=== PATIENT | female | born 1940 | race Caucasian/White ===

== ENCOUNTER 2019-05-05 20:40 | Inpatient (IN) | payer MEDICARE, SELFPAY ==
[2019-05-05] VITALS (7 sets, daily range): BP systolic 131–151; BP diastolic 63–79; PULSE 70–87; RESP 15–26; TEMP 36.8–38.8; O2SAT 91–99; BMI 33.6
--- NOTE | 2019-05-05 21:14 | CT_ITS ---
STUDY: CT BRAIN WITHOUT CONTRAST REASON FOR EXAM: Female, 79 years old. Fever, headache and confusion. History of Parkinson's disease and dementia. RADIATION DOSAGE (If Supplied By Facility): CTDIvol = ( 44.99 ) mGy, DLP = ( 779.24 ) mGycm TECHNIQUE: Transaxial CT imaging of the brain was performed without administration of intravenous contrast material. Individualized dose optimization techniques were used for this CT. COMPARISON: June 17, 2016. FINDINGS: Normal soft tissue structures. There is a right ventricular shunt extending from a matti hole in the right frontoparietal region into the anterior right lateral ventricle. There is no visualized break in the shunt catheter. Normal size ventricles and extra-axial spaces for the patient's age. Normal white matter tracts of the cerebral hemispheres. Normal basal ganglia and thalami. Normal brainstem. Normal cerebellum. There is no intracranial hemorrhage. There are no findings of an acute ischemic infarction. Normal visualized paranasal sinuses. CT/Brain/Head without Contrast IMPRESSION: 1. STEWARD/STEWARDESS CHIEF CARGO VESSEL shunt catheter without change from the earlier study. 2. No evidence of acute intracranial or calvarial abnormality or interval change. Electronically Signed: Brannon Membreno DO at 22:29 EDT Tel [phone], Service support ,
--- NOTE | 2019-05-05 21:21 | RAD_ITS ---
STUDY: X-RAY CHEST REASON FOR EXAM: Female, 79 years old. Fever TECHNIQUE: Frontal view of the chest COMPARISON: X-ray chest April 03, 2016 FINDINGS: COUTIERIER shunt partially visualized. Pulmonary vascular prominence is present with mild right perihilar edema or trace infiltrate. There are no pleural effusions. There is no pneumothorax. The heart is normal in size. The visualized osseous structures are within normal limits. RAD/Chest 1 View (Portable) IMPRESSION: Pulmonary vascular prominence with mild right perihilar edema or trace infiltrate. Electronically Signed: Fito Bhatti, at 21:37 EDT Tel , Service support ,
[2019-05-05 22:17] LABS: ALB/GLOB Ratio 0.7 RATIO (0.9-2.4); AST(SGOT) 37 U/L (15-37); Alanine Aminotransfer ALT/SGPT 27 U/L (13-56); Albumin, Serum 3.1 g/dL (3.2-5.0); Alkaline Phosphatase 83 U/L (45-117); Anion Gap 7 (5-15); BUN 13 mg/dL (7-18); BUN/Creat Ratio 18.2 RATIO (10-20); Calcium,Total 9.1 mg/dL (8.5-10.1); Chloride 92 mmol/L (98-107); Creatinine, Serum 0.72 mg/dL (0.55-1.02); EST Glomerular Filtration Rate 84 mL/min (>60); Est Glom Filt Rate - Afr Amer 101 mL/min (>60); Estimated Creatinine Clearance 48.97 ml/min; Globulin 4.3 g/dL (2.2-4.2); Glucose 140 mg/dL (74-106); Potassium 3.9 mmol/L (3.5-5.1); Protein, Total 7.4 g/dL (6.4-8.2); Sodium Level 123 mmol/L (136-145)
[2019-05-05 22:21] LABS: Absolute Neutrophil Count 14.9 X10^3/uL (2.0-7.7); Basophil# 0.01 X10^3/uL; Basophil% 0.1 % (0-1); Eosinophil# 0.01 X10^3/uL; Eosinophils% 0.1 % (0-5); Hematocrit 31.7 % (37-47); Lymphocyte % 6.5 % (19-41); Mean Corp Hgb Conc 34.7 g/gl (32-36); Mean Corpuscular Volume 92.2 fL (81-99); Mean Platelet Vol. 10.1 fl (6.2-12.0); Monocyte% 5.3 % (0-10); Neutrophil # 14.89 X10^3/uL (2.7-7.7); Neutrophil % 87.6 % (47-70); Platelet Count 291 K/mm3 (150-450); RBC Distribution Width CV 13.6 % (11.6-14.6); RBC Distribution Width SD 45.5 fl (35.1-43.9); Red Blood Count 3.44 M/mm3 (4.2-5.4)
[2019-05-05 22:22] LABS: POSITIVE COUNT NO; POSITIVE DIFFERENTIAL NO; POSITIVE MORPHOLOGY NO
[2019-05-05 22:52] LABS: Bacteria 0 SEEN /hpf (None Seen); Color, Urine Yellow (Yellow); Glucose, Dipstick Normal (Normal); Ketone-Dipstick Negative (Negative); Leukocyte Esterase-Dipstick 25 /ul (Negative); Mucous, Urine 0 SEEN /hpf (<or=2+); Nitrite-Dipstick Negative (Negative); Occult Blood-Urine 150 /ul (Negative); Protein-Dipstick 100 mg/dl (Negative); Urine Bilirubin Dipstick Negative (Negative); Urine Clarity Clear (Clear); Urine Urobilinogen Normal (Normal)
[2019-05-05 23:00] LABS: Red Blood Cells-Urine 5-10 SEEN /hpf (0-5); Squamous Epithelial Cells - UA 0-5 SEEN /hpf (5-10); White Blood Cells 0-5 SEEN /hpf (0-5)
[2019-05-05] MEDS: Acetaminophen 325 MG Tablet 650 MG PO (23:00)
--- NOTE | 2019-05-05 23:00 | HP.PCM_ITS ---
Problem List (1) Sepsis Status: Acute History of Present Illness Date of Admission: 05/05/19 Chief Complaint: confusion The patient is a 79 year old F with a significant history of NPH s/p TOWER CRANE OPERATOR shunt; hypertension; essential tremors who lives at assisted living facility; and who presented to the emergency department because of confusion. Associated with symptoms is a fever of 102.5; and chills while at assisted living facility. She was given some Tylenol fpc. The fpc notified patient's daughter of the fever. Per patient's daughter patient sounded confused while she(daughter) was chatting with patient daughter over the phone. Also although patient does have a cough from postnasal drip her daughter thinks that the emergency department patient was coughing more. Her cough is not productive of sputum. CT of the emergency department was unremarkable. Chest x-ray showed pulmonary vascular prominence with moderate right perihilar edema or trace infiltrate. Patient was found to have elevated white count and low sodium at the emergency department. Per daughter because of cognitive changes in the last several weeks patient was evaluated for urinary tract infection and and her urinalysis was unremarkable. Her daughter thinks that patient confusion improved even before patient got to the emergency department; and even before antibiotics was started. Past Medical History Past Medical History (Chronic Problems): Chronic Problems Hypertension (Chronic) Osteoarthritis (Chronic) Diabetes mellitus, type II (Chronic) Benign essential tremor (Chronic) Being cared for by Dr. Mane Allergies Sulfa (Sulfonamide Antibiotics) Allergy (Verified 11/11/17 09:26) Unknown peanut Adverse Reaction (Verified 11/11/17 09:26) Other Home Medications: Ambulatory Orders Medication Instructions Recorded Acetaminophen 2 tab PO TID 09/03/17 Acetaminophen [Tylenol] 2 tab PO Q4H PRN 09/03/17 Atenolol 50 mg PO DAILY 09/03/17 Calcium Carbonate/Vitamin D3 1 each PO DAILY 09/03/17 [Calcium 500-Vit D3 200 Tablet] Hydrochlorothiazide [Hctz] 25 mg PO QODAY 09/03/17 Lisinopril 20 mg PO DAILY 09/03/17 Multivitamins,Therapeutic 1 tablet PO DAILY 09/03/17 [Multivitamin] Ondansetron HCl [Zofran] 4 mg PO Q8H PRN 09/03/17 Oxycodone HCl [Roxicodone] 5 mg PO Q4H PRN 09/03/17 Polyethylene Glycol 3350 [Miralax] 17 gm PO DAILY PRN 09/03/17 Primidone [Mysoline] 50 mg PO TID 09/03/17 Pyridoxine HCl [Vitamin B6] 150 mg PO DAILY 09/03/17 Sertraline HCl [Zoloft] 50 mg PO DAILY 09/03/17 Hyoscyamine Sulfate 0.125 mg SL Q12H PRN PRN 11/11/17 Potassium Chloride [Klor-Con M15] 20 meq PO DAILY 11/11/17 Surgical History: tonsillectomy Psychiatric History: No pertinent psych hx CLARIFIER History: No pertinent CLARIFIER history Lives: Longterm Smoking Status: Never smoker - *Family History Maternal History Items: Seizures, - - Temporal arteritis Paternal History Items: Heart Disease Review of Systems Constitutional: Reports: Chills, Fever. Denies: Weight Change HEENT: Denies: Head Aches, Sinus Congestion, Sinus Drainage Cardiovascular: Denies: Chest Pain, Palpitations Respiratory: Reports: Cough. Denies: Shortness of breath at rest, Sputum production Gastrointestinal: Denies: Abdominal Pain, Nausea, Vomiting Genitourinary: Denies: Dysuria Musculoskeletal: Denies: Joint Pain, Joint Tenderness Skin: Denies: Rash, Wounds Neurological: Denies: Numbness, Tingling, Focal weakness Psychiatric: Denies: Homicidal Ideations, Suicidal Ideations Hematologic/ Lymphatic: Denies: Easy Bruising, Easy Bleeding VTE Information - Inpt Only VTE Present on Admission: No VTE Mechan Device Prophylaxis: None VTE Pharm Prophylaxis ordered?: Yes Patient Problems: Active and Suspected Problems Community acquired bacterial pneumonia (Acute) Sepsis (Acute) Hyponatremia (Acute) - Physical Exam General: Alert, Cooperative, - - Patient is oriented to the year, month and place. She was not oriented to the day. HEENT: Atraumatic, PERRLA, EOMI, Normocephalic Neck: Supple, No JVD, Negative Carotid Bruits Lungs: Rales - Mild and scattered, Wheezes - Mild and scattered Cardiovascular: Regular rate, No murmurs Abdomen: Bowel Sounds Present, Soft, Non Tender Extremities: No edema, Capillary Refill Less than 3 Seconds Skin: No rashes, No breakdown Musculoskeletal: No Tenderness to Palpation of Joints or Extremities Neurological: Cranial nerves II-XII grossly intact Psych/Mental Status: Normal Affect, Appropriate Vital Signs Temp Pulse Resp BP Pulse Ox 100.1 F H 87 26 H 134/70 H 97 05/05/19 22:34 05/05/19 22:59 05/05/19 22:59 05/05/19 22:59 05/05/19 22:59 Oxygen Delivery Method Room Air Weight: 68 kg Body Mass Index (BMI) 33.6 Laboratory Tests Past 24 Hrs 05/05/19 05/05/19 05/05/19 21:52 21:52 21:52 WBC 17.0 H RBC 3.44 L Hgb 11.0 L Hct 31.7 L MCV 92.2 MCH 32.0 MCHC 34.7 RDW 13.6 RDW Differential 45.5 H Plt Count 291 MPV 10.1 Immature Gran % (Auto) 0.400 Neut % (Auto) 87.6 H Lymph % (Auto) 6.5 L [place] % (Auto) 5.3 Eos % (Auto) 0.1 Baso % (Auto) 0.1 Absolute Neuts (auto) 14.9 H Absolute Lymphs (auto) 1.10 Total Counted Not Reportable Sodium 123 L Potassium 3.9 Chloride 92 L Carbon Dioxide 24.0 Anion Gap 7 BUN 13 Creatinine 0.72 Estim Creat Clear Calc 48.97 Est GFR (MDRD) Af Amer 101 Est GFR (MDRD) Non-Af 84 BUN/Creatinine Ratio 18.2 Glucose 140 H Lactic Acid 1.0 Calcium 9.1 Total Bilirubin 0.30 AST 37 ALT 27 Alkaline Phosphatase 83 Total Protein 7.4 Albumin 3.1 L Globulin 4.3 H Albumin/Globulin Ratio 0.7 L Urine Color Urine Clarity Urine pH Ur Specific [place] Urine Protein Urine Glucose (UA) Urine Ketones Urine Occult Blood Urine Nitrite Urine Bilirubin Urine Urobilinogen Ur Leukocyte Esterase Urine RBC Urine WBC Ur Squamous Epith Cells Urine Bacteria Urine Mucus 05/05/19 22:45 WBC RBC Hgb Hct MCV MCH MCHC RDW RDW Differential Plt Count MPV Immature Gran % (Auto) Neut % (Auto) Lymph % (Auto) [place] % (Auto) Eos % (Auto) Baso % (Auto) Absolute Neuts (auto) Absolute Lymphs (auto) Total Counted Sodium Potassium Chloride Carbon Dioxide Anion Gap BUN Creatinine Estim Creat Clear Calc Est GFR (MDRD) Af Amer Est GFR (MDRD) Non-Af BUN/Creatinine Ratio Glucose Lactic Acid Calcium Total Bilirubin AST ALT Alkaline Phosphatase Total Protein Albumin Globulin Albumin/Globulin Ratio Urine Color Yellow Urine Clarity Clear Urine pH 7.0 Ur Specific [place] 1.010 Urine Protein 100 H Urine Glucose (UA) Normal Urine Ketones Negative Urine Occult Blood 150 H Urine Nitrite Negative Urine Bilirubin Negative Urine Urobilinogen Normal Ur Leukocyte Esterase 25 H Urine RBC 5-10 SEEN Urine WBC 0-5 SEEN Ur Squamous Epith Cells 0-5 SEEN Urine Bacteria 0 SEEN Urine Mucus 0 SEEN Assessment/Plan All Active Problems Community acquired bacterial pneumonia (Acute) Sepsis (Acute) Hyponatremia (Acute) Tremor (Acute) Confusion (Acute) Gastroenteritis (Acute) Hypokalemia (Acute) Physical debility (Acute) The patient is a 79 year old F with a significant history of NPH s/p TOWER CRANE OPERATOR shunt; hypertension; essential tremors who lives at assisted living facility; and who presented to the emergency department because of confusion; fever and found to have leukocytosis; radiographic evidence of infiltrate and hyponatremia consistent with sepsis secondary to pneumonia.. Sepsis secondary to pneumonia Lactic acid: 1 RR ~20 to 24 on admission CURB 65: 2 (age; confusion) Blood culture ?2 is pending Chest x-ray: Pulmonary vascular prominence with mild right perihilar edema or trace infiltrate. Chest x-ray was independently reviewed. I agree with radiologist interpretation. Respiratory Gram stain and culture pending Antibiotics: Received ceftriaxone and azithromycin in emergency department; continued DuoNeb scheduled. Albuterol as needed Legionella antigen screen and Strep antigen ordered Trend CBC and BMP. Her brain CT did not show any obstruction from the TOWER CRANE OPERATOR shunt; and per daughter patient confusion was improving even before antibiotics were started at the emergency department. Therefore a TOWER CRANE OPERATOR shunt is less likely. However if patient wax and wane consider TOWER CRANE OPERATOR shunt infection and broaden antibiotics. Her urine was unremarkable for infection however it showed proteinuria patient can follow-up in the outpatient setting. Hyponatremia and hypochloremia On presentation her sodium was 123 Review of old records shows that generally had a sodium has been above 130. 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 Will stop thiazide at this time. Hold potassium chloride while HCTZ is on hold Trend BMP. Confusion unlikely from hyponatremia since his sodium is above 120. Hypertension In regards to age her blood pressure is stable Although patient has sepsis she is not in septic shock will continue at home atenolol and lisinopril. Trend blood pressure and adjust blood pressure medication as necessary Depression/anxiety Zoloft continued Essential tremor Primidone continued Chronic pain Oxycodone continued DVT prophylaxis Subcutaneous Lovenox ordered. Code Visit Inpatient E&M: 49184 Init Hosp L3
--- NOTE | 2019-05-05 23:01 | ED.VIS.GEN ---
History of Present Illness Chief Complaint: Fever Narrative: 79-year-old female presents with fever from an assisted living facility. Her fever was 102.5 today. She had a slight cough but no other significant symptoms. No headache or neck pain. She does have a LOOM OPERATOR APPRENTICE shunt in for normal pressure hydrocephalus but has not had any issues with it. She was not complaining of back or abdominal pain. Bowel movements have been normal. She had a negative urinalysis at the facility. Her daughter is concerned for sepsis and pneumonia. Current severity is moderate. She received Tylenol at the facility. Past Medical History - Allergies and Home Meds Allergies/Adverse Reactions: Allergies Sulfa (Sulfonamide Antibiotics) Allergy (Verified 11/11/17 09:26) Unknown peanut Adverse Reaction (Verified 11/11/17 09:26) Other Primary Care Physician: Karli Thayer DO [Primary Care Provider] - Prior records reviewed: Yes Surgical History: tonsillectomy Smoking Status: Never smoker - Family History Maternal Family History: Reports: No pertinent history Paternal Family History: Reports: No pertinent history Review of Systems ROS: Unable to Obtain All systems negative except as indicated General: Reports: Fever. Denies: Chills, Sweats Eyes: Denies: Visual changes - bilaterally, Diplopia ENT: Denies: Rhinorrhea, Sore throat Cardiovascular: Denies: Chest pain, Palpitations Respiratory: Reports: Cough. Denies: Dyspnea, Dyspnea on exertion Gastrointestinal: Denies: Abdominal pain, Nausea, Vomiting, Diarrhea, Melena, Hematochezia Genitourinary: Denies: Dysuria, Hematuria, Frequency Musculoskeletal: Denies: Back pain, Extremity Pain Skin: Denies: Rash, Wounds Neurological: Reports: Weakness. Denies: Headache, Numbness Endocrine: Denies: Polydipsia Hematologic: Denies: Easy bleeding Physical Exam Vital Signs/Narrative: Vital Signs Temp Pulse Resp BP Pulse Ox 05/05/19 22:59 87 26 H 134/70 H 97 05/05/19 22:34 100.1 F H 83 20 H 134/70 H 94 05/05/19 22:04 99.0 F 78 15 134/70 H 99 05/05/19 20:47 98.3 F 71 15 131/67 H 92 05/05/19 20:40 98.3 F 70 18 131/63 H 91 Inital Vital Signs reviewed: Yes General: Well nourished, No Acute Distress Head: Normocephalic Eyes: Perrl ENT: Dry mucous membranes Neck: Supple Cardiovascular: Regular rate, Regular rhythm, No murmurs, Normal S1, Normal S2 Respiratory: No distress, CTA bilaterally Abdomen: Soft, Nontender, Nondistended, Normal bowel sounds Back: Nontender Extremities: Nontender, No edema Skin: Normal color, No rash Neurological: Alert, Oriented x3, Cranial nerves II-XII grossly intact Psychological: Normal affect Diagnostic/Tx/Re-eval - Medical Decision Making Chest x-ray reveals right perihilar infiltrate. Urinalysis is unremarkable. Blood and urine cultures were sent. Lactic acid is normal. White blood cell count is 17,000 and sodium is 123. She was given IV Rocephin and Zithromax. She has not been hospitalized in the past 3 months and she is at the assisted living side of the facility, not nursing home so she is community-acquired pneumonia by definition. CT brain is negative and she has no neck pain or other findings to suggest a LOOM OPERATOR APPRENTICE shunt issue. She has remained him dynamically stable and appears safe for admission to [facility]. ED Disposition - Plan for ED Patient: Disposition: Acute Care Hospital [facility] Diagnosis: Hyponatremia, Community acquired bacterial pneumonia, Sepsis Referrals: Karli Thayer DO [Primary Care Provider] -
[2019-05-05] MEDS: Ceftriaxone 1 GM/50 ML BAG IV (23:09)
[2019-05-06] VITALS (13 sets, daily range): BP systolic 125–133; BP diastolic 57–91; PULSE 65–85; RESP 16–18; TEMP 36.9–38.7; O2SAT 92–95; BMI 33.0; BMI 33.4
[2019-05-06] MEDS: 0.9% Normal Saline 1,000 ML 75 ML IV (01:00)
[2019-05-06] MEDS: Primidone 50 MG Tablet PO ×3 (06:02→21:30)
[2019-05-06] MEDS: Acetaminophen 325 MG Tablet 650 MG PO ×3 (06:11→23:28)
[2019-05-06 06:34] LABS: Absolute Lymphocyte Count 0.71 X10^3/ul (0.83-4.51); Absolute Neutrophil Count 11.4 X10^3/uL (2.0-7.7); Basophil# 0.01 X10^3/uL; Basophil% 0.1 % (0-1); Eosinophil# 0.01 X10^3/uL; Eosinophils% 0.1 % (0-5); Hematocrit 29.9 % (37-47); Hemoglobin 10.3 g/dl (12.0-15.0); Lymphocyte # 0.71 X10^3/ul (4.0); Lymphocyte % 5.5 % (19-41); Mean Corp Hgb Conc 34.4 g/gl (32-36); Mean Corpuscular Hgb 31.7 pg (27.0-32.0); Mean Platelet Vol. 10.2 fl (6.2-12.0); Monocyte# 0.85 X10^3/uL; Monocyte% 6.5 % (0-10); Neutrophil # 11.38 X10^3/uL (2.7-7.7); Neutrophil % 87.3 % (47-70); Platelet Count 263 K/mm3 (150-450); RBC Distribution Width CV 13.6 % (11.6-14.6); RBC Distribution Width SD 45.3 fl (35.1-43.9); Red Blood Count 3.25 M/mm3 (4.2-5.4)
[2019-05-06 06:36] LABS: POSITIVE COUNT NO; POSITIVE DIFFERENTIAL NO; POSITIVE MORPHOLOGY NO
[2019-05-06] MEDS: Ipratropium/Albuterol Sulfate 3 ML AMPUL.NEB INHALATION (06:46)
[2019-05-06 06:52] LABS: Anion Gap 11 (5-15); BUN 8 mg/dL (7-18); BUN/Creat Ratio 14.3 RATIO (10-20); Calcium,Total 8.4 mg/dL (8.5-10.1); Chloride 93 mmol/L (98-107); Creatinine, Serum 0.56 mg/dL (0.55-1.02); EST Glomerular Filtration Rate 111 mL/min (>60); Est Glom Filt Rate - Afr Amer 135 mL/min (>60); Estimated Creatinine Clearance 48.67 ml/min; Glucose 120 mg/dL (74-106); Potassium 3.7 mmol/L (3.5-5.1); Sodium Level 127 mmol/L (136-145)
[2019-05-06] MEDS: Sertraline 50 MG Tablet PO (09:38)
[2019-05-06] MEDS: Enoxaparin 40 MG/0.4 ML Syringe SC (09:38)
[2019-05-06] MEDS: Lisinopril 20 MG Tablet PO (09:38)
[2019-05-06] MEDS: Atenolol 50 MG Tablet PO (09:38)
[2019-05-06] MEDS: Calcium Carb/Vitamin D 1 TABLET Tablet PO (09:38)
[2019-05-06] MEDS: guaiFENesin 1,200 MG Tablet 1200 MG PO ×2 (09:39→21:30)
--- NOTE | 2019-05-06 14:26 | PN_ITS ---
Patient Problems: Active and Suspected Problems Community acquired bacterial pneumonia (Acute) Sepsis (Acute) Hyponatremia (Acute) Subjective: The patient is a 79-year-old female with a past medical history of normal pressure hydrocephalus with POWERHOUSE MECHANIC APPRENTICE shunt, hypertension, essential tremors and obesity who lives at an assisted living facility. She presented to the emergency department on 05/05/2019 complaining of confusion. Additionally she had a fever to 102.5 associated with shaking chills. Vital signs at presentation to the emergency room are temperature 98.3, pulse rate 70, blood pressure 131/63, respiratory rate 18, 91% saturation on room air. White blood cell count was elevated at 17 with 88% neutrophils. Hemoglobin was 11 and platelets were within normal limits. There were normochromic normocytic indices with a normal RDW. Sodium was low at 123 and the chloride was 92. BUN was 13 and the creatinine was 0.72. Lactic acid was 1.0. LFTs were normal. UA showed 0-5 white blood cells per high-power field with no bacteria. A noncontrasted CT scan of the brain showed no evidence of acute intracranial or calvarial abnormality or interval change. The POWERHOUSE MECHANIC APPRENTICE shunt was present. Chest x-ray shows a right basilar pneumonia. Blood and urine cultures were sent from the emergency department. She was admitted to a monitored bed on PCU with a diagnosis of sepsis secondary to pneumonia. She was started on ceftriaxone and azithromycin. All events of the past 24 hours of been reviewed. T-max is 101.9. Current temp is 101.1. Vital signs are stable. Pulse ox on room air is 92% but she was tachypneic when I was in the room. All lab was personally reviewed. White blood cell count today is 13, down from 17 at admission. She has a persistent left shift. Hemoglobin is 10.3, down from 11 at admission. Platelets are within normal limits. Sodium is 127 with a chloride of 93. BUN is 8 with a creatinine of 0.56. She is c/o a JALLOH. She reportedly has a cough but she did not cough for the 25 minutes I was in her room. She also is c/o Left knee pain. She denies CP. She denies SOB. - Physical Exam General: Alert, Cooperative, Well developed, Well nourished, - - She is oriented to person and was able to tell me that she is in the hospital. Could not tell me the year or where she lives. She was able to tell me that Viola was the president. She is able to follow simple commands HEENT: Atraumatic, PERRLA, EOMI, Normocephalic, - - she was able to touch her chin to her chest and she has no nuchal rigidity. Oral: Dry Mucosa Neck: Supple, No JVD, Negative Carotid Bruits, No Nodes, No Nuchal Rigidity, Trachea Midline Lungs: No rhonchi, No wheeze, Rales - coarse in the R base, Tachypneic, - - No accessory muscle use Cardiovascular: Regular rate, Regular Rhythm, Normal S1, Normal S2, No murmurs, No Ectopic Activity, No rub noted, No Gallop, - - Telemetry shows normal sinus rhythm with occasional PVC. Abdomen: Bowel Sounds Present, Soft, Non Tender, Non-Distended Extremities: No clubbing, No cyanosis, Edema - of the distal LE's with evidence of venous HTN Skin: No rashes Neurological: Cranial nerves II-XII grossly intact, Neuro grossly intact Psych/Mental Status: Agitated - at times and appropriate at others Vital Signs Temp Pulse Resp BP Pulse Ox 101.1 F H 70 18 132/91 H 92 05/06/19 13:40 05/06/19 13:40 05/06/19 13:40 05/06/19 13:40 05/06/19 13:40 Oxygen Delivery Method Room Air Weight: 148 lb 15.991 oz Body Mass Index (BMI) 33.4 Intake and Output for Last 24 Hours 05/04/19 05/05/19 05/06/19 23:59 23:59 23:59 Intake Total 1326 / 1326 Balance 1326 / 1326 Microbiology Past 72 Hours 05/06/19 10:25 Streptococcus pneumoniae Antigen (M - Final Urine Catheter - Catheter 05/06/19 10:25 Legionella Antigen - Final Urine Catheter - Catheter Laboratory Tests Past 24 Hrs 05/05/19 05/05/19 05/05/19 21:52 21:52 21:52 WBC 17.0 H RBC 3.44 L Hgb 11.0 L Hct 31.7 L MCV 92.2 MCH 32.0 MCHC 34.7 RDW 13.6 RDW Differential 45.5 H Plt Count 291 MPV 10.1 Immature Gran % (Auto) 0.400 Neut % (Auto) 87.6 H Lymph % (Auto) 6.5 L [place] % (Auto) 5.3 Eos % (Auto) 0.1 Baso % (Auto) 0.1 Absolute Neuts (auto) 14.9 H Absolute Lymphs (auto) 1.10 Total Counted Not Reportable Sodium 123 L Potassium 3.9 Chloride 92 L Carbon Dioxide 24.0 Anion Gap 7 BUN 13 Creatinine 0.72 Estim Creat Clear Calc 48.97 Est GFR (MDRD) Af Amer 101 Est GFR (MDRD) Non-Af 84 BUN/Creatinine Ratio 18.2 Glucose 140 H Lactic Acid 1.0 Calcium 9.1 Total Bilirubin 0.30 AST 37 ALT 27 Alkaline Phosphatase 83 Total Protein 7.4 Albumin 3.1 L Globulin 4.3 H Albumin/Globulin Ratio 0.7 L Urine Color Urine Clarity Urine pH Ur Specific [place] Urine Protein Urine Glucose (UA) Urine Ketones Urine Occult Blood Urine Nitrite Urine Bilirubin Urine Urobilinogen Ur Leukocyte Esterase Urine RBC Urine WBC Ur Squamous Epith Cells Urine Bacteria Urine Mucus 05/05/19 05/06/19 05/06/19 22:45 05:15 05:15 WBC 13.0 H RBC 3.25 L Hgb 10.3 L Hct 29.9 L MCV 92.0 MCH 31.7 MCHC 34.4 RDW 13.6 RDW Differential 45.3 H Plt Count 263 MPV 10.2 Immature Gran % (Auto) 0.500 Neut % (Auto) 87.3 H Lymph % (Auto) 5.5 L [place] % (Auto) 6.5 Eos % (Auto) 0.1 Baso % (Auto) 0.1 Absolute Neuts (auto) 11.4 H Absolute Lymphs (auto) 0.71 L Total Counted Not Reportable Sodium 127 L Potassium 3.7 Chloride 93 L Carbon Dioxide 23.0 Anion Gap 11 BUN 8 Creatinine 0.56 Estim Creat Clear Calc 48.67 Est GFR (MDRD) Af Amer 135 Est GFR (MDRD) Non-Af 111 BUN/Creatinine Ratio 14.3 Glucose 120 H Lactic Acid Calcium 8.4 L Total Bilirubin AST ALT Alkaline Phosphatase Total Protein Albumin Globulin Albumin/Globulin Ratio Urine Color Yellow Urine Clarity Clear Urine pH 7.0 Ur Specific [place] 1.010 Urine Protein 100 H Urine Glucose (UA) Normal Urine Ketones Negative Urine Occult Blood 150 H Urine Nitrite Negative Urine Bilirubin Negative Urine Urobilinogen Normal Ur Leukocyte Esterase 25 H Urine RBC 5-10 SEEN Urine WBC 0-5 SEEN Ur Squamous Epith Cells 0-5 SEEN Urine Bacteria 0 SEEN Urine Mucus 0 SEEN Medical Necessity - Tobacco Use Smoking Status: Never smoker Assessment/Plan All Active Problems Community acquired bacterial pneumonia (Acute) Sepsis (Acute) Hyponatremia (Acute) Tremor (Acute) Confusion (Acute) Gastroenteritis (Acute) Hypokalemia (Acute) Physical debility (Acute) Impressions 1. severe sepsis with encephalopathy possibly due to CAP but with a pt with a POWERHOUSE MECHANIC APPRENTICE shunt and JALLOH can not rule out infected POWERHOUSE MECHANIC APPRENTICE shunt at this time. 2. RLL CAP 3. Hyponatremia - due to SIADH or to sodium depletion related to HCTZ? Will check a urine sodium and a urine and serum osmolality since she has been off diuretics for 24 hours. 4. NPH with a POWERHOUSE MECHANIC APPRENTICE shunt 5. Hypertension 6. Osteoarthritis 7. Diabetes mellitus type 2-apparently diet controlled because the patient is on no oral hypoglycemics or insulin 8. Essential tremor-on Mysoline 9. Anxiety/depression-on Zoloft 10. Normochromic normocytic anemia with a normal RDW DC Rocephin and azithromycin. Start meropenem 2 g IV every 8 hours and vancomycin LP under fluoroscopy tomorrow by Dr. Milner-I talked to her daughter Jeanna and she will come in to sign the consent form MRI of the brain tomorrow with and without contrast Consult Dr. Guevara Tylenol 650 mg p.o. every 6 hours to prevent temperature fluctuations and shaking chills Urine and blood cultures are pending Haldol 2 mg IV every 6 hours as needed agitation Hold enoxaparin in the a.m. in preparation for lumbar puncture Recheck lab in the a.m. Urine sodium and urine and serum osmolality now Hemoglobin A1c in the a.m. Discontinue duo nebs because the patient is not wheezing. Continue albuterol every 2 hours as needed If she has an infected POWERHOUSE MECHANIC APPRENTICE shunt she will need to be transferred to [facility] to have the shunt removed. Code Visit Inpatient E&M: 59798 [facility] L3
--- NOTE | 2019-05-06 15:23 | PCM.RX.CS ---
Consult Pharmacy has been consulted to manage selected antiobiotic: Vancomycin Type of Consult: New start Suspected Infection: Other - Infected BAND CUTTING MACHINE OPERATOR Shunt Labs: Sodium 127 mmol/L (136-145) L 05/06/19 05:15 Potassium 3.7 mmol/L (3.5-5.1) 05/06/19 05:15 Chloride 93 mmol/L (98-107) L 05/06/19 05:15 Carbon Dioxide 23.0 mmol/L (21.0-32.0) 05/06/19 05:15 11 (5-15) 05/06/19 05:15 BUN 8 mg/dL (7-18) 05/06/19 05:15 0.56 mg/dL (0.55-1.02) 05/06/19 05:15 Est GFR (MDRD) Af Amer 135 mL/min (>60) 05/06/19 05:15 Est GFR (MDRD) Non-Af 111 mL/min (>60) 05/06/19 05:15 14.3 RATIO (10-20) 05/06/19 05:15 Glucose 120 mg/dL (74-106) H 05/06/19 05:15 Microbiology: Microbiology 05/06/19 10:25 Urine Catheter - Catheter Streptococcus pneumoniae Antigen (M - Final 05/06/19 10:25 Urine Catheter - Catheter Legionella Antigen - Final Weight used for dosin kg Estimated Creatinine Clearance: 44 mL/min Goal Trough: 15-20 mcg/mL Pharmacy Plan for Drug Dosing: Vancomycin 1250mg IV x1 followed by 750mg IV q12h with trough prior to 4th dose per policy. Pharmacy Service will continue to monitor and adjust dosing as required. Follow-Up Labs: Trough Vancomycin - 05/08 @ 4643
[2019-05-06 16:06] LABS: Allen Test POS; Base Excess -6 mmol/L (-2 to +2); Bicarbonate 17.8 mmol/L (22-26); Blood Gas Specimen Type ART; O2 Delivery Device Room Air; PO2 64 mmHG (75-100); SITE L Radial; SO2 94 % (95-99); Time Given 1555; Total Carbon Dioxide 19 mmol/L; pCO2 25.2 mmHg (35-45); pH 7.46 (7.35-7.45)
[2019-05-06 16:34] LABS: T4 Free Direct 0.92 ng/dL (0.76-1.46); Thyroid Stim Hormone (TSH) 1.05 uIU/mL (0.358-3.74)
[2019-05-06 16:38] LABS: Osmolality, Serum 257 mOsm/KG (280-301)
[2019-05-07] VITALS (7 sets, daily range): BP systolic 123–144; BP diastolic 62–79; PULSE 64–72; RESP 16–20; TEMP 36.6–36.9; O2SAT 96–97
[2019-05-07] MEDS: Vancomycin IV 500 MG/100 ML BAG 100 MG IV (04:05)
[2019-05-07 04:23] LABS: Urine Sodium 26 mmol/L (Not Establ.)
[2019-05-07 04:31] LABS: Osmolality, Urine 458 mOsm/KG
[2019-05-07 05:35] LABS: Absolute Lymphocyte Count 1.45 X10^3/ul (0.83-4.51); Absolute Neutrophil Count 9.2 X10^3/uL (2.0-7.7); Basophil# 0.01 X10^3/uL; Basophil% 0.1 % (0-1); Eosinophil# 0.08 X10^3/uL; Eosinophils% 0.7 % (0-5); Hematocrit 28.2 % (37-47); Hemoglobin 9.5 g/dl (12.0-15.0); Lymphocyte # 1.45 X10^3/ul (4.0); Lymphocyte % 12.5 % (19-41); Mean Corp Hgb Conc 33.7 g/gl (32-36); Mean Corpuscular Volume 92.2 fL (81-99); Mean Platelet Vol. 10.2 fl (6.2-12.0); Monocyte# 0.71 X10^3/uL; Monocyte% 6.1 % (0-10); Neutrophil # 9.23 X10^3/uL (2.7-7.7); Neutrophil % 79.5 % (47-70); Platelet Count 249 K/mm3 (150-450); RBC Distribution Width CV 13.7 % (11.6-14.6); RBC Distribution Width SD 44.2 fl (35.1-43.9); Red Blood Count 3.06 M/mm3 (4.2-5.4); White Blood Count 11.6 K/mm3 (4.4-11.0)
[2019-05-07 05:38] LABS: POSITIVE COUNT NO; POSITIVE DIFFERENTIAL NO; POSITIVE MORPHOLOGY NO
[2019-05-07 05:45] LABS: Anion Gap 11 (5-15); BUN 11 mg/dL (7-18); BUN/Creat Ratio 20.7 RATIO (10-20); Chloride 97 mmol/L (98-107); Creatinine, Serum 0.53 mg/dL (0.55-1.02); EST Glomerular Filtration Rate 118 mL/min (>60); Est Glom Filt Rate - Afr Amer 143 mL/min (>60); Estimated Creatinine Clearance 48.67 ml/min; Glucose 125 mg/dL (74-106); Phosphorus 1.7 mg/dL (2.5-4.9); Potassium 3.3 mmol/L (3.5-5.1); Sodium Level 131 mmol/L (136-145)
[2019-05-07] MEDS: Acetaminophen 325 MG Tablet 650 MG PO ×2 (06:08→12:19)
[2019-05-07] MEDS: Primidone 50 MG Tablet PO ×2 (06:08→14:16)
--- NOTE | 2019-05-07 08:37 | PN_ITS ---
Patient Problems: Active and Suspected Problems Community acquired bacterial pneumonia (Acute) Sepsis (Acute) Hyponatremia (Acute) Subjective: Day #2 vancomycin and Merrem All events of the past 24 hours been reviewed. T-max 101.1 on 05/06/2019 at 1340. Her last temp was 98.4. She was started on scheduled Tylenol yesterday to prevent shaking chills Blood pressure is stable and within normal limits. She is currently 96% saturated on 2 L nasal cannula. Very poor oral intake All lab was personally reviewed. White blood cell count is 11.6 today with 80% neutrophils and 1.1% immature granulocytes. ABG showed pH of 7.46 with PCO2 of 25 and a PO2 of 64 on room air. She was placed on 2 L nasal cannula. Tachypnea improved after being placed on oxygen. Sodium today is 131 and the potassium is low at 3.3. Supplementation has been ordered. The BUN is 11 and the creatinine is 0.53 today. Phosphorus is low at 1.7. Magnesium is normal at 2. Serum osmolality was low at 257 yesterday. Urine osmolality was 458 and the random sodium was 26. Hemoglobin A1c is 6.0. - Physical Exam Vital Signs Temp Pulse Resp BP Pulse Ox 98.4 F 65 16 144/79 H 96 05/07/19 03:29 05/07/19 07:25 05/07/19 03:29 05/07/19 03:29 05/07/19 03:29 Oxygen Flow Rate (L/min) 2 Oxygen Delivery Method Nasal Cannula Weight: 148 lb 15.991 oz Body Mass Index (BMI) 33.4 Intake and Output for Last 24 Hours 05/05/19 05/06/19 05/07/19 23:59 23:59 23:59 Intake Total 1858 169 / 169 Output Total 300 / 300 Balance 1858 -131 / -131 Microbiology Past 72 Hours 05/06/19 10:25 Streptococcus pneumoniae Antigen (M - Final Urine Catheter - Catheter 05/06/19 10:25 Legionella Antigen - Final Urine Catheter - Catheter Laboratory Tests Past 24 Hrs 05/06/19 05/06/19 05/06/19 15:42 15:42 15:59 WBC RBC Hgb Hct MCV MCH MCHC RDW RDW Differential Plt Count MPV Immature Gran % (Auto) Neut % (Auto) Lymph % (Auto) [place] % (Auto) Eos % (Auto) Baso % (Auto) Absolute Neuts (auto) Absolute Lymphs (auto) Total Counted Specimen Type ART Sample Site L Radial pH 7.46 H Bicarbonate Actual 17.8 L POC Total CO2 19 Base Excess -6 L O2 Saturation 94 L ABG pCO2 25.2 L ABG pO2 64 L Christian Test POS O2 Delivery Device Room Air Blood Gas Notified Whom [facility] Blood Gas Notified Time 1555 Sodium Potassium Chloride Carbon Dioxide Anion Gap BUN Creatinine Estim Creat Clear Calc Est GFR (MDRD) Af Amer Est GFR (MDRD) Non-Af BUN/Creatinine Ratio Glucose Hemoglobin A1c Serum Osmolality 257 L Calcium Phosphorus Magnesium TSH 1.05 Free T4 0.92 Urine Osmolality Ur Random Sodium 05/07/19 05/07/19 05/07/19 03:45 03:45 05:14 WBC 11.6 H RBC 3.06 L Hgb 9.5 L Hct 28.2 L MCV 92.2 MCH 31.0 MCHC 33.7 RDW 13.7 RDW Differential 44.2 H Plt Count 249 MPV 10.2 Immature Gran % (Auto) 1.100 H Neut % (Auto) 79.5 H Lymph % (Auto) 12.5 L [place] % (Auto) 6.1 Eos % (Auto) 0.7 Baso % (Auto) 0.1 Absolute Neuts (auto) 9.2 H Absolute Lymphs (auto) 1.45 Total Counted Not Reportable Specimen Type Sample Site pH Bicarbonate Actual POC Total CO2 Base Excess O2 Saturation ABG pCO2 ABG pO2 Christian Test O2 Delivery Device Blood Gas Notified Whom Blood Gas Notified Time Sodium Potassium Chloride Carbon Dioxide Anion Gap BUN Creatinine Estim Creat Clear Calc Est GFR (MDRD) Af Amer Est GFR (MDRD) Non-Af BUN/Creatinine Ratio Glucose Hemoglobin A1c Serum Osmolality Calcium Phosphorus Magnesium TSH Free T4 Urine Osmolality 458 Ur Random Sodium 26 05/07/19 05/07/19 05:14 05:14 WBC RBC Hgb Hct MCV MCH MCHC RDW RDW Differential Plt Count MPV Immature Gran % (Auto) Neut % (Auto) Lymph % (Auto) [place] % (Auto) Eos % (Auto) Baso % (Auto) Absolute Neuts (auto) Absolute Lymphs (auto) Total Counted Specimen Type Sample Site pH Bicarbonate Actual POC Total CO2 Base Excess O2 Saturation ABG pCO2 ABG pO2 Christian Test O2 Delivery Device Blood Gas Notified Whom Blood Gas Notified Time Sodium 131 L Potassium 3.3 L Chloride 97 L Carbon Dioxide 23.0 Anion Gap 11 BUN 11 Creatinine 0.53 L Estim Creat Clear Calc 48.67 Est GFR (MDRD) Af Amer 143 Est GFR (MDRD) Non-Af 118 BUN/Creatinine Ratio 20.7 H Glucose 125 H Hemoglobin A1c 6.0 Serum Osmolality Calcium 8.0 L Phosphorus 1.7 L Magnesium 2.0 TSH Free T4 Urine Osmolality Ur Random Sodium Medical Necessity - Tobacco Use Smoking Status: Never smoker Assessment/Plan All Active Problems Community acquired bacterial pneumonia (Acute) Sepsis (Acute) Hyponatremia (Acute) Tremor (Acute) Confusion (Acute) Gastroenteritis (Acute) Hypokalemia (Acute) Physical debility (Acute)
[2019-05-07] MEDS: guaiFENesin 1,200 MG Tablet 1200 MG PO (09:37)
[2019-05-07] MEDS: Atenolol 50 MG Tablet PO (09:37)
[2019-05-07] MEDS: Lisinopril 20 MG Tablet PO (09:37)
[2019-05-07] MEDS: Calcium Carb/Vitamin D 1 TABLET Tablet PO (09:37)
[2019-05-07] MEDS: Sertraline 50 MG Tablet PO (09:38)
--- NOTE | 2019-05-07 09:42 | CASEMGMT ---
Social Work Met with pt, daughter/KIRA Meeks and son Richmond in pt room and introduced self and role of SW. Pt is current resident at [facility]. Pt is able to dress self. Staff assists with bathing, medication management and incontinence care. Pt ambulates with a WW and has been able to ambulate 400 feet to dining room daily. At this time, pt is able to ambulate 20 ft at [facility]. This is discussed with pt and family and family is understanding that pt would benefit from SNF prior to return to assisted living as it is required pt goes to dining room independently. Pt uncertain if she would like to go to the [facility] or [facility] [place]. Phone call to [facility] and verified they do have private rooms. Pt and family notified that both facilities have private rooms. Family will talk with pt and let SW know of choice of facilities. ARELY Aggarwal
--- NOTE | 2019-05-07 10:26 | CASEMGMT ---
According to patient Insurance [facility] + [facility], In [facility]: Aide, RENEE, DONATO, Chun, [facility], , [facility], [facility], Felipe. Gil Shabazz, ADRIANCM
--- NOTE | 2019-05-07 11:36 | CASEMGMT ---
Social Work Per physician, pt will be transferred to [facility]. SW met with family and pt and they are aware of transfer and that d/c to SNF will be handled by [facility] staff. Phone call to Camilo at [facility] and informed of pt transfer to [facility] [place]. H&P faxed to [facility]. ARELY Aggarwal
--- NOTE | 2019-05-07 11:37 | PCM.DC.SUM ---
Discharge Date and Diagnosis - Problem List Patient Problems: Active and Suspected Problems Community acquired bacterial pneumonia (Acute) Sepsis (Acute) Hyponatremia (Acute) Date of Admission: 05/05/19 Date of Discharge: 05/07/19 - Primary Discharge Diagnosis Active and Suspected Problems Community acquired bacterial pneumonia (Acute) Severe Sepsis with encephalopathy (Acute) [employer] Shunt infection - suspected Hyponatremia (Acute) Hypokalemia - Secondary Discharge Diagnosis Chronic Problems Hypertension (Chronic) Osteoarthritis (Chronic) Diabetes mellitus, type II (Chronic) Benign essential tremor (Chronic) Obesity NPH Hospital Course and Treatment Imaging Results: Clinical Impression(s) from Imaging Studies Brain CT 05/05/19 21:14 IMPRESSION: 1. [employer] shunt catheter without change from the earlier study. 2. No evidence of acute intracranial or calvarial abnormality or interval change. Electronically Signed: Brannon Membreno DO at 22:29 EDT Tel [phone], Service support , Chest X-Ray 05/05/19 21:21 IMPRESSION: Pulmonary vascular prominence with mild right perihilar edema or trace infiltrate. 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), hypertension, essential tremors and obesity who lives at an assisted living facility. She presented to the emergency department on 05/05/2019 complaining of confusion. Her dtr also states that in the past 2 weeks she has noticed a change in her personality that concerns her. She had a fever to 102.5 associated with shaking chills. Vital signs at presentation to the emergency room were temperature 98.3, pulse rate 70, blood pressure 131/63, respiratory rate 18 and she was 91% saturated on room air. White blood cell count was elevated at 17 with 88% neutrophils. Hemoglobin was 11 and platelets were within normal limits. There were normochromic normocytic indices with a normal RDW. Sodium was low at 123 and the chloride was 92. She was taking HCTZ as an OP. BUN was 13 and the creatinine was 0.72. Lactic acid was 1.0. LFTs were normal. UA showed 0-5 white blood cells per high-power field with no bacteria. A noncontrasted CT scan of the brain showed no evidence of acute intracranial or calvarial abnormality or interval change. Chest x-ray showed a right basilar pneumonia. Blood and urine cultures were sent from the emergency department. On PE she had coarse persistent rales in the R base with no wheezing. She was admitted to a monitored bed on PCU with a diagnosis of sepsis secondary to pneumonia. She was started on ceftriaxone and azithromycin. 2 L of NS were ordered. The day after admission to the hospital she told me that it was 1989. She knew she was in a hospital but, could not tell me the name. She could not tell me where she lived. She was agitated at times. She c/o of a JALLOH. She was continuing to have fevers and shaking chills and was placed on scheduled Tylenol for 48 H. Her speech was slow and mildly slurred. She had very minimal cough.....has not coughed on the multiple times I examined her. I had concern about the [employer] shunt possibly being infected. MRI was ordered but, because of the shunt we are unable to do this at our facility. An LP was ordered for the following day. Rocephin and azithromycin were discontinued and she was started on Merrem and Vancomycin. MRI and fluoroscopy guided CT were not available on 05/06/19. On 05/07 her speech was more slow and deliberate and slurred, her daughter commented on the change. Her mentation improved a little.She follows at [facility] main campus for the [employer] shunt and her dtr had recently placed a call to [facility] neurologist about the change in personality over the preceding 1-2 weeks. She had not received a return phone call yet. I contacted [facility] and the hospitalist service at [place] has accepted transfer of Mrs Pettit. LP was cancelled and will be done at [place]. Dr. Huitron from neurosurgery will consult. Potassium was 3.3 on the day of DC and she received supplementation. Na was up to 131. - Physical Exam General: Alert, Cooperative, Well developed, Well nourished, - - She is oriented to person and was able to tell me that she is in the hospital. Her speech is slower today and somewhat slurred. Able to follow simple commands HEENT: Atraumatic, PERRLA, EOMI, Normocephalic, - - she was able to touch her chin to her chest and she has no nuchal rigidity. Oral: Dry Mucosa but improving Neck: Supple, No JVD, Negative Carotid Bruits, No Nodes, No Nuchal Rigidity, Trachea Midline Lungs: No rhonchi, No wheeze, Rales - coarse in the R base, no longer tachypneic since O2 applied, No accessory muscle use, symmetric chest expansion Cardiovascular: Regular rate, Regular Rhythm, Normal S1, Normal S2, No murmurs, No Ectopic Activity, No rub noted, No Gallop, - - Telemetry shows normal sinus rhythm with occasional PVC. Abdomen: Bowel Sounds Present, Soft, Non Tender, Non-Distended, obese Extremities: No clubbing, No cyanosis, Edema - of the distal LE's with evidence of venous HTN Skin: No rashes Neurological: Cranial nerves II-XII grossly intact, Neuro grossly intact Psych/Mental Status: Agitated - at times and appropriate at others This note was generated with [employer] dictation software. It may contain incorrect words, spelling, and punctuation that were not noted in checking the note before signing. Patient Problems: Active and Suspected Problems Community acquired bacterial pneumonia (Acute) Sepsis (Acute) Hyponatremia (Acute) - Physical Exam Vital Signs Temp Pulse Resp BP Pulse Ox 98.4 F 67 20 H 123/63 H 97 05/07/19 08:50 05/07/19 08:50 05/07/19 08:50 05/07/19 08:50 05/07/19 08:50 Oxygen Flow Rate (L/min) 2 Oxygen Delivery Method Room Air Weight: 148 lb 15.991 oz Body Mass Index (BMI) 33.4 Intake and Output for Last 24 Hours 05/05/19 05/06/19 05/07/19 23:59 23:59 23:59 Intake Total 1858 169 / 169 Output Total 300 / 300 Balance 1858 -131 / -131 Microbiology Past 72 Hours 05/06/19 10:25 Streptococcus pneumoniae Antigen (M - Final Urine Catheter - Catheter 05/06/19 10:25 Legionella Antigen - Final Urine Catheter - Catheter Laboratory Tests Past 24 Hrs 05/06/19 05/06/1905/06/19 15:42 15:42 15:59 WBC RBC Hgb Hct MCV MCH MCHC RDW RDW Differential Plt Count MPV Immature Gran % (Auto) Neut % (Auto) Lymph % (Auto) [place] % (Auto) Eos % (Auto) Baso % (Auto) Absolute Neuts (auto) Absolute Lymphs (auto) Total Counted Specimen Type ART Sample Site L Radial pH 7.46 H Bicarbonate Actual 17.8 L POC Total CO2 19 Base Excess -6 L O2 Saturation 94 L ABG pCO2 25.2 L ABG pO2 64 L Christian Test POS O2 Delivery Device Room Air Blood Gas Notified Whom [facility] Blood Gas Notified Time 1555 Sodium Potassium Chloride Carbon Dioxide Anion Gap BUN Creatinine Estim Creat Clear Calc Est GFR (MDRD) Af Amer Est GFR (MDRD) Non-Af BUN/Creatinine Ratio Glucose Hemoglobin A1c Serum Osmolality 257 L Calcium Phosphorus Magnesium TSH 1.05 Free T4 0.92 Urine Osmolality Ur Random Sodium 05/07/19 05/07/19 05/07/19 03:45 03:45 05:14 WBC 11.6 H RBC 3.06 L Hgb 9.5 L Hct 28.2 L MCV 92.2 MCH 31.0 MCHC 33.7 RDW 13.7 RDW Differential 44.2 H Plt Count 249 MPV 10.2 Immature Gran % (Auto) 1.100 H Neut % (Auto) 79.5 H Lymph % (Auto) 12.5 L [place] % (Auto) 6.1 Eos % (Auto) 0.7 Baso % (Auto) 0.1 Absolute Neuts (auto) 9.2 H Absolute Lymphs (auto) 1.45 Total Counted Not Reportable Specimen Type Sample Site pH Bicarbonate Actual POC Total CO2 Base Excess O2 Saturation ABG pCO2 ABG pO2 Christian Test O2 Delivery Device Blood Gas Notified Whom Blood Gas Notified Time Sodium Potassium Chloride Carbon Dioxide Anion Gap BUN Creatinine Estim Creat Clear Calc Est GFR (MDRD) Af Amer Est GFR (MDRD) Non-Af BUN/Creatinine Ratio Glucose Hemoglobin A1c Serum Osmolality Calcium Phosphorus Magnesium TSH Free T4 Urine Osmolality 458 Ur Random Sodium 26 05/07/19 05/07/19 05:14 05:14 WBC RBC Hgb Hct MCV MCH MCHC RDW RDW Differential Plt Count MPV Immature Gran % (Auto) Neut % (Auto) Lymph % (Auto) [place] % (Auto) Eos % (Auto) Baso % (Auto) Absolute Neuts (auto) Absolute Lymphs (auto) Total Counted Specimen Type Sample Site pH Bicarbonate Actual POC Total CO2 Base Excess O2 Saturation ABG pCO2 ABG pO2 Christian Test O2 Delivery Device Blood Gas Notified Whom Blood Gas Notified Time Sodium 131 L Potassium 3.3 L Chloride 97 L Carbon Dioxide 23.0 Anion Gap 11 BUN 11 Creatinine 0.53 L Estim Creat Clear Calc 48.67 Est GFR (MDRD) Af Amer 143 Est GFR (MDRD) Non-Af 118 BUN/Creatinine Ratio 20.7 H Glucose 125 H Hemoglobin A1c 6.0 Serum Osmolality Calcium 8.0 L Phosphorus 1.7 L Magnesium 2.0 TSH Free T4 Urine Osmolality Ur Random Sodium Home Medications: Medications to take at Discharge Acetaminophen 2 tab PO TID 09/03/17 Acetaminophen [Tylenol] 2 tab PO Q4H PRN 09/03/17 Atenolol 50 mg PO DAILY 09/03/17 Calcium Carbonate/Vitamin D3 [Calcium 500-Vit D3 200 Tablet] 1 each PO DAILY 09/03/17 Hydrochlorothiazide [Hctz] 25 mg PO QODAY 09/03/17 Lisinopril 20 mg PO DAILY 09/03/17 Multivitamins,Therapeutic [Multivitamin] 1 tablet PO DAILY 09/03/17 Ondansetron HCl [Zofran] 4 mg PO Q8H PRN 09/03/17 Oxycodone HCl [Roxicodone] 5 mg PO Q4H PRN 09/03/17 Polyethylene Glycol 3350 [Miralax] 17 gm PO DAILY PRN 09/03/17 Primidone [Mysoline] 50 mg PO TID 09/03/17 Pyridoxine HCl [Vitamin B6] 150 mg PO DAILY 09/03/17 Sertraline HCl [Zoloft] 50 mg PO DAILY 09/03/17 Hyoscyamine Sulfate 0.125 mg SL Q12H PRN PRN 11/11/17 Potassium Chloride [Klor-Con M15] 20 meq PO DAILY 11/11/17 Primary Care Physician: Karli Thayer DO [Primary Care Provider] - Disposition: [facility] Minutes spent on discharge:: 45 Patient Condition:: Stable Medical Necessity - Tobacco Use Smoking Status: Never smoker Tobacco Use: Non-smoker Meaningful Use Info Meaningful Use Diagnoses (Choose all that apply): None applicable Code Visit Inpatient E&M: 08875 Disch Hosp
--- NOTE | 2019-05-07 12:23 | NURSING ---
Pt voided total of 700cc in the last 6hrs. This nurse bladder scanned pt since first void was only 50cc. Bladder scan read 225ml.
--- NOTE | 2019-05-07 12:51 | NURSING ---
Addendum entered by Jeanna Jimenez 05/07/19 16:26: Consuelo CAMPBELL Original Note: Report given to Nurse accepting pt AT [facility] Carmella :Mulu Dominguez. Pt not being picked up until 1514. [facility] is aware.
[2019-05-07] MEDS: 0.9% NaCl Peripheral Flush Adult/Peds IV ×2 (14:16→15:22)
[2019-05-07] MEDS: Na Biphos/Potassium Phosphate PACKET 1 PACKET PO (14:22)
[2019-05-07] MEDS: proCHLORPERazine 10 MG/2 ML Vial 5 MG IV (15:17)
--- NOTE | 2019-05-07 16:27 | NURSING ---
Pt leaving at this time, Called Consuelo CAMPBELL at [facility] to inform that pt now leaving.
== END 2019-05-07 16:30 | disposition short-term general hospital (02) | DRG 91 ==
LOC: ED 23:14 → PCU 23:27
PROVIDERS: Admitting Provider Hospitalist; Emergency Provider Emergency Medicine; Family Provider Internal Medicine; PCP Internal Medicine; Visit Provider Internal Medicine
DX: T85.730A Infection and inflammatory reaction due to ventricular intracranial (communicating) shunt, initial encounter (principal); J15.9 Unspecified bacterial pneumonia; A41.9 Sepsis, unspecified organism; R65.20 Severe sepsis without septic shock; G93.41 Metabolic encephalopathy; E87.1 Hypo-osmolality and hyponatremia; G91.2 (Idiopathic) normal pressure hydrocephalus; Y83.1 Surgical operation with implant of artificial internal device as the cause of abnormal reaction of the patient, or of later complication, without mention of misadventure at the time of the procedure; E87.8 Other disorders of electrolyte and fluid balance, not elsewhere classified; G25.0 Essential tremor; Z98.2 Presence of cerebrospinal fluid drainage device; I10 Essential (primary) hypertension; D64.9 Anemia, unspecified; M19.90 Unspecified osteoarthritis, unspecified site; E87.6 Hypokalemia; E11.9 Type 2 diabetes mellitus without complications; E66.9 Obesity, unspecified; Z68.33 Body mass index [BMI] 33.0-33.9, adult
CPT/HCPCS: 36415; 36600; 70450; 71045; 80048; 80053; 81001; 82803; 83036; 83605; 83735; 83930; 83935; 84100; 84300; 84439; 84443; 85025; 87040; 87077; 87086; 87088; 87186; 87449; 94640; 94667; 97162; 97166; 99285; J2185; J7030; J7040; J7050; P9612; A4216

== ENCOUNTER 2021-04-10 15:07 | Emergency (ER) | payer MEDICARE, MEDICAID, SELFPAY ==
[2019-05-06 00:40] VITALS: BMI 33.4
[2021-04-10 15:07] VITALS: BP 159/76; PULSE 69; RESP 16; TEMP 36.1; O2SAT 93; BMI 33.4
[2021-04-10 15:11] VITALS: BP 159/76; PULSE 70; RESP 16; TEMP 36.1; O2SAT 95
--- NOTE | 2021-04-10 15:32 | EX.ED.DYSGE1 ---
HPI History of Present Illness Chief Complaint: Confusion Informant: patient Narrative Narrative: Patient is an 81-year-old female with a history of dementia, diabetes, Parkinson's, hypertension who presents to the emergency department for suspected confusion. On arrival to the emergency department she is accompanied by her son. He feels like she is at her baseline mental status. She is currently being treated for UTI. She is on ciprofloxacin over the past 4 days. She denies any fevers or chills. She has a mild headache but otherwise has no complaints. She has had some urinary incontinence but denies burning or hematuria. No abdominal pain. No nausea/vomiting or change in bowel movements. No weakness or loss sensation in any extremity. [facility] Medical History (Updated 04/10/21 @ 17:[address] Virgil Rodrigez DO) Diabetes Hyperlipidemia Hypertension Parkinson's disease Home Medications acetaminophen 2 tab PO TID 09/03/17 [History Last Taken 09/02/17] atenolol 50 mg PO DAILY 09/03/17 [History Last Taken 11/13/17 07:00] hydrochlorothiazide 12.5 mg PO QODAY 09/03/17 [History Last Taken 09/01/17] lisinopril 20 mg PO DAILY 09/03/17 [History Last Taken 11/13/17 07:00] multivitamin with folic acid [Thera] 1 tab PO DAILY 09/03/17 [History Last Taken 09/02/17] ondansetron HCl [Zofran] 4 mg PO Q8H PRN 09/03/17 [History Last Taken Unknown] oxycodone [Roxicodone] 5 mg PO Q4H PRN 09/03/17 [History Last Taken Unknown] polyethylene glycol 3350 17 g PO DAILY PRN 09/03/17 [History Last Taken Unknown] primidone 50 mg PO TID 09/03/17 [History Last Taken 09/02/17] pyridoxine (vitamin B6) 150 mg PO DAILY 09/03/17 [History Last Taken 09/02/17] sertraline [Zoloft] 50 mg PO DAILY 09/03/17 [History Last Taken 09/02/17] hyoscyamine sulfate 0.125 mg SUBLINGUAL Q12H PRN PRN 11/11/17 [History Last Taken Unknown] potassium chloride [Klor-Con M15] 30 meq PO DAILY 11/11/17 [History Last Taken Unknown] quetiapine [Seroquel] 25 mg PO QHS 04/10/21 [History Last Taken Unknown] Allergy/AdvReac Type Severity Reaction Status Date / Time Sulfa (Sulfonamide Allergy Unknown Verified 11/11/17 09:26 Antibiotics) peanut AdvReac Other Verified 11/11/17 09:26 Social History Smoking Status: Never smoker ROS ROS ED Constitutional Constitutional ED: Denies chills or fever(s) Eyes Eyes: Denies change in vision ENT ENT ED: Denies epistaxis or rhinorrhea Cardiovascular Cardiovascular: Denies chest pain or palpitations Respiratory/Chest Respiratory/Chest: Denies cough, dyspnea or dyspnea on exertion Gastrointestinal Gastrointestinal: Denies abdominal pain, diarrhea, nausea or vomiting Genitourinary Genitourinary ED: Denies dysuria, hematuria or urinary frequency Musculoskeletal Musculoskeletal: Denies back pain or neck pain Integumentary Denies rash Neurologic Neurologic: Reports headache(s); Denies dizziness or weakness EXAM Physical Exam Const Vital Signs: 04/10/21 15:07 04/10/21 15:11 04/10/21 18:18 Temperature 97.0 F L 97.0 F L Temperature Source Temporal Temporal Pulse Rate 69 70 69 Respiratory Rate 16 16 16 Blood Pressure 159/76 H 159/76 H 174/82 H Blood Pressure Mean 103 103 112 Pulse Ox 93 95 97 Oxygen Delivery Method Room Air Room Air Room Air 04/10/21 18:56 Temperature Temperature Source Pulse Rate 69 Respiratory Rate 16 Blood Pressure 174/82 H Blood Pressure Mean Pulse Ox 97 Oxygen Delivery Method Positive well nourished and well developed General Appearance ED: well developed and NAD HEENT Reports normocephalic, head/scalp atraumatic and moist mucous membranes Eyes PERRL and EOMs intact bilaterally Neck supple Chest Wall inspection of chest normal Resp normal respiratory effort and clear to auscultation bilaterally Auscultation: Negative for rales, rhonchi or wheezes Cardio regular rate, regular rhythm and no murmurs GI normal to inspection, nondistended, normoactive bowel sounds and non-tender Palpation: soft; Negative for guarding or rebound tenderness present Back/Spine no CVA tenderness Extremity normal to inspection General Extremety ED: Negative for edema or tenderness General Extremity: Negative for edema Neuro oriented x3, CN's II-XII intact bilaterally and no sensory deficits noted Sensorium / Orientation: alert Motor Exam: strength 5/5 throughout Psych mental status grossly normal Skin no rashes or lesions noted MDM MDM MDM Narrative Medical decision making narrative: Patient presents to the emergency department as they thought she was confused. She is being treated for UTI currently. On arrival to the emergency department vital signs within normal limits. She has a benign physical exam. She was complaining of mild headache but related this to the ambulance ride in. Patient is alert and oriented. No focal deficits. She states that she was playing bingo whenever they pulled her out of the game. She does not appear confused at all. Her son at bedside states that she is at her baseline mental status. I did speak to her daughter on the phone. 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 I did perform CT scan of the head and this did not show any evidence of elevated intracranial pressure. The shunt is in appropriate position. Her lab work showed a mild anemia but has been improved from previous lab work-up. Her sodium is mildly low but is comparable to previous. She has remained at baseline mental status. She ambulate around the ED without difficulty. This time will discharge home in stable condition. Return precautions are reviewed. She otherwise is to follow-up with her PCP. The family understands and is agreeable with this plan. Lab Data Labs: Laboratory Results - last 24 hr 04/10/21 04/10/21 04/10/21 15:35 15:35 17:54 WBC 8.9 RBC 3.72 L Hgb 11.9 L Hct 34.9 L MCV 93.8 MCH 32.0 MCHC 34.1 RDW Std Deviation 43.8 RDW Coeff of Rola 12.7 Plt Count 427 MPV 11.1 Immature Gran % (Auto) 0.300 Neut % (Auto) 72.8 H Lymph % (Auto) 16.9 L Campbell % (Auto) 8.9 Eos % (Auto) 0.8 Baso % (Auto) 0.3 Absolute Neuts (auto) 6.5 Absolute Lymphs (auto) 1.50 Nucleated RBC % 0 Sodium 132 L Potassium 4.2 Chloride 98 Carbon Dioxide 27.0 Anion Gap 7 BUN 15 Creatinine 0.69 Estim Creat Clear Calc 47.15 Est GFR (MDRD) Af Amer 105 Est GFR (MDRD) Non-Af 87 BUN/Creatinine Ratio 21.8 H Glucose 106 Calcium 9.2 Total Bilirubin 0.20 AST 19 ALT 21 Alkaline Phosphatase 62 Total Protein 7.1 Albumin 3.1 L Globulin 4.0 Albumin/Globulin Ratio 0.8 L Urine Color Yellow Urine Clarity Clear Urine pH 7.0 Ur Specific Holden 1.010 Urine Protein Negative Urine Glucose (UA) Normal Urine Ketones Negative Urine Occult Blood 10 H Urine Nitrite Negative Urine Bilirubin Negative Urine Urobilinogen Normal Ur Leukocyte Esterase 25 H Urine RBC 0 SEEN Urine WBC 0-5 SEEN Ur Squamous Epith Cells 0 SEEN Urine Bacteria 0 SEEN Urine Mucus 0 SEEN Radiography Diagnostic Testing: Radiology Impression Brain CT 04/10/21 17:16 IMPRESSION: Chronic involutional and white matter changes. No acute intracranial process or significant interval change from prior study. Probable acute left maxillary sinusitis same Individualized dose optimization techniques were used for this CT. at 1802 Reported and signed by: Kiran Burgess MD Electronically Signed: Kiran Burgess MD at 18:01 EDT Tel , Service support , Discharge Plan Triage Chief Complaint: Confusion ED Provider: Virgil Rodrigez Dx/Rx/DC Orders Clinical Impression: Chronic hyponatremia, Anemia Instructions: ED ALOC Prescriptions: No Action primidone 50 MG tablet 50 mg PO TID RF: 0 polyethylene glycol 3350 17 GM powder in packet 17 g PO DAILY PRN (Reason: Constipation) RF: 0 lisinopril 20 MG tablet 20 mg PO DAILY RF: 0 ondansetron HCl [Zofran] 4 MG tablet 4 mg PO Q8H PRN (Reason: Nausea) RF: 0 acetaminophen 500 MG tablet 2 tab PO TID RF: 0 pyridoxine (vitamin B6) 50 MG tablet 150 mg PO DAILY RF: 0 hydrochlorothiazide 25 MG tablet 12.5 mg PO QODAY RF: 0 sertraline [Zoloft] 50 MG tablet 50 mg PO DAILY RF: 0 atenolol 50 MG tablet 50 mg PO DAILY RF: 0 oxycodone [Roxicodone] 5 MG tablet 5 mg PO Q4H PRN (Reason: Moderate Pain (4-5/10)) RF: 0 multivitamin with folic acid [Thera] 1 TABLET tablet 1 tab PO DAILY RF: 0 hyoscyamine sulfate 0.125 MG tablet, sublingual 0.125 mg sublingual Q12H PRN PRN (Reason: stomach cramps) RF: 0 Klor-Con M15 15 MEQ tablet,ER particles/crystals 30 meq PO DAILY RF: 0 quetiapine [Seroquel] 25 mg tablet 25 mg PO QHS RF: 0 Primary Care Provider: Karli Thayer Referrals: Karli Thayer DO [Primary Care Provider] - 2 Days Disposition Disposition: Home, self care Discharge Date/Time: 04/10/21 18:56
[2021-04-10 15:47] LABS: Absolute Neutrophil Count 6.5 X10^3/uL (2.0-7.7); Basophil# 0.03 X10^3/uL; Basophil% 0.3 % (0-1); Eosinophil# 0.07 X10^3/uL; Eosinophils% 0.8 % (0-5); Hematocrit 34.9 % (37-47); Hemoglobin 11.9 g/dL (12.0-15.0); Lymphocyte % 16.9 % (19-41); Mean Corp Hgb Conc 34.1 g/dL (32-36); Mean Corpuscular Volume 93.8 fL (81-99); Mean Platelet Vol. 11.1 fl (6.2-12.0); Monocyte# 0.79 X10^3/uL; Monocyte% 8.9 % (0-10); NRBC Flagged by Analyzer 0 % (0-5); Neutrophil # 6.45 X10^3/uL (2.7-7.7); Neutrophil % 72.8 % (47-70); Platelet Count 427 K/mm3 (150-450); RBC Distribution Width CV 12.7 % (11.6-14.6); RBC Distribution Width SD 43.8 fl (35.1-43.9); Red Blood Count 3.72 M/mm3 (4.2-5.4); White Blood Count 8.9 K/mm3 (4.4-11.0)
[2021-04-10 15:59] LABS: ALB/GLOB Ratio 0.8 RATIO (0.9-2.4); AST(SGOT) 19 U/L (15-37); Alanine Aminotransfer ALT/SGPT 21 U/L (13-56); Albumin, Serum 3.1 g/dL (3.2-5.0); Alkaline Phosphatase 62 U/L (45-117); Anion Gap 7 (5-15); BUN 15 mg/dL (7-18); BUN/Creat Ratio 21.8 RATIO (10-20); Calcium,Total 9.2 mg/dL (8.5-10.1); Chloride 98 mmol/L (98-107); Creatinine, Serum 0.69 mg/dL (0.55-1.02); EST Glomerular Filtration Rate 87 mL/min (>60); Est Glom Filt Rate - Afr Amer 105 mL/min (>60); Estimated Creatinine Clearance 47.15 ml/min; Glucose 106 mg/dL (74-106); Potassium 4.2 mmol/L (3.5-5.1); Protein, Total 7.1 g/dL (6.4-8.2); Sodium Level 132 mmol/L (136-145)
--- NOTE | 2021-04-10 17:16 | CT_ITS ---
HISTORY: Hx of NPH, had some intermittent confusion TECHNIQUE: Multiple axial images were obtained of the brain without intravenous contrast. A radiation dose optimization technique was used for this scan. IV Contrast dosage and agent: None. COMPARISON: None FINDINGS: # of images incl. paperwork: [id number] PARANASAL SINUSES AND MASTOID AIR CELLS: Fluid level left maxillary sinus. INTRACRANIAL HEMORRHAGE: None. BRAIN PARENCHYMA: No CT evidence of stroke. No intracranial masses. There is preservation of the davison/white matter interface. Posterior fossa structures are unremarkable. There is hypoattenuation of the periventricular white matter. Chronic involutional changes are noted. CSF SPACES: Stable right frontal ventriculostomy catheter with tip at the midline. Stable mild ventricular dilatation. MASS EFFECT: None. CALVARIUM: No acute fracture. CT/Brain/Head without Contrast IMPRESSION: Chronic involutional and white matter changes. No acute intracranial process or significant interval change from prior study. Probable acute left maxillary sinusitis same Individualized dose optimization techniques were used for this CT. at 1802 Reported and signed by: Kiran Burgess MD Electronically Signed: Kiran Burgess MD at 18:01 EDT Tel , Service support ,
[2021-04-10 18:10] LABS: Bacteria 0 SEEN /hpf (None Seen); Mucous, Urine 0 SEEN /hpf (<or=2+); Red Blood Cells-Urine 0 SEEN /hpf (0-5); Squamous Epithelial Cells - UA 0 SEEN /hpf (5-10)
[2021-04-10 18:15] LABS: Color, Urine Yellow (Yellow); Glucose, Dipstick Normal (Normal); Ketone-Dipstick Negative (Negative); Leukocyte Esterase-Dipstick 25 /ul (Negative); Nitrite-Dipstick Negative (Negative); Occult Blood-Urine 10 /ul (Negative); Protein-Dipstick Negative (Negative); Urine Bilirubin Dipstick Negative (Negative); Urine Clarity Clear (Clear); Urine Urobilinogen Normal (Normal)
[2021-04-10 18:18] VITALS: BP 174/82; PULSE 69; RESP 16; O2SAT 97
--- NOTE | 2021-04-10 18:22 | ED.RN ---
this nurse called Georgina at [facility] with report and pt will be returning via squad.
[2021-04-10 18:28] LABS: White Blood Cells 0-5 SEEN /hpf (0-5)
[2021-04-10 18:56] VITALS: BP 174/82; PULSE 69; RESP 16; O2SAT 97
== END 2021-04-10 18:56 | disposition home or self-care (01) ==
PROVIDERS: Emergency Provider Emergency Medicine; PCP Internal Medicine
DX: R41.0 Disorientation, unspecified (principal); E87.1 Hypo-osmolality and hyponatremia; D64.9 Anemia, unspecified; G91.2 (Idiopathic) normal pressure hydrocephalus; G20 Parkinson's disease; F02.80 Dementia in other diseases classified elsewhere, unspecified severity, without behavioral disturbance, psychotic disturbance, mood disturbance, and anxiety; E11.9 Type 2 diabetes mellitus without complications; I10 Essential (primary) hypertension; E78.5 Hyperlipidemia, unspecified; N39.0 Urinary tract infection, site not specified; R32 Unspecified urinary incontinence; R51.9 Headache, unspecified; Z79.899 Other long term (current) drug therapy
CPT/HCPCS: 70450; 80053; 81001; 85025; 87086; 87088; 99285; A4216

== ENCOUNTER → 2021-04-26 | Outpatient (REF) | payer MEDICARE, MEDICAID, SELFPAY ==
[2021-04-10 15:07] VITALS: BMI 33.4
[2021-04-26 15:56] LABS: Potassium 4.3 mmol/L (3.5-5.1)
== END | disposition home or self-care (01) ==
LOC: OLS.SWAL 14:00
PROVIDERS: PCP Internal Medicine; Referring Provider Internal Medicine; Visit Provider Internal Medicine
DX: E87.5 Hyperkalemia (principal)
CPT/HCPCS: 36415; 84132

== ENCOUNTER → 2021-08-06 04:00 | Outpatient (REF) | payer MEDICARE, MEDICAID, SELFPAY ==
[2021-08-06 08:25] LABS: Hematocrit 35.9 % (37-47); Hemoglobin 11.7 g/dL (12.0-15.0); Mean Corp Hgb Conc 32.6 g/dL (32-36); Mean Corpuscular Hgb 30.2 pg (27.0-32.0); Mean Corpuscular Volume 92.5 fL (81-99); Mean Platelet Vol. 11.1 fl (6.2-12.0); Platelet Count 362 K/mm3 (150-450); RBC Distribution Width CV 14.9 % (11.6-14.6); RBC Distribution Width SD 51.1 fl (35.1-43.9); Red Blood Count 3.88 M/mm3 (4.2-5.4); White Blood Count 9.1 K/mm3 (4.4-11.0)
[2021-08-06 08:30] LABS: Color, Urine Yellow (Yellow); Glucose, Dipstick Normal (Normal); Ketone-Dipstick Negative (Negative); Leukocyte Esterase-Dipstick 500 /ul (Negative); Nitrite-Dipstick Negative (Negative); Occult Blood-Urine 25 /ul (Negative); Protein-Dipstick 15 mg/dl (Negative); Urine Bilirubin Dipstick Negative (Negative); Urine Clarity Sl. Cloudy (Clear); Urine Urobilinogen Normal (Normal)
[2021-08-06 09:05] LABS: Microalbumin,Random Urine 21.6 mg/L (NO RANGE EST.); Microalbumin:Creatinine Ratio 21.9 mg/g CRE (<30 mg/g CRE)
[2021-08-06 09:10] LABS: ALB/GLOB Ratio 0.8 RATIO (0.9-2.4); AST(SGOT) 13 U/L (15-37); Alanine Aminotransfer ALT/SGPT 18 U/L (13-56); Albumin, Serum 3.2 g/dL (3.2-5.0); Alkaline Phosphatase 66 U/L (45-117); Anion Gap 9 (5-15); BUN 14 mg/dL (7-18); Calcium,Total 9.2 mg/dL (8.5-10.1); Chloride 95 mmol/L (98-107); Cholesterol 207 mg/dL (200); Creatinine, Serum 0.67 mg/dL (0.55-1.02); EST Glomerular Filtration Rate 90 mL/min (>60); Est Glom Filt Rate - Afr Amer 109 mL/min (>60); Globulin 4.2 g/dL (2.2-4.2); Glucose 96 mg/dL (74-106); High Density Lipoprotein 76 mg/dL; Potassium 4.2 mmol/L (3.5-5.1); Protein, Total 7.4 g/dL (6.4-8.2); Sodium Level 130 mmol/L (136-145); Thyroid Stim Hormone (TSH) 3.57 uIU/mL (0.358-3.74); Triglycerides 93 mg/dL; Very Low Density Lipoprotein 19 mg/dL (5-40)
== END ==
LOC: OLS.SWAL 04:00
PROVIDERS: PCP Internal Medicine; Visit Provider Internal Medicine
DX: I10 Essential (primary) hypertension (principal); E78.5 Hyperlipidemia, unspecified; E11.9 Type 2 diabetes mellitus without complications
CPT/HCPCS: 36415; 80053; 80061; 81002; 82043; 82570; 84443; 85027

== ENCOUNTER 2021-09-19 08:36 | Observation (INO) | payer MEDICARE, MEDICAID, SELFPAY ==
[2021-09-19] VITALS (16 sets, daily range): BP systolic 124–167; BP diastolic 59–71; PULSE 67–84; RESP 16–18; TEMP 36.5–36.9; O2SAT 95–100; BMI 32.4
--- NOTE | 2021-09-19 08:43 | EKG12_ITS ---
Test Reason : STROKE Blood Pressure : / mmHG Vent. Rate : 077 BPM Atrial Rate : 077 BPM P-R Int : 164 ms QRS Dur : 098 ms QT Int : 390 ms P-R-T Axes : 055 039 059 degrees QTc Int : 441 ms Normal sinus rhythm Normal ECG Confirmed by KADY RICH, PRO ([id number]), dictionary editor CORNELIUS DANIEL ([id number]) on 09/20/2021 2:24:07 P M Referred By: JULIAN Confirmed By:RICHARDSON HILLMAN MD
--- NOTE | 2021-09-19 08:52 | CT_ITS ---
STUDY: CT HEAD STROKE PROTOCOL W/O CONTRAST INJECTION REASON FOR EXAM: Female, 81 years old. NEURO DEFICIENT RADIATION DOSAGE (If Supplied By Facility): CTDIvol = ( 44.99 ) mGy, DLP = ( 779.24 ) mGycm TECHNIQUE: Transaxial CT imaging of the brain was performed without administration of intravenous contrast material. Individualized dose optimization techniques were used for this CT. COMPARISON: Comparison is made with prior study dated 04/10/2021. FINDINGS: Normal soft tissue structures. The right-sided ventricular shunt tube is seen with the tip in the medial aspect of the right frontal ventricle. There is mild cerebral atrophy with widening of the extra-axial spaces and ventricular dilatation. There are areas of decreased attenuation within the white matter tracts of the supratentorial brain, consistent with microvascular disease changes. Small old lacunar infarct in the left basal ganglia. Normal brainstem. Normal cerebellum. There is no intracranial hemorrhage. There are no findings of an acute ischemic infarction. There is atherosclerotic calcification of the vertebral arteries and cavernous portions of the internal carotid arteries bilaterally. Minimal mucosal thickening along the inferior aspect of the left maxillary sinus. CT/STROKE Brain/Head without Cont IMPRESSION: Chronic involutional changes of the brain. N.B. : The above Results were Read Back by Sabas Milner MD to Dr Natanael MD, and understanding confirmed on 09/19/2021 09:10:51 (ET). Electronically Signed: Sabas Milner MD at 9:11 EST , Service support ,
--- NOTE | 2021-09-19 08:53 | CT_ITS ---
STUDY: CTA HEAD AND NECK WITH CONTRAST REASON FOR EXAM: Female, 81 years old. NEURO DEFICIT RADIATION DOSAGE (If Supplied By Facility): CTDIvol = ( 14.03 ) mGy, DLP = ( 508.92 ) mGycm TECHNIQUE: CT angiography was performed with a multi-detector CT scanner. Data acquisition was obtained from the skull base through the vertex following intravenous administration of IV 100mL [id number]-[id number]. MIP images were reconstructed from the axial data set. Post-processing of the angiographic images was performed, with multiplanar reformation and 3D reconstruction. Individualized dose optimization techniques were used for this CT. COMPARISON: No relevant priors. FINDINGS: Normal bilateral petrous carotid arteries. There is calcified plaque formation of the right cavernous carotid artery, without a cross-sectional luminal stenosis. There is calcified plaque formation of the left cavernous carotid artery, without a cross-sectional luminal stenosis. Normal right A1 segments of the anterior cerebral artery. Normal left A1 segments of the anterior cerebral artery. Normal intact anterior communicating artery (ACOM). Normal bilateral A2 segments of the anterior cerebral arteries. Normal right M1 and M2 segments of the middle cerebral arteries, with a normal M1 bifurcation. Normal left M1 and M2 segments of the middle cerebral arteries, with a normal M1 bifurcation. Normal right posterior communicating artery (PCOM). Normal left posterior communicating artery (PCOM). Normal bilateral vertebral arteries. Normal basilar artery with a normal basilar bifurcation. The visualized bilateral superior cerebellar (SCA) arteries are normal. Normal bilateral P1, P2 and visualized P3 segments of the posterior cerebral arteries. There is no demonstrated aneurysm of the [place]. Heterogeneous appearance of both lobes of the thyroid gland. AORTIC ARCH: There is atherosclerotic calcific plaque formation of the aortic arch and great vessels arising from the aortic arch, without a hemodynamically significant stenosis. There is a normal origin of the brachiocephalic, left common carotid, and left subclavian arteries. Atherosclerotic plaque is seen at the origin of the right brachiocephalic artery and left subclavian artery. Scarring in the upper lobes RIGHT CAROTID ARTERIES: Normal right common carotid artery (CCA). Normal right common carotid bulb. There is mild atherosclerotic plaque formation of the origin of the right internal carotid artery with less than 50% cross sectional diameter stenosis. Normal visualized cervical portion of the right internal carotid artery. Normal origin of the right external carotid artery (ECA). LEFT CAROTID ARTERIES: Normal left common carotid artery (CCA). Normal left common carotid bulb. There is mild atherosclerotic plaque formation of the origin of the left internal carotid artery with less than 50% cross sectional diameter stenosis. Normal visualized cervical portion of the left internal carotid artery. Normal origin of the left external carotid artery (ECA). VERTEBRAL ARTERIES: Normal bilateral vertebral arteries. CT/STROKE CTA Head AND Neck W/Con IMPRESSION: Atherosclerotic plaques at the origin of both the right and left internal carotid artery causing less than 50% luminal narrowing. N.B. : The above Results were Read Back by Sabas Milner MD to Dr Natanael MD, and understanding confirmed on 09/19/2021 09:15:11 (ET). Electronically Signed: Sabas Milner MD at 9:16 EST , Service support ,
--- NOTE | 2021-09-19 08:54 | NURSING ---
[id number] STROKE ALERT CALLED PRIOR TO ARRIVAL
[2021-09-19 09:23] LABS: Absolute Lymphocyte Count 1.27 X10^3/uL (0.83-4.51); Absolute Neutrophil Count 6.5 X10^3/uL (2.0-7.7); Basophil# 0.02 X10^3/uL; Basophil% 0.2 % (0-1); Eosinophil# 0.02 X10^3/uL; Eosinophils% 0.2 % (0-5); Hematocrit 28.8 % (37-47); Hemoglobin 9.7 g/dL (12.0-15.0); Lymphocyte # 1.27 X10^3/ul (0.83-4.51); Lymphocyte % 14.9 % (19-41); Mean Corp Hgb Conc 33.7 g/dL (32-36); Mean Corpuscular Hgb 29.1 pg (27.0-32.0); Mean Corpuscular Volume 86.5 fL (81-99); Mean Platelet Vol. 10.6 fl (6.2-12.0); Monocyte# 0.67 X10^3/uL; Monocyte% 7.9 % (0-10); NRBC Flagged by Analyzer 0 % (0-5); Neutrophil % 76.2 % (47-70); Platelet Count 382 K/mm3 (150-450); RBC Distribution Width CV 14.1 % (11.6-14.6); RBC Distribution Width SD 44.2 fl (35.1-43.9); Red Blood Count 3.33 M/mm3 (4.2-5.4); White Blood Count 8.5 K/mm3 (4.4-11.0)
[2021-09-19 09:29] LABS: International Normalized Ratio 1.1; Prothrombin Time (Protime)PT. 13.9 SECONDS (11.7-14.9)
[2021-09-19 09:30] LABS: Partial Thromboplast Time 34.9 Seconds (24.1-36.2)
[2021-09-19 09:37] LABS: Anion Gap 8 (5-15); BUN 13 mg/dL (7-18); BUN/Creat Ratio 24.2 RATIO (10-20); Calcium,Total 8.6 mg/dL (8.5-10.1); Chloride 90 mmol/L (98-107); Creatinine, Serum 0.54 mg/dL (0.55-1.02); EST Glomerular Filtration Rate 116 mL/min (>60); Est Glom Filt Rate - Afr Amer 140 mL/min (>60); Estimated Creatinine Clearance 45.69 ml/min; Glucose 126 mg/dL (74-106); Sodium Level 123 mmol/L (136-145); Troponin-I HS 4 pg/mL (3.0-54.0)
--- NOTE | 2021-09-19 09:47 | RAD_ITS ---
STUDY: X-RAY CHEST REASON FOR EXAM: Female, 81 years old. Neuro deficit, acute, stroke suspected TECHNIQUE: Single AP portable view of the chest. COMPARISON: Comparison is made with prior study dated 04/25/2021. FINDINGS: A right-sided ventriculoperitoneal shunt tube is seen. EKG electrodes are seen. The lungs are clear and expanded. There is no demonstrated pleural abnormality. Normal size heart. Normal mediastinum and susan. Normal visualized pulmonary arteries. There is atherosclerotic calcification of the aortic arch with tortuosity. There are diffuse degenerative changes of the visualized thoracic spine. There is degenerative osteoarthritis of the bilateral shoulders. There is no demonstrated abnormality of the visualized soft tissue structures of the upper abdomen. RAD/Chest 1 View IMPRESSION: No acute abnormality is seen. Electronically Signed: Sabas Milner MD at 10:25 EST , Service support ,
[2021-09-19 10:26] LABS: Color, Urine Straw (Yellow); Glucose, Dipstick Normal (Normal); Ketone-Dipstick Negative (Negative); Leukocyte Esterase-Dipstick 25 /ul (Negative); Nitrite-Dipstick Negative (Negative); Occult Blood-Urine 10 /ul (Negative); Protein-Dipstick Negative (Negative); Specific Gravity, Urine 1.015 (1.002-1.030); Urine Bilirubin Dipstick Negative (Negative); Urine Clarity Clear (Clear); Urine Urobilinogen Normal (Normal)
[2021-09-19 10:41] LABS: Bacteria RARE /hpf (None Seen); Mucous, Urine RARE /hpf (<or=2+); Red Blood Cells-Urine 0 SEEN /hpf (0-5); Squamous Epithelial Cells - UA 0-5 SEEN /hpf (5-10); White Blood Cells 0-5 SEEN /hpf (0-5)
--- NOTE | 2021-09-19 10:57 | ED.VIS.STROK ---
HPI History of Present Illness Chief Complaint: Neuro S/Sx Detail of Chief Complaint: Mental status change with slow deliberate speech. Informant: patient, family and EMS Onset/Context/Timing Onset: Today Timing: Continuous Quality and Location: Negative for Right Facial Droop, Left Facial Droop, Right Face Paresthesia, Left Face Parasthesia, Right Arm Parasthesia, Left Arm Parasthesia, Right Leg Parasthesia, Left Leg Parasthesia, Right Arm Weakness, Left Arm Weakness, Right Leg Weakness, Left Leg Weakness, Slurred Speech, Expressive Aphasia, Receptive Aphasia and Difficulty with Ambulation Current Severity: Mild Maximum Severity: Mild Associated Symptoms Associated Symptoms: Negative for Headache, Nausea, Vomiting and Chest Pain Narrative Narrative: 81-year-old female history of prior hydrocephalus with a shunt. Patient lives in assisted living facility. Reportedly has a history of a shunt that was placed at [facility]. She fell several days ago they thought she was well. Last night 9 PM she was doing well. This morning she had trouble getting out of bed had to be assisted. Which is not her baseline. Also had slow deliberate speech. She is not on any blood thinners. Prior similar symptoms: No Recent Illness/Hospitalization: [facility] Medical History Diabetes Hyperlipidemia Hypertension Parkinson's disease Home Medications acetaminophen 2 tab PO TID 09/03/17 [History Last Taken 09/02/17] atenolol 50 mg PO DAILY 09/03/17 [History Last Taken 11/13/17 07:00] hydrochlorothiazide 12.5 mg PO QODAY 09/03/17 [History Last Taken 09/01/17] lisinopril 20 mg PO DAILY 09/03/17 [History Last Taken 11/13/17 07:00] multivitamin with folic acid [Thera] 1 tab PO DAILY 09/03/17 [History Last Taken 09/02/17] ondansetron HCl [Zofran] 4 mg PO Q8H PRN 09/03/17 [History Last Taken Unknown] oxycodone [Roxicodone] 5 mg PO Q4H PRN 09/03/17 [History Last Taken Unknown] polyethylene glycol 3350 17 g PO DAILY PRN 09/03/17 [History Last Taken Unknown] primidone 50 mg PO TID 09/03/17 [History Last Taken 09/02/17] pyridoxine (vitamin B6) 150 mg PO DAILY 09/03/17 [History Last Taken 09/02/17] sertraline [Zoloft] 50 mg PO DAILY 09/03/17 [History Last Taken 09/02/17] hyoscyamine sulfate 0.125 mg SUBLINGUAL Q12H PRN PRN 11/11/17 [History Last Taken Unknown] potassium chloride [Klor-Con M15] 30 meq PO DAILY 11/11/17 [History Last Taken Unknown] quetiapine [Seroquel] 25 mg PO QHS 04/10/21 [History Last Taken Unknown] Allergy/AdvReac Type Severity Reaction Status Date / Time Sulfa (Sulfonamide Allergy Unknown Verified 09/19/21 09:00 Antibiotics) peanut AdvReac Other Verified 09/19/21 09:00 Surgical History S/P WRAPPER STRIPPER shunt Social History Smoking Status: Never smoker ROS ROS ED ROS Narrative Orders. Review of Systems ROS Unobtainable: Denies due to encephalopathy Constitutional Constitutional ED: Denies chills or fever(s) Eyes Eyes: Denies change in vision ENT ENT ED: Denies ear pain Cardiovascular Cardiovascular: Denies chest pain Respiratory/Chest Respiratory/Chest: Denies cough or dyspnea Gastrointestinal Gastrointestinal: Denies abdominal pain, diarrhea, nausea or vomiting Genitourinary Genitourinary ED: Denies dysuria or hematuria Musculoskeletal Musculoskeletal: Denies myalgias Integumentary Denies rash Neurologic Neurologic: Denies headache(s) Psychiatric Psychiatric: Denies depression Endocrine Endocrinology: Denies polyuria Hematologic/Lymphatic Hematologic/Lymphatic: Denies easy bruising Allergic/Immunologic Allergic/Immunologic ED: Denies urticaria EXAM Physical Exam Narrative Exam Narrative: 81-year-old female brought in by squad met in the ambulance bay. HEENT exam unremarkable. No facial droop. She is able to speak H is slow and deliberate. There is no trauma to her face. Neck nontender no lymphadenopathy. Lungs are clear. Heart regular rhythm no murmur. Abdomen soft nontender. Moving all 4 extremities. She has 5-5 disassembler product strength in both hands. She is weak in both legs equally. She can move them. She flex and extends in her knees. Neurologically she is awake. She answers questions and follows commands. She does seem slow to respond and deliberate with her words. Her speech is not slurred it is easily understood. Const Vital Signs: 09/19/21 08:40 09/19/21 08:43 09/19/21 08:48 Temperature 97.9 F 97.8 F Temperature Source Temporal Oral Pulse Rate 74 69 74 Respiratory Rate 18 18 18 Blood Pressure 160/69 H 167/68 H 160/69 H Blood Pressure Mean 99 101 99 Pulse Ox 98 99 97 Oxygen Delivery Method Room Air Room Air Room Air 09/19/21 09:00 09/19/21 09:13 09/19/21 09:23 Temperature 98 F Temperature Source Oral Pulse Rate 74 74 Respiratory Rate 18 18 Blood Pressure 158/71 H 156/63 H Blood Pressure Mean 100 94 Pulse Ox 99 98 98 Oxygen Delivery Method Room Air Room Air Room Air 09/19/21 09:30 09/19/21 10:00 Temperature Temperature Source Pulse Rate 73 69 Respiratory Rate 18 18 Blood Pressure 160/69 H 150/71 H Blood Pressure Mean 99 97 Pulse Ox 100 98 Oxygen Delivery Method Room Air Room Air Positive well nourished and well developed; Negative for cachectic, contractures or unkempt General Appearance ED: well developed and NAD; Negative for unkempt, cachectic or contractures Nutritional Appearance: Negative for cachectic HEENT Reports moist mucous membranes; Denies TM's clear atraumatic; Negative for trauma Tympanic Membrane ED: Negative for TM's clear Eyes PERRL and EOMs intact bilaterally Neck no lymphadenopathy, supple and no JVD General: Negative for tenderness Chest Wall inspection of chest normal and palpation of chest normal Resp normal respiratory effort and clear to auscultation bilaterally Auscultation: Negative for rales, rhonchi or wheezes Cardio no murmurs Rate: regular rate Rhythm: regular rhythm Heart Sounds: S1 normal and S2 normal GI normal to inspection, nondistended, normoactive bowel sounds, soft to palpation, non-tender, non-distended and no masses Auscultation: normoactive bowel sounds Palpation: Negative for tender, guarding or rebound tenderness present Back/Spine no CVA tenderness Extremity Negative for normal to inspection Extremity Narrative: Mild bilateral edema. General Extremety ED: Yes edema; Negative for tenderness General Extremity: edema Neuro Neuro Narrative: Awake and alert. Answers questions and follows commands. Slow and deliberate speech. No focal motor deficits other than both legs equally weak. Sensorium / Orientation: alert and oriented to person Psych mental status grossly normal Appearance: Negative for unkempt Skin no wounds General Skin Exam: Negative for jaundice Lesions: no lesions Rashes: no rashes and No rashes noted STROKE Vital Signs/Narrative: Vital Signs Temp Pulse Resp BP Pulse Ox 09/19/21 10:00 69 18 150/71 H 98 09/19/21 09:30 73 18 160/69 H 100 09/19/21 09:23 98 09/19/21 09:13 74 18 156/63 H 98 09/19/21 09:00 98 F 74 18 158/71 H 99 09/19/21 08:48 97.8 F 74 18 160/69 H 97 09/19/21 08:43 69 18 167/68 H 99 09/19/21 08:40 97.9 F 74 18 160/69 H 98 MDM MDM MDM Narrative Medical decision making narrative: Patient brought in for slow deliberate speech. Fell several days ago at the custodial. Has had a history of hydrocephalus in the past and has a shunt. Repeat exam unchanged at 11:05 AM. Discussed at length with patient's family her test results and admission. I have already spoken to the hospitalist will be admitted to the PCU. Lab Data Attestation: I reviewed the patient's lab results. Lab results narrative: CBC shows a white count 8.5 hemoglobin 9.7. Platelets 382. PT, INR PTT unremarkable. Electrolytes show a sodium of 123 gap of 8 normal BUN and creatinine glucose 126. Urinalysis negative. No signs of infection. The hemoglobin of 9.7 is her baseline anemia. The hyponatremia is new. CT head and neck shows 50% internal carotid plaques bilaterally. Otherwise no acute abnormality. CT of the brain no acute abnormality. There is hydronephrosis which is known from hydrocephalus. Labs: Laboratory Results - last 24 hr 09/19/21 09/19/21 09/19/21 08:54 08:54 08:54 WBC 8.5 RBC 3.33 L Hgb 9.7 L Hct 28.8 L MCV 86.5 MCH 29.1 MCHC 33.7 RDW Std Deviation 44.2 H RDW Coeff of Rola 14.1 Plt Count 382 MPV 10.6 Immature Gran % (Auto) 0.600 Neut % (Auto) 76.2 H Lymph % (Auto) 14.9 L [place] % (Auto) 7.9 Eos % (Auto) 0.2 Baso % (Auto) 0.2 Absolute Neuts (auto) 6.5 Absolute Lymphs (auto) 1.27 Nucleated RBC % 0 PT 13.9 INR 1.1 APTT 34.9 Sodium 123 L Potassium 4.0 Chloride 90 L Carbon Dioxide 25.0 Anion Gap 8 BUN 13 Creatinine 0.54 L Estim Creat Clear Calc 45.69 Est GFR (MDRD) Af Amer 140 Est GFR (MDRD) Non-Af 116 BUN/Creatinine Ratio 24.2 H Glucose 126 H Calcium 8.6 Troponin I High Sens 4 Urine Color Urine Clarity Urine pH Ur Specific [place] [employer] Urine Protein Urine Glucose (UA) Urine Ketones Urine Occult Blood Urine Nitrite Urine Bilirubin Urine Urobilinogen Ur Leukocyte Esterase Urine RBC Urine WBC Ur Squamous Epith Cells Urine Bacteria Urine Mucus 09/19/21 10:21 WBC RBC Hgb Hct MCV MCH MCHC RDW Std Deviation RDW Coeff of Rola Plt Count MPV Immature Gran % (Auto) Neut % (Auto) Lymph % (Auto) [place] % (Auto) Eos % (Auto) Baso % (Auto) Absolute Neuts (auto) Absolute Lymphs (auto) Nucleated RBC % PT INR APTT Sodium Potassium Chloride Carbon Dioxide Anion Gap BUN Creatinine Estim Creat Clear Calc Est GFR (MDRD) Af Amer Est GFR (MDRD) Non-Af BUN/Creatinine Ratio Glucose Calcium Troponin I High Sens Urine Color Straw Urine Clarity Clear Urine pH 8.0 Ur Specific [place] [employer] 1.015 Urine Protein Negative Urine Glucose (UA) Normal Urine Ketones Negative Urine Occult Blood 10 H Urine Nitrite Negative Urine Bilirubin Negative Urine Urobilinogen Normal Ur Leukocyte Esterase 25 H Urine RBC 0 SEEN Urine WBC 0-5 SEEN Ur Squamous Epith Cells 0-5 SEEN Urine Bacteria RARE Urine Mucus RARE Radiography Diagnostic Testing: Clinical Impression(s) from Imaging Studies Brain CT 09/19/21 08:52 IMPRESSION: Chronic involutional changes of the brain. N.B. : The above Results were Read Back by Sabas Milner MD to Dr Natanael MD, and understanding confirmed on 09/19/2021 09:10:51 (ET). Electronically Signed: Sabas Milner MD at 9:11 EST , Service support , ADDENDUM: 09/19/21 0918 IMPRESSION: Chronic involutional changes of the brain. N.B. : The above Results were Read Back by Sabas Milner MD to Dr Natanael MD, and understanding confirmed on 09/19/2021 09:10:51 (ET). Electronically Signed: Sabas Milner MD at 9:11 EST , Service support , Head/Neck CTA 09/19/21 08:53 IMPRESSION: Atherosclerotic plaques at the origin of both the right and left internal carotid artery causing less than 50% luminal narrowing. N.B. : The above Results were Read Back by Sabas Milner MD to Dr Natanael MD, and understanding confirmed on 09/19/2021 09:15:11 (ET). Electronically Signed: Sabas Milner MD at 9:16 EST , Service support , ADDENDUM: 09/19/21 0923 IMPRESSION: Atherosclerotic plaques at the origin of both the right and left internal carotid artery causing less than 50% luminal narrowing. N.B. : The above Results were Read Back by Sabas Milner MD to Dr Natanael MD, and understanding confirmed on 09/19/2021 09:15:11 (ET). Electronically Signed: Sabas Milner MD at 9:16 EST , Service support , Chest X-Ray 09/19/21 09:47 IMPRESSION: No acute abnormality is seen. Electronically Signed: Sabas Milner MD at 10:25 EST , Service support , Rhythm Strip Rhythm Strip: Sinus Rhythm Rate: 77 Ectopy: None EKG Initial EKG: Attestation: I personally reviewed and interpreted this EKG as follows: Interpretation: Sinus Rhythm Comments: Normal sinus rhythm rate of 77 no acute signs of [place] or ischemia. Unchanged from an EKG from 5 years ago in May 2016. Prior EKG tracings: available for review Prior: Unchanged Discharge Plan Dx/Rx/DC Orders Clinical Impression: Confusion, Hyponatremia, History of hydrocephalus Disposition Disposition: Acute Care Hospital [facility]
--- NOTE | 2021-09-19 11:09 | HP.PCM.HOS_ITS ---
HPI - General General Date of Admission: 09/19/21 HPI Narrative GAGE CONNOR, is a 81 F with a PMH as outlined who was admitted from her SNF via the ED with a complaint of altered mental status and neurological symptoms, concerning for a stroke. Daughter said patient had sustained a fall a few days prior to admission. Patient had become weaker since then was noted to be more confused today so she was brought in from her assisted living facility to the ED. She had no associated chills, fever, cough or chest pain, nausea vomiting or palpitations. She had not had any urinary symptoms. There was concern about a mouth droop. EMS so she was brought in per stroke protocol. She however had had no focal weakness and family had not noted any mouth droop. CT of the brain done in the ED was negative and at time of my review, patient was alert and oriented though lethargic carrying a conversation. Daughter said patient was noted to have lower extremity swelling as well. She has a history of normal pressure hydrocephalus for which she had a shunt placed circa [address] [facility] and follows up now at [facility]. In the ED, vitals were temperature of 97.7 with pulse rate of 72, blood pressure of 124/77 and she was saturating at 97% on room air. CBC was unremarkable apart from hemoglobin of 9.7 and WBC of 8.5 and platelets were 382. Chemistry shows sodium of 123 and chloride of 90. BNP was only 27. Urinalysis showed no evidence of UTI and CT of the brain done was negative for any evidence of infarct. CTA of the head and neck showed mild atherosclerotic plaque formation at the origin of the left internal carotid artery with less than 50% cross-sectional diameter stenosis and also a calcific plaque formation at the right cavernous carotid artery without across luminal stenosis. She has been admitted to manage for acute metabolic encephalopathy which is suspected to be due to hyponatremia. Of note, I did discuss with Dr. Copeland of radiology about the CT scan and compared the ventricle sizes with previous ventricle sizes. There was no enlargement so there is no concern for blocked shunt. [facility] Medical History Diabetes Hyperlipidemia Hypertension Parkinson's disease Home Medications acetaminophen 2 tab PO TID 09/03/17 [History Last Taken 09/02/17] atenolol 50 mg PO DAILY 09/03/17 [History Last Taken 11/13/17 07:00] hydrochlorothiazide 12.5 mg PO QODAY 09/03/17 [History Last Taken 09/01/17] lisinopril 20 mg PO DAILY 09/03/17 [History Last Taken 11/13/17 07:00] multivitamin with folic acid [Thera] 1 tab PO DAILY 09/03/17 [History Last Taken 09/02/17] ondansetron HCl [Zofran] 4 mg PO Q8H PRN 09/03/17 [History Last Taken Unknown] oxycodone [Roxicodone] 5 mg PO Q4H PRN 09/03/17 [History Last Taken Unknown] polyethylene glycol 3350 17 g PO DAILY PRN 09/03/17 [History Last Taken Unknown] primidone 50 mg PO TID 09/03/17 [History Last Taken 09/02/17] pyridoxine (vitamin B6) 150 mg PO DAILY 09/03/17 [History Last Taken 09/02/17] sertraline [Zoloft] 50 mg PO DAILY 09/03/17 [History Last Taken 09/02/17] hyoscyamine sulfate 0.125 mg SUBLINGUAL Q12H PRN PRN 11/11/17 [History Last Taken Unknown] potassium chloride [Klor-Con M15] 30 meq PO DAILY 11/11/17 [History Last Taken Unknown] quetiapine [Seroquel] 25 mg PO QHS 04/10/21 [History Last Taken Unknown] Allergy/AdvReac Type Severity Reaction Status Date / Time Sulfa (Sulfonamide Allergy Unknown Verified 09/19/21 09:00 Antibiotics) peanut AdvReac Other Verified 09/19/21 09:00 Surgical History 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 Social History Smoking Status: Never smoker ROS Constitutional Constitutional: Reports fatigue, malaise and weakness; Denies anorexia, chills or fever(s) Eyes Eyes: Denies change in vision ENT HEENT: Reports dysphagia; Denies headache(s) Cardiovascular Cardiovascular: Reports edema and palpitations; Denies chest pain, dyspnea on exertion, lightheadedness, orthopnea, paroxysmal nocturnal dyspnea or rapid heart rate Respiratory/Chest Respiratory/Chest: Denies cough, dyspnea, productive cough, shortness of breath at rest or shortness of breath with exertion Gastrointestinal Gastrointestinal: Denies abdominal pain, diarrhea, nausea or vomiting Genitourinary Genitourinary: Denies burning urination, dysuria, urinary frequency or urinary hesitancy Musculoskeletal Musculoskeletal: Denies arthralgias Neurologic Neurologic: Reports confusion and focal weakness; Denies dizziness, headache(s), numbness, seizure-like activity, seizures, syncope or tingling Psychiatric Psychiatric: Denies anxiety or depression Endocrine Endocrinology: Denies change in body appearance Hematologic/Lymphatic Hematologic/Lymphatic: Denies anemia Vital Signs Vital Signs Vital Signs: 09/19/21 08:40 09/19/21 08:43 09/19/21 08:48 Temperature 97.9 F 97.8 F Temperature Source Temporal Oral Pulse Rate 74 69 74 Respiratory Rate 18 18 18 Blood Pressure 160/69 H 167/68 H 160/69 H Blood Pressure Mean 99 101 99 Pulse Ox 98 99 97 Oxygen Delivery Method Room Air Room Air Room Air 09/19/21 09:00 09/19/21 09:13 09/19/21 09:23 Temperature 98 F Temperature Source Oral Pulse Rate 74 74 Respiratory Rate 18 18 Blood Pressure 158/71 H 156/63 H Blood Pressure Mean 100 94 Pulse Ox 99 98 98 Oxygen Delivery Method Room Air Room Air Room Air 09/19/21 09:30 09/19/21 10:00 09/19/21 11:01 Temperature Temperature Source Pulse Rate 73 69 67 Respiratory Rate 18 18 18 Blood Pressure 160/69 H 150/71 H 142/59 H Blood Pressure Mean 99 97 86 Pulse Ox 100 98 98 Oxygen Delivery Method Room Air Room Air Room Air Weight Weight: 144 lb 9.972 oz Body Mass Index (BMI) 32.4 Physical Exam Const alert and oriented x3 General Appearance: cooperative Orientation / Consciousness: lethargic HEENT normocephalic, head/scalp atraumatic, hearing grossly normal bilaterally and moist oral mucous membranes Eyes PERRL, EOMs intact bilaterally and conjunctivae normal Neck no lymphadenopathy, supple and no JVD Resp normal respiratory effort, no retractions, no use of accessory muscles and clear to auscultation bilaterally Cardio regular rate, regular rhythm, S1 normal heart sound, S2 normal heart sound and no murmurs GI normal to inspection, nondistended, normoactive bowel sounds, soft to palpation, non-tender, non-distended and hepatosplenomegaly Extremity normal to inspection and full ROM Extremity Narrative: 1+ bipedal pitting edema Peripheral Pulses: Yes pulses 2+ throughout Skin no rashes or lesions noted Neuro oriented x3, CN's II-XII intact bilaterally and moves all extremities Sensorium / Orientation: awake and alert Psych affect normal Results Lab / Micro Data Result Diagrams: 09/19/21 08:54 09/19/21 08:54 Labs: Laboratory Results - last 24 hr 09/19/21 08:54: WBC 8.5, RBC 3.33 L, Hgb 9.7 L, Hct 28.8 L, MCV 86.5, MCH 29.1, MCHC 33.7, RDW Std Deviation 44.2 H, RDW Coeff of Rola 14.1, Plt Count 382, MPV 10.6, Immature Gran % (Auto) 0.600, Neut % (Auto) 76.2 H, Lymph % (Auto) 14.9 L, [place] % (Auto) 7.9, Eos % (Auto) 0.2, Baso % (Auto) 0.2, Absolute Neuts (auto) 6.5, Absolute Lymphs (auto) 1.27, Nucleated RBC % 0 09/19/21 08:54: PT 13.9, INR 1.1, APTT 34.9 09/19/21 08:54: Sodium 123 L, Potassium 4.0, Chloride 90 L, Carbon Dioxide 25.0, Anion Gap 8, BUN 13, Creatinine 0.54 L, Estim Creat Clear Calc 45.69, Est GFR (MDRD) Af Amer 140, Est GFR (MDRD) Non-Af 116, BUN/Creatinine Ratio 24.2 H, Glucose 126 H, Calcium 8.6, Troponin I High Sens 4 09/19/21 10:21: Urine Color Straw, Urine Clarity Clear, Urine pH 8.0, Ur Specific [place] 1.015, Urine Protein Negative, Urine Glucose (UA) Normal, Urine Ketones Negative, Urine Occult Blood 10 H, Urine Nitrite Negative, Urine Bilirubin Negative, Urine Urobilinogen Normal, Ur Leukocyte Esterase 25 H, Urine RBC 0 SEEN, Urine WBC 0-5 SEEN, Ur Squamous Epith Cells 0-5 SEEN, Urine Bacteria RARE, Urine Mucus RARE Rhythm Strip Rhythm Strip: Sinus Rhythm Rate: 77 Ectopy: None Radiology Impression Brain CT 09/19/21 08:52 IMPRESSION: Chronic involutional changes of the brain. N.B. : The above Results were Read Back by Sabas Milner MD to Dr Natanael MD, and understanding confirmed on 09/19/2021 09:10:51 (ET). Electronically Signed: Sabas Milner MD at 9:11 EST , Service support , ADDENDUM: 09/19/21 0918 IMPRESSION: Chronic involutional changes of the brain. N.B. : The above Results were Read Back by Sabas Milner MD to Dr Natanael MD, and understanding confirmed on 09/19/2021 09:10:51 (ET). Electronically Signed: Sabas Milner MD at 9:11 EST , Service support , Head/Neck CTA 09/19/21 08:53 IMPRESSION: Atherosclerotic plaques at the origin of both the right and left internal carotid artery causing less than 50% luminal narrowing. N.B. : The above Results were Read Back by Sabas Milner MD to Dr Natanael MD, and understanding confirmed on 09/19/2021 09:15:11 (ET). Electronically Signed: Sabas Milner MD at 9:16 EST , Service support , ADDENDUM: 09/19/21 0923 IMPRESSION: Atherosclerotic plaques at the origin of both the right and left internal carotid artery causing less than 50% luminal narrowing. N.B. : The above Results were Read Back by Sabas Milner MD to Dr Natanael MD, and understanding confirmed on 09/19/2021 09:15:11 (ET). Electronically Signed: Sabas Milner MD at 9:16 EST , Service support , Chest X-Ray 09/19/21 09:47 IMPRESSION: No acute abnormality is seen. Electronically Signed: Sabas Milner MD at 10:25 EST , Service support , Assessment & Plan Assessment/Plan (1) Confusion: (2) Physical debility: (3) Dementia: (4) Hyponatremia: PLAN: #Acute metabolic encephalopathy * Likely due to hyponatremia. Patient did not have any overt focal weakness. CT of the brain was also negative. * Patient was alert and oriented x3 when I reviewed her moving all extremities and denied any numbness or tingling or dizziness. I therefore think this is less likely due to a stroke as well as a clear precipitating factor namely hyponatremia. * Will hydrate gently with IV fluids and trend sodium. Goal is to correct sodium between 6 to 8mmol/ L over 24 hours. * PT OT on board. Fall precautions. * Also get blood cultures and light of her having a RESEARCH PROGRAM MANAGER shunt to be sure there is no occult infection. * #Debility due to mechanical fall: PT OT consult. Fall precautions. #Hyponatremia: Sodium is 123. Will order serum and urine osmolality as well as urine sodium. Been hydrated with IV fluids. #Hypertension: On lisinopril and atenolol #Restless leg syndrome: On primidone #DVT prophylaxis: Lovenox
--- NOTE | 2021-09-19 11:10 | NURSING ---
DR MARCIAL RUSH
--- NOTE | 2021-09-19 11:22 | NURSING ---
PCU KORAM HYPONATREMIA, MS CHANGE, HX HYDROCEPHALUS
[2021-09-19] MEDS: 0.9% Normal Saline 1,000 ML 125 ML IV ×2 (13:44→21:33)
[2021-09-19] MEDS: Primidone 50 MG Tablet PO ×2 (15:21→21:34)
[2021-09-19] MEDS: Acetaminophen 500 MG Tablet 1000 MG PO ×2 (15:21→21:33)
[2021-09-19 19:32] LABS: Osmolality, Serum 280 mOsm/KG (280-301)
[2021-09-19 19:32] LABS: Urine Sodium 51 mmol/L (Not Establ.)
[2021-09-19 20:04] LABS: Osmolality, Urine 474 mOsm/KG
[2021-09-19] MEDS: QUEtiapine 25 MG Tablet PO (21:34)
[2021-09-20] VITALS (11 sets, daily range): BP systolic 134–156; BP diastolic 57–78; PULSE 62–81; RESP 12–18; TEMP 36.8–36.9; O2SAT 93–98
[2021-09-20] MEDS: Primidone 50 MG Tablet PO ×3 (05:26→20:27)
[2021-09-20] MEDS: Acetaminophen 500 MG Tablet 1000 MG PO ×3 (05:26→20:24)
[2021-09-20 07:03] LABS: Absolute Lymphocyte Count 1.51 X10^3/uL (0.83-4.51); Absolute Neutrophil Count 6.5 X10^3/uL (2.0-7.7); Basophil# 0.03 X10^3/uL; Basophil% 0.3 % (0-1); Eosinophil# 0.08 X10^3/uL; Eosinophils% 0.9 % (0-5); Hematocrit 29.7 % (37-47); Hemoglobin 9.8 g/dL (12.0-15.0); Lymphocyte # 1.51 X10^3/ul (0.83-4.51); Lymphocyte % 17.2 % (19-41); Mean Corpuscular Hgb 29.1 pg (27.0-32.0); Mean Corpuscular Volume 88.1 fL (81-99); Mean Platelet Vol. 10.7 fl (6.2-12.0); Monocyte# 0.66 X10^3/uL; Monocyte% 7.5 % (0-10); NRBC Flagged by Analyzer 0 % (0-5); Neutrophil # 6.48 X10^3/uL (2.7-7.7); Neutrophil % 73.6 % (47-70); Platelet Count 387 K/mm3 (150-450); RBC Distribution Width CV 14.5 % (11.6-14.6); RBC Distribution Width SD 46.2 fl (35.1-43.9); Red Blood Count 3.37 M/mm3 (4.2-5.4); White Blood Count 8.8 K/mm3 (4.4-11.0)
[2021-09-20 07:38] LABS: Anion Gap 8 (5-15); BUN 7 mg/dL (7-18); BUN/Creat Ratio 15.8 RATIO (10-20); Calcium,Total 8.5 mg/dL (8.5-10.1); Chloride 100 mmol/L (98-107); Creatinine, Serum 0.44 mg/dL (0.55-1.02); EST Glomerular Filtration Rate 145 mL/min (>60); Est Glom Filt Rate - Afr Amer 175 mL/min (>60); Estimated Creatinine Clearance 42.35 ml/min; Glucose 103 mg/dL (74-106); Potassium 3.8 mmol/L (3.5-5.1); Sodium Level 131 mmol/L (136-145)
[2021-09-20] MEDS: Atenolol 50 MG Tablet PO (08:48)
[2021-09-20] MEDS: Lisinopril 20 MG Tablet PO (08:48)
[2021-09-20] MEDS: Multivitamins,Ther W-Minerals Tablet 1 TABLET PO (08:48)
[2021-09-20] MEDS: Potassium Chloride Oral Tablet 10 MEQ 30 MEQ PO (08:48)
[2021-09-20] MEDS: Pyridoxine HCl 50 MG Tablet 150 MG PO (08:48)
[2021-09-20] MEDS: Sertraline 50 MG Tablet PO (08:48)
[2021-09-20] MEDS: Enoxaparin 40 MG/0.4 ML Syringe SC (09:02)
--- NOTE | 2021-09-20 09:23 | CASEMGMT ---
Patient is from [facility]. [facility] faxed clinicals to Camilo at [facility]. [facility] will follow to assist in determining appropriate d/c plan. Cathleen MONTAÑO
--- NOTE | 2021-09-20 12:46 | PCS.PANDOC ---
PANDEMIC DOCUMENTATION INITIATED: Date: 06/18/2021 Time: 190
--- NOTE | 2021-09-20 14:54 | CHAPLAIN ---
Type of Pastoral Visit _x__ Initial Visit ___ Follow-up Visit ___ On-call Visit ___ General Patient Visit ___ Spiritual Assessment ___ Family Conference ___ Bereavement ___ Rapid Response ___ Code Blue ___ Other (describe below) Pastoral Care Referral From _x__ Patient ___ Family ___ Nurse ___ Physician ___ Process Project Engineer ___ Warehouse Order Puller ___ Other (describe below) Sacrament/Intervention _x__ Active listening ___ Anointing ___ Confucianism ___ Bereavement ___ Communion _x__ Madhuri exploration ___ _x__ Life review _x__ Prayer ___ Reconciliation ___ Sacrament of Sick _x__ Supportive presence ___ Wedding ___ Other (describe below) Pastoral Comments patient is lying flat in bed and daughter is in room; pt presents with nervousness, concern about health and her future, and her speech got sharp and loud and then it was soft and holly; pt welcomes the spiritual care support and presence of this weaving teacher; gave calm words and listening ear; gave assurances of good care for patient to be given; offered to pray and that was accepted; pt was calm and expressed thanks for the visit
--- NOTE | 2021-09-20 15:09 | CASEMGMT ---
RN CM NOTE: Intro role of CM to patient's daughter/CIERRAA, Jeanna, and ALLEN form explained re: Observation status for treatment of stroke-like symptoms. Explained hospitalization will be paid per her insurance policy for Outpatient billing and condition will continue to be evaluated for Inpt necessity. Also let daughter know that [facility] sends paper in the billing packet with their phone number if questions arise. Discussed Pharmacy section of ALLEN form and self administered medication guideline. Jeanna verbalizes understanding and does not have further questions re: [facility]EN form. Form signed, copy made and placed in chart, and original given to Jeanna. Therapy working w/pt at this time. Jeanna aware pt may need SNF and states does not wish for pt to go to [facility]. Her 1st preference is [facility]. ADAMA Connolly, made aware. Jeanna voices concern w/on-going confusion, has several questions, and is interested in talking w/Dr Abreu. Dr Abreu made aware and states will call Jeanna. Jeanna made aware of same. Gianluca MONTOYA RN CM
--- NOTE | 2021-09-20 15:18 | TELEMED_ITS ---
[facility] Telemed has confirmed receipt of a request for visit. This document confirms receipt of the order initiating the consult. To find the results of the consultation, please view the patient's reports for the scanned Telemed Consult.
[2021-09-20] MEDS: 0.9% Normal Saline 1,000 ML 125 ML IV ×2 (15:29→23:10)
--- NOTE | 2021-09-20 15:30 | PN.HOSP_ITS ---
Subjective Subjective Patient seen and examined. She remained lethargic today, though she was able to communicate well. She she did seem to have some slowness with her speech but no overt slurring of her speech. She had no focal weakness and review of systems otherwise negative. Vitals have remained stable and sodium is up to 131 today. Objective Data Objective Data Vital Signs: Vital Signs Temp Pulse Resp BP Pulse Ox 98.5 F 65 12 134/57 H 96 09/20/21 15:27 09/20/21 15:27 09/20/21 15:27 09/20/21 15:27 09/20/21 15:27 Oxygen Delivery Method Room Air Weight: 134 lb 0.657 oz Body Mass Index (BMI) 30.0 Intake & Output: Intake and Output for Last 24 Hours 09/18/21 09/19/21 09/20/21 23:59 23:59 23:59 Intake Total 1217.08 / 1337.08 1480 / 1480 Output Total 250 / 750 1150 / 1150 Balance 967.08 / 587.08 330 / 330 Lab / Micro Data Result Diagrams: 09/20/21 06:20 09/20/21 06:20 Labs: Laboratory Results - last 24 hr 09/19/21 08:58: Serum Osmolality 280 09/19/21 19:00: Urine Osmolality 474, Ur Random Sodium 51 09/20/21 06:20: WBC 8.8, RBC 3.37 L, Hgb 9.8 L, Hct 29.7 L, MCV 88.1, MCH 29.1, MCHC 33.0, RDW Std Deviation 46.2 H, RDW Coeff of Rola 14.5, Plt Count 387, MPV 10.7, Immature Gran % (Auto) 0.500, Neut % (Auto) 73.6 H, Lymph % (Auto) 17.2 L, [place] % (Auto) 7.5, Eos % (Auto) 0.9, Baso % (Auto) 0.3, Absolute Neuts (auto) 6.5, Absolute Lymphs (auto) 1.51, Nucleated RBC % 0 09/20/21 06:20: Sodium 131 L, Potassium 3.8, Chloride 100, Carbon Dioxide 23.0, Anion Gap 8, BUN 7, Creatinine 0.44 L, Estim Creat Clear Calc 42.35, Est GFR (MDRD) Af Amer 175, Est GFR (MDRD) Non-Af 145, BUN/Creatinine Ratio 15.8, Glucose 103, Calcium 8.5 Rhythm Strip Rhythm Strip: Sinus Rhythm Rate: 77 Ectopy: None Physical Exam Const alert and oriented x3 General Appearance: cooperative Orientation / Consciousness: lethargic Exam Limitations: no limitations HEENT head/scalp atraumatic Head and Scalp: normocephalic Mouth: dry mucous membranes Eyes PERRL, EOMs intact bilaterally and conjunctivae normal Neck no lymphadenopathy Resp normal respiratory effort, no retractions, no use of accessory muscles and clear to auscultation bilaterally Cardio regular rate, regular rhythm, S1 normal heart sound, S2 normal heart sound and no murmurs GI normal to inspection, nondistended, normoactive bowel sounds, soft to palpation and non-tender Extremity normal to inspection, full ROM and no clubbing, cyanosis or edema Extremity Narrative: 1+ bipedal pitting edema Peripheral Pulses: Yes pulses 2+ throughout Skin no rashes or lesions noted Neuro CN's II-XII intact bilaterally and moves all extremities Neuro Narrative: patient has slowing of her speech, but no overt dysarthria or slurring of her words. Sensorium / Orientation: awake and alert Psych affect normal Psych Narrative: flat affect Assessment & Plan Assessment/Plan (1) Physical debility: (2) Confusion: (3) Hyponatremia: (4) Dementia: PLAN: #Acute metabolic encephalopathy * patient is still lethargic today, and had slowing of her speech. * she has no focal weakness though * CT of the brain was negative. I ordered an MRI today, but she couldnt get it done due to her RECREATION ENGINEER shunt * will check ammonia level * last TSH (08/06/2021) was 3.57. * sodium level is up to 131 today. continue gentle hydration with fluid * PT./OT on board * fall precautions * consult neurology in light of patient still being confused. * blood cultures pending * URinalysis was negative for any evidence of UTI. * #Debility due to mechanical fall: PT OT on board Fall precautions. #Hyponatremia: Sodium is 123. Will order serum and urine osmolality as well as urine sodium. Been hydrated with IV fluids. #Hypertension: On lisinopril and atenolol #Restless leg syndrome: On primidone #DVT prophylaxis: Lovenox Plan discussed with patient's daughter Jeanna, who is her POA. Charges/Coding Visit Charges Inpatient E&M: 47618 Subs Hosp L2
[2021-09-20 17:06] LABS: Ammonia < 10.0 umol/L (11-32)
[2021-09-20] MEDS: QUEtiapine 25 MG Tablet PO (20:24)
[2021-09-21] VITALS (12 sets, daily range): BP systolic 134–144; BP diastolic 55–79; PULSE 64–82; RESP 12–16; TEMP 36.6–36.9; O2SAT 95–99
[2021-09-21] MEDS: Acetaminophen 500 MG Tablet 1000 MG PO ×3 (05:04→19:50)
[2021-09-21] MEDS: Primidone 50 MG Tablet PO ×3 (05:05→19:50)
--- NOTE | 2021-09-21 06:58 | CASEMGMT ---
Late Entry: Note from 09-20-21 Per RN CM patient's daughter would like for patient to go to [facility] [place] for rehab. SW called Elba at [facility] regarding referral and also faxed over initial information. PT/OT evaluations were not in yet. [facility] may have a bed Friday and/or Friday. Patient does need pre-cert. Cathleen Miguel SOLDERER ASSEMBLY REPAIR DANYEL
--- NOTE | 2021-09-21 07:00 | CASEMGMT ---
ADAMA faxed PT/OT evaluations to [facility]. Cathleen Miguel MALTED MILK SUPERVISOR DANYEL
[2021-09-21 08:17] LABS: Absolute Lymphocyte Count 1.31 X10^3/uL (0.83-4.51); Absolute Neutrophil Count 8.4 X10^3/uL (2.0-7.7); Basophil# 0.03 X10^3/uL; Basophil% 0.3 % (0-1); Eosinophil# 0.07 X10^3/uL; Eosinophils% 0.7 % (0-5); Hematocrit 29.2 % (37-47); Hemoglobin 9.7 g/dL (12.0-15.0); Lymphocyte # 1.31 X10^3/ul (0.83-4.51); Lymphocyte % 12.6 % (19-41); Mean Corp Hgb Conc 33.2 g/dL (32-36); Mean Corpuscular Volume 87.2 fL (81-99); Mean Platelet Vol. 10.1 fl (6.2-12.0); Monocyte# 0.55 X10^3/uL; Monocyte% 5.3 % (0-10); NRBC Flagged by Analyzer 0 % (0-5); Neutrophil # 8.35 X10^3/uL (2.7-7.7); Neutrophil % 80.4 % (47-70); Platelet Count 384 K/mm3 (150-450); RBC Distribution Width CV 14.3 % (11.6-14.6); RBC Distribution Width SD 45.8 fl (35.1-43.9); Red Blood Count 3.35 M/mm3 (4.2-5.4); White Blood Count 10.4 K/mm3 (4.4-11.0)
[2021-09-21 08:37] LABS: Anion Gap 9 (5-15); BUN 6 mg/dL (7-18); BUN/Creat Ratio 14.7 RATIO (10-20); Calcium,Total 8.5 mg/dL (8.5-10.1); Chloride 99 mmol/L (98-107); Creatinine, Serum 0.41 mg/dL (0.55-1.02); EST Glomerular Filtration Rate 159 mL/min (>60); Est Glom Filt Rate - Afr Amer 193 mL/min (>60); Estimated Creatinine Clearance 42.35 ml/min; Glucose 106 mg/dL (74-106); Potassium 3.5 mmol/L (3.5-5.1); Sodium Level 131 mmol/L (136-145)
[2021-09-21] MEDS: Lisinopril 20 MG Tablet PO (08:47)
[2021-09-21] MEDS: Multivitamins,Ther W-Minerals Tablet 1 TABLET PO (08:47)
[2021-09-21] MEDS: Enoxaparin 40 MG/0.4 ML Syringe SC (08:47)
[2021-09-21] MEDS: Pyridoxine HCl 50 MG Tablet 150 MG PO (08:47)
[2021-09-21] MEDS: Atenolol 50 MG Tablet PO (08:47)
[2021-09-21] MEDS: Sertraline 50 MG Tablet PO (08:47)
[2021-09-21] MEDS: Potassium Chloride Oral Tablet 10 MEQ 30 MEQ PO (08:47)
--- NOTE | 2021-09-21 08:57 | CASEMGMT ---
Addendum entered by Cathleen Miguel 09/21/21 09:26: Clinicals faxed to [facility]. Cathleen MONTAÑO Original Note: SW received a message to call patient's daughter Jeanna as she has changed her mind on nursing homes. SW called patient's daughter and she thinks it would be easier to keep patient at [facility]. She asked if she could have a private room at [facility]. SW told her SW can ask. SW asked what she would want to do if [facility] does not have a private room. Jeanna said she still wants [facility]. ADAMA called Federicoko at [facility] and asked if they have any private rooms and they do not. ADAMA told her about the referral for patient and that patient is from the [place]. Arsh said she will check to see if there is anything they can do. ADAMA will fax the clinicals over in the meantime so [facility] can start pre-cert. Cathleen MONTAÑO
--- NOTE | 2021-09-21 11:45 | CASEMGMT ---
ADAMA called Arsh at [facility] and asked if they could take patient. Ar[facility] said they cannot as they are full. ADAMA spoke with patient's daughter Jeanna and let her know this information. Jeanna told ADAMA to make a referral to [facility]. ADAMA spoke with Suzy at [facility] and she will start the pre-cert. ADAMA notified patient's daughter Steph. Plan: d/c to [facility] pending insurance approval. Cathleen Miguel GRINDER SET UP OPERATOR CENTERLESS DANYEL
[2021-09-21] MEDS: 0.9% Normal Saline 1,000 ML 125 ML IV ×2 (15:23→23:41)
[2021-09-21] MEDS: Menthol/Lanolin/Calamine/Znox 113 GM Tube 1 APPLIC TOPICAL ×2 (16:31→19:51)
--- NOTE | 2021-09-21 16:37 | PN.HOSP_ITS ---
Subjective Subjective Patient seen and examined. She was much more alert today. She had no active complaints. Review of systems otherwise negative. Objective Data Objective Data Vital Signs: Vital Signs Temp Pulse Resp BP Pulse Ox 98.3 F 64 15 136/65 H 97 09/21/21 14:48 09/21/21 15:43 09/21/21 14:48 09/21/21 14:48 09/21/21 14:48 Oxygen Delivery Method Room Air Weight: 134 lb 0.657 oz Body Mass Index (BMI) 30.0 Intake & Output: Intake and Output for Last 24 Hours 09/19/21 09/20/21 09/21/21 23:59 23:59 23:59 Intake Total 1217.08 / 1337.08 2840 / 2840 1620 / 1620 Output Total 250 / 750 1150 / 1550 1800 / 1800 Balance 967.08 / 587.08 1690 / 1290 -180 / -180 Lab / Micro Data Result Diagrams: 09/21/21 08:01 09/21/21 08:01 Labs: Laboratory Results - last 24 hr 09/20/21 16:08: Ammonia < 10.0 L 09/21/21 08:01: WBC 10.4, RBC 3.35 L, Hgb 9.7 L, Hct 29.2 L, MCV 87.2, MCH 29.0, MCHC 33.2, RDW Std Deviation 45.8 H, RDW Coeff of Rola 14.3, Plt Count 384, MPV 10.1, Immature Gran % (Auto) 0.700, Neut % (Auto) 80.4 H, Lymph % (Auto) 12.6 L, [place] % (Auto) 5.3, Eos % (Auto) 0.7, Baso % (Auto) 0.3, Absolute Neuts (auto) 8.4 H, Absolute Lymphs (auto) 1.31, Nucleated RBC % 0 09/21/21 08:01: Sodium 131 L, Potassium 3.5, Chloride 99, Carbon Dioxide 23.0, Anion Gap 9, BUN 6 L, Creatinine 0.41 L, Estim Creat Clear Calc 42.35, Est GFR (MDRD) Af Amer 193, Est GFR (MDRD) Non-Af 159, BUN/Creatinine Ratio 14.7, Glucose 106, Calcium 8.5 Rhythm Strip Rhythm Strip: Sinus Rhythm Rate: 77 Ectopy: None
[2021-09-21] MEDS: QUEtiapine 25 MG Tablet PO (19:50)
[2021-09-22] VITALS (9 sets, daily range): BP systolic 133–140; BP diastolic 65–80; PULSE 59–79; RESP 16–18; TEMP 36.3–37.1; O2SAT 96–100
[2021-09-22] MEDS: Primidone 50 MG Tablet PO ×3 (05:16→20:15)
[2021-09-22] MEDS: Acetaminophen 500 MG Tablet 1000 MG PO ×3 (05:16→20:15)
[2021-09-22] MEDS: Multivitamins,Ther W-Minerals Tablet 1 TABLET PO (08:43)
[2021-09-22] MEDS: Potassium Chloride Oral Tablet 10 MEQ 30 MEQ PO (08:43)
[2021-09-22] MEDS: Lisinopril 20 MG Tablet PO (08:44)
[2021-09-22] MEDS: Atenolol 50 MG Tablet PO (08:44)
[2021-09-22] MEDS: Pyridoxine HCl 50 MG Tablet 150 MG PO (08:45)
[2021-09-22] MEDS: Sertraline 50 MG Tablet PO (08:46)
[2021-09-22] MEDS: Menthol/Lanolin/Calamine/Znox 113 GM Tube 1 APPLIC TOPICAL ×4 (08:47→20:30)
[2021-09-22] MEDS: Enoxaparin 40 MG/0.4 ML Syringe SC (08:47)
[2021-09-22 10:06] LABS: Absolute Lymphocyte Count 1.29 X10^3/uL (0.83-4.51); Absolute Neutrophil Count 7.5 X10^3/uL (2.0-7.7); Basophil# 0.03 X10^3/uL; Basophil% 0.3 % (0-1); Eosinophil# 0.11 X10^3/uL; Eosinophils% 1.1 % (0-5); Hematocrit 31.9 % (37-47); Hemoglobin 10.6 g/dL (12.0-15.0); Lymphocyte # 1.29 X10^3/ul (0.83-4.51); Lymphocyte % 13.4 % (19-41); Mean Corp Hgb Conc 33.2 g/dL (32-36); Mean Corpuscular Volume 87.2 fL (81-99); Mean Platelet Vol. 11.2 fl (6.2-12.0); Monocyte# 0.62 X10^3/uL; Monocyte% 6.5 % (0-10); NRBC Flagged by Analyzer 0 % (0-5); Neutrophil # 7.52 X10^3/uL (2.7-7.7); Neutrophil % 78.3 % (47-70); Platelet Count 415 K/mm3 (150-450); RBC Distribution Width CV 14.3 % (11.6-14.6); Red Blood Count 3.66 M/mm3 (4.2-5.4); White Blood Count 9.6 K/mm3 (4.4-11.0)
[2021-09-22 10:10] LABS: Anion Gap 9 (5-15); BUN 4 mg/dL (7-18); BUN/Creat Ratio 9.7 RATIO (10-20); Calcium,Total 8.4 mg/dL (8.5-10.1); Chloride 102 mmol/L (98-107); Creatinine, Serum 0.41 mg/dL (0.55-1.02); EST Glomerular Filtration Rate 156 mL/min (>60); Est Glom Filt Rate - Afr Amer 189 mL/min (>60); Estimated Creatinine Clearance 42.35 ml/min; Glucose 118 mg/dL (74-106); Potassium 3.3 mmol/L (3.5-5.1); Sodium Level 132 mmol/L (136-145)
--- NOTE | 2021-09-22 12:38 | PN.HOSP_ITS ---
Subjective Subjective Patient seen and examined. She has no active complaints today. She was alert and eating breakfast. She has remained hemodynamically stable. His sodium is up to 132 today and potassium was 3.3. Objective Data Objective Data Vital Signs: Vital Signs Temp Pulse Resp BP Pulse Ox 98.8 F 78 18 140/75 H 96 09/22/21 08:40 09/22/21 08:40 09/22/21 08:40 09/22/21 08:40 09/22/21 08:40 Oxygen Delivery Method Room Air Weight: 134 lb 0.657 oz Body Mass Index (BMI) 30.0 Intake & Output: Intake and Output for Last 24 Hours 09/20/21 09/21/21 09/22/21 23:59 23:59 23:59 Intake Total 2840 / 2840 3040 / 3040 1000 / 1000 Output Total 1150 / 1550 2100 / 2250 1000 / 1000 Balance 1690 / 1290 940 / 790 0 / 0 Lab / Micro Data Result Diagrams: 09/22/21 09:02 09/22/21 09:02 Labs: Laboratory Results - last 24 hr 09/22/21 09:02: WBC 9.6, RBC 3.66 L, Hgb 10.6 L, Hct 31.9 L, MCV 87.2, MCH 29.0, MCHC 33.2, RDW Std Deviation 46.0 H, RDW Coeff of Rola 14.3, Plt Count 415, MPV 11.2, Immature Gran % (Auto) 0.400, Neut % (Auto) 78.3 H, Lymph % (Auto) 13.4 L, [place] % (Auto) 6.5, Eos % (Auto) 1.1, Baso % (Auto) 0.3, Absolute Neuts (auto) 7.5, Absolute Lymphs (auto) 1.29, Nucleated RBC % 0 09/22/21 09:02: Sodium 132 L, Potassium 3.3 L, Chloride 102, Carbon Dioxide 21.0, Anion Gap 9, BUN 4 L, Creatinine 0.41 L, Estim Creat Clear Calc 42.35, Est GFR (MDRD) Af Amer 189, Est GFR (MDRD) Non-Af 156, BUN/Creatinine Ratio 9.7 L, Glucose 118 H, Calcium 8.4 L Rhythm Strip Rhythm Strip: Sinus Rhythm Rate: 77 Ectopy: None Physical Exam Const alert, oriented x3 and no apparent distress General Appearance: cooperative Exam Limitations: no limitations HEENT normocephalic, head/scalp atraumatic, hearing grossly normal bilaterally and moist oral mucous membranes Head and Scalp: normocephalic Eyes PERRL, EOMs intact bilaterally and conjunctivae normal Neck no lymphadenopathy, supple and no JVD Resp normal respiratory effort, no retractions, no use of accessory muscles and clear to auscultation bilaterally Cardio regular rate, regular rhythm, S1 normal heart sound, S2 normal heart sound and no murmurs GI normal to inspection, nondistended, normoactive bowel sounds, soft to palpation, non-tender, non-distended and hepatosplenomegaly Extremity normal to inspection and full ROM Extremity Narrative: 1+ bipedal pitting edema Peripheral Pulses: Yes pulses 2+ throughout Skin no rashes or lesions noted Neuro oriented x3, CN's II-XII intact bilaterally, moves all extremities and no focal motor deficits Sensorium / Orientation: awake and alert Psych affect normal Assessment & Plan Assessment/Plan (1) Physical debility: (2) Confusion: (3) Hyponatremia: (4) Dementia: PLAN: #Acute metabolic encephalopathy * patient much more alert and communicative today. * ammonia level was negative * symptoms likely due to hyponatremia. * PT/OT on board.Fall precutions * neurology reviewed patient and thinks her symptoms were likely due to hyponatremia * sodium is up to 132 today, which is her baseline. * * #Debility due to mechanical fall: PT OT on board Fall precautions. #Hyponatremia: Sodium has improved and is up to 132 today. This is around her baseline. Will monitor. #Hypertension: On lisinopril and atenolol #Restless leg syndrome: On primidone #DVT prophylaxis: Lovenox Disposition: For discharge back to SNF once medically stable. Patient needs pre-CERT to go back so will have to be here till Friday. Charges/Coding Visit Charges Inpatient E&M: 99811 Subs Hosp L2
[2021-09-22] MEDS: Potassium Chloride Oral Tablet 20 MEQ 40 MEQ PO (18:10)
[2021-09-22] MEDS: QUEtiapine 25 MG Tablet PO (20:16)
[2021-09-23] VITALS (11 sets, daily range): BP systolic 115–179; BP diastolic 57–81; PULSE 48–79; RESP 16; TEMP 36.1–36.8; O2SAT 95–98
[2021-09-23] MEDS: Primidone 50 MG Tablet PO ×3 (06:23→21:34)
[2021-09-23] MEDS: Acetaminophen 500 MG Tablet 1000 MG PO ×3 (06:23→21:34)
[2021-09-23 06:52] LABS: Absolute Lymphocyte Count 1.31 X10^3/uL (0.83-4.51); Absolute Neutrophil Count 8.7 X10^3/uL (2.0-7.7); Basophil# 0.03 X10^3/uL; Basophil% 0.3 % (0-1); Eosinophil# 0.19 X10^3/uL; Eosinophils% 1.7 % (0-5); Hematocrit 32.4 % (37-47); Hemoglobin 10.7 g/dL (12.0-15.0); Lymphocyte # 1.31 X10^3/ul (0.83-4.51); Lymphocyte % 11.9 % (19-41); Mean Corpuscular Hgb 28.7 pg (27.0-32.0); Mean Corpuscular Volume 86.9 fL (81-99); Mean Platelet Vol. 10.7 fl (6.2-12.0); Monocyte# 0.76 X10^3/uL; Monocyte% 6.9 % (0-10); NRBC Flagged by Analyzer 0 % (0-5); Neutrophil % 78.8 % (47-70); Platelet Count 412 K/mm3 (150-450); RBC Distribution Width CV 14.4 % (11.6-14.6); Red Blood Count 3.73 M/mm3 (4.2-5.4)
[2021-09-23 07:12] LABS: Anion Gap 8 (5-15); BUN 8 mg/dL (7-18); BUN/Creat Ratio 16.6 RATIO (10-20); Calcium,Total 8.8 mg/dL (8.5-10.1); Chloride 96 mmol/L (98-107); Creatinine, Serum 0.48 mg/dL (0.55-1.02); EST Glomerular Filtration Rate 132 mL/min (>60); Est Glom Filt Rate - Afr Amer 159 mL/min (>60); Estimated Creatinine Clearance 42.35 ml/min; Glucose 106 mg/dL (74-106); Potassium 3.8 mmol/L (3.5-5.1); Sodium Level 128 mmol/L (136-145)
[2021-09-23] MEDS: Multivitamins,Ther W-Minerals Tablet 1 TABLET PO (09:52)
[2021-09-23] MEDS: Enoxaparin 40 MG/0.4 ML Syringe SC (09:52)
[2021-09-23] MEDS: Potassium Chloride Oral Tablet 10 MEQ 30 MEQ PO (09:52)
[2021-09-23] MEDS: Menthol/Lanolin/Calamine/Znox 113 GM Tube 1 APPLIC TOPICAL ×4 (09:53→21:36)
[2021-09-23] MEDS: Sertraline 50 MG Tablet PO (09:53)
[2021-09-23] MEDS: Atenolol 50 MG Tablet PO (09:54)
[2021-09-23] MEDS: Lisinopril 20 MG Tablet PO (09:54)
[2021-09-23] MEDS: Pyridoxine HCl 50 MG Tablet 150 MG PO (09:55)
--- NOTE | 2021-09-23 13:09 | PN.HOSP_ITS ---
Subjective Subjective Patient seen and examined. She had no active complaints today. Review of systems otherwise negative. Sodium is down to 128. She has made hemodynamically stable. Objective Data Objective Data Vital Signs: Vital Signs Temp Pulse Resp BP Pulse Ox 97.9 F 69 16 141/57 H 98 09/23/21 08:15 09/23/21 11:47 09/23/21 08:15 09/23/21 08:15 09/23/21 08:15 Oxygen Delivery Method Room Air Weight: 134 lb 0.657 oz Body Mass Index (BMI) 30.0 Intake & Output: Intake and Output for Last 24 Hours 09/21/21 09/22/21 09/23/21 23:59 23:59 23:59 Intake Total 3040 / 3040 1240 / 1240 Output Total 2100 / 2250 1400 / 1400 875 / 875 Balance 940 / 790 -160 / -160 -875 / -875 Lab / Micro Data Result Diagrams: 09/23/21 06:12 09/23/21 06:12 Labs: Laboratory Results - last 24 hr 09/23/21 06:12: WBC 11.0, RBC 3.73 L, Hgb 10.7 L, Hct 32.4 L, MCV 86.9, MCH 28.7, MCHC 33.0, RDW Std Deviation 46.0 H, RDW Coeff of Rola 14.4, Plt Count 412, MPV 10.7, Immature Gran % (Auto) 0.400, Neut % (Auto) 78.8 H, Lymph % (Auto) 11.9 L, [place] % (Auto) 6.9, Eos % (Auto) 1.7, Baso % (Auto) 0.3, Absolute Neuts (auto) 8.7 H, Absolute Lymphs (auto) 1.31, Nucleated RBC % 0 09/23/21 06:12: Sodium 128 L, Potassium 3.8, Chloride 96 L, Carbon Dioxide 24.0, Anion Gap 8, BUN 8, Creatinine 0.48 L, Estim Creat Clear Calc 42.35, Est GFR (MDRD) Af Amer 159, Est GFR (MDRD) Non-Af 132, BUN/Creatinine Ratio 16.6, Glucose 106, Calcium 8.8 Micro: Microbiology 09/19/21 16:58 Blood Culture (Wb) - Anticubital Left Blood Culture - Preliminary No growth in 48 hours. 09/19/21 16:54 Blood Culture (Wb) - Left Hand Blood Culture - Preliminary No growth in 48 hours. Rhythm Strip Rhythm Strip: Sinus Rhythm Rate: 77 Ectopy: None Physical Exam Const alert, oriented x3 and no apparent distress General Appearance: cooperative Exam Limitations: no limitations HEENT normocephalic, head/scalp atraumatic, hearing grossly normal bilaterally and moist oral mucous membranes Head and Scalp: normocephalic Eyes PERRL, EOMs intact bilaterally and conjunctivae normal Neck no lymphadenopathy, supple and no JVD Resp normal respiratory effort, no retractions, no use of accessory muscles and clear to auscultation bilaterally Cardio regular rate, regular rhythm, S1 normal heart sound, S2 normal heart sound and no murmurs GI normal to inspection, nondistended, normoactive bowel sounds, soft to palpation, non-tender, non-distended and hepatosplenomegaly Extremity normal to inspection and full ROM Extremity Narrative: 1+ bipedal pitting edema Skin no rashes or lesions noted Neuro oriented x3, CN's II-XII intact bilaterally, moves all extremities and no focal motor deficits Sensorium / Orientation: awake and alert Psych affect normal Assessment & Plan Assessment/Plan (1) Physical debility: (2) Confusion: (3) Hyponatremia: (4) Dementia: PLAN: #Acute metabolic encephalopathy * symptoms likely due to hyponatremia. Improved markedly * PT/OT on board.Fall precutions * neurology reviewed patient and thinks her symptoms were likely due to hyponatremia * sodium is back down to 128 today. Will consult nephrology due to patient's refractory hyponatremia * * #Debility due to mechanical fall: PT OT on board Fall precautions. #Hyponatremia: Sodium is back down to 128 today. Nephrology consulted as sodium Fluctuating. #Hypertension: On lisinopril and atenolol #Restless leg syndrome: On primidone #DVT prophylaxis: Lovenox Disposition: Awaiting DC to SNF. Patient needs pre-CERT to go back so will have to be here till Friday. Charges/Coding Visit Charges Inpatient E&M: 88865 Subs Hosp L2
[2021-09-23] MEDS: QUEtiapine 25 MG Tablet PO (21:34)
[2021-09-24] VITALS (7 sets, daily range): BP systolic 127–143; BP diastolic 66–73; PULSE 59–67; RESP 14–17; TEMP 36.4–37; O2SAT 95–96
[2021-09-24 06:01] LABS: Absolute Lymphocyte Count 1.36 X10^3/uL (0.83-4.51); Absolute Neutrophil Count 7.3 X10^3/uL (2.0-7.7); Basophil# 0.03 X10^3/uL; Basophil% 0.3 % (0-1); Eosinophil# 0.16 X10^3/uL; Eosinophils% 1.7 % (0-5); Hematocrit 33.7 % (37-47); Hemoglobin 11.4 g/dL (12.0-15.0); Lymphocyte # 1.36 X10^3/ul (0.83-4.51); Lymphocyte % 14.2 % (19-41); Mean Corp Hgb Conc 33.8 g/dL (32-36); Mean Corpuscular Hgb 29.3 pg (27.0-32.0); Mean Corpuscular Volume 86.6 fL (81-99); Mean Platelet Vol. 10.5 fl (6.2-12.0); Monocyte# 0.68 X10^3/uL; Monocyte% 7.1 % (0-10); NRBC Flagged by Analyzer 0 % (0-5); Neutrophil # 7.31 X10^3/uL (2.7-7.7); Neutrophil % 76.1 % (47-70); Platelet Count 423 K/mm3 (150-450); RBC Distribution Width CV 14.3 % (11.6-14.6); RBC Distribution Width SD 45.1 fl (35.1-43.9); Red Blood Count 3.89 M/mm3 (4.2-5.4); White Blood Count 9.6 K/mm3 (4.4-11.0)
[2021-09-24] MEDS: Acetaminophen 500 MG Tablet 1000 MG PO ×3 (06:25→21:10)
[2021-09-24] MEDS: Primidone 50 MG Tablet PO ×3 (06:25→21:11)
[2021-09-24 06:46] LABS: Anion Gap 9 (5-15); BUN 9 mg/dL (7-18); BUN/Creat Ratio 18.6 RATIO (10-20); Chloride 94 mmol/L (98-107); Creatinine, Serum 0.48 mg/dL (0.55-1.02); EST Glomerular Filtration Rate 131 mL/min (>60); Est Glom Filt Rate - Afr Amer 158 mL/min (>60); Estimated Creatinine Clearance 42.35 ml/min; Glucose 106 mg/dL (74-106); Potassium 3.7 mmol/L (3.5-5.1); Sodium Level 128 mmol/L (136-145)
--- NOTE | 2021-09-24 08:58 | CASEMGMT ---
Updates were faxed to [facility] as we are still waiting on pre-cert. Plan: [facility] pending pre-cert. Cathleen Miguel OWNER CONSULTING ENGINEER CLOTH BLEACHING RANGE OPERATOR CHIEF
[2021-09-24] MEDS: Enoxaparin 40 MG/0.4 ML Syringe SC (09:06)
[2021-09-24] MEDS: Pyridoxine HCl 50 MG Tablet 150 MG PO (09:07)
[2021-09-24] MEDS: Potassium Chloride Oral Tablet 10 MEQ 30 MEQ PO (09:07)
[2021-09-24] MEDS: Lisinopril 20 MG Tablet PO (09:08)
[2021-09-24] MEDS: Multivitamins,Ther W-Minerals Tablet 1 TABLET PO (09:08)
[2021-09-24] MEDS: Atenolol 50 MG Tablet PO (09:08)
[2021-09-24] MEDS: Sertraline 50 MG Tablet PO (09:08)
[2021-09-24] MEDS: Menthol/Lanolin/Calamine/Znox 113 GM Tube 1 APPLIC TOPICAL ×4 (09:12→21:10)
--- NOTE | 2021-09-24 11:15 | PCM.CONS.R ---
Assessment & Plan Assessment/Plan (1) Hyponatremia: PLAN: Admitted with severe hyponatremia. Improved to more than 130 and is lower again at 128. She does not have any signs of volume overload or volume depletion. Urine sodium is more than 20 and urine osmolality is more than 300. 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 I will check a TSH. Low suspicion for [place]'s. She is on Zoloft and Seroquel which can potentially cause SIADH. In the past she had hyponatremia on multiple occasions. 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 No signs of volume overload. BNP is 27 on admission. Will add low-dose salt tablets. Discussed with hospitalist HPI Consult Data Date of Consult: 09/24/21 HPI Narrative HPI Narrative: GAGE CONNOR, is a 81 F who presents to the hospital with altered mental status. Nephrology consulted for hyponatremia. She initially presented with severe hyponatremia of less than 125, improved significantly next day. She is lower again at 128 today. No significant lower extremity edema. Patient is somewhat slow to respond. Does not offer any complaints. No significant edema. She states appetite has been good. Doesn't look like she is drinking a lot of liquids. No breathing difficulties. [facility] Medical History Diabetes Hyperlipidemia Hypertension Parkinson's disease Home Medications acetaminophen 2 tab PO TID 09/03/17 [History Last Taken 09/02/17] atenolol 50 mg PO DAILY 09/03/17 [History Last Taken 11/13/17 07:00] hydrochlorothiazide 12.5 mg PO QODAY 09/03/17 [History Last Taken 09/01/17] lisinopril 20 mg PO DAILY 09/03/17 [History Last Taken 11/13/17 07:00] multivitamin with folic acid [Thera] 1 tab PO DAILY 09/03/17 [History Last Taken 09/02/17] ondansetron HCl [Zofran] 4 mg PO Q8H PRN 09/03/17 [History Last Taken Unknown] oxycodone [Roxicodone] 5 mg PO Q4H PRN 09/03/17 [History Last Taken Unknown] polyethylene glycol 3350 17 g PO DAILY PRN 09/03/17 [History Last Taken Unknown] primidone 50 mg PO TID 09/03/17 [History Last Taken 09/02/17] pyridoxine (vitamin B6) 150 mg PO DAILY 09/03/17 [History Last Taken 09/02/17] sertraline [Zoloft] 50 mg PO DAILY 09/03/17 [History Last Taken 09/02/17] hyoscyamine sulfate 0.125 mg SUBLINGUAL Q12H PRN PRN 11/11/17 [History Last Taken Unknown] potassium chloride [Klor-Con M15] 30 meq PO DAILY 11/11/17 [History Last Taken Unknown] quetiapine [Seroquel] 25 mg PO QHS 04/10/21 [History Last Taken Unknown] Allergy/AdvReac Type Severity Reaction Status Date / Time Sulfa (Sulfonamide Allergy Unknown Verified 09/19/21 09:00 Antibiotics) peanut AdvReac Other Verified 09/19/21 09:00 Surgical History 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 Social History Smoking Status: Never smoker ROS ROS Narrative Negative except history Physical Exam Narrative no obvious distress no pallor no icterus no JVD s1s2 no murmurs lungs clear abdomen soft no organomegaly no edema no cyanosis Lab / Micro Data Result Diagrams: 09/24/21 05:30 09/24/21 05:39 Labs: Laboratory Results - last 24 hr 09/24/21 05:30: WBC 9.6, RBC 3.89 L, Hgb 11.4 L, Hct 33.7 L, MCV 86.6, MCH 29.3, MCHC 33.8, RDW Std Deviation 45.1 H, RDW Coeff of Rola 14.3, Plt Count 423, MPV 10.5, Immature Gran % (Auto) 0.600, Neut % (Auto) 76.1 H, Lymph % (Auto) 14.2 L, [place] % (Auto) 7.1, Eos % (Auto) 1.7, Baso % (Auto) 0.3, Absolute Neuts (auto) 7.3, Absolute Lymphs (auto) 1.36, Nucleated RBC % 0 09/24/21 05:39: Sodium 128 L, Potassium 3.7, Chloride 94 L, Carbon Dioxide 25.0, Anion Gap 9, BUN 9, Creatinine 0.48 L, Estim Creat Clear Calc 42.35, Est GFR (MDRD) Af Amer 158, Est GFR (MDRD) Non-Af 131, BUN/Creatinine Ratio 18.6, Glucose 106, Calcium 9.0 Rhythm Strip Rhythm Strip: Sinus Rhythm Rate: 77 Ectopy: None
[2021-09-24] MEDS: Sodium Chloride 1 GM Tablet PO ×2 (13:32→21:11)
--- NOTE | 2021-09-24 15:09 | CASEMGMT ---
ADAMA received a call from Elba with [facility] and patient was approved. ADAMA notified physician and he will discharge patient tomorrow due to low sodium levels. ADAMA called Elba at [facility] and let her know this information. She will notify insurance. Plan: d/c to [facility] when ready. Insurance has approved. Cathleen Miguel PULMONARY NURSE PRACTITIONER DANYEL
--- NOTE | 2021-09-24 15:17 | NURSING ---
This RN reviewed SN charting
--- NOTE | 2021-09-24 16:36 | PCM.PN.HOSP ---
Subjective Subjective Patient has chronic speech problem, stuttering. She had 1 large bowel movement, soft, not liquid. States mild cramping abdominal. Her stool sample does not merit evaluation for C. difficile. No leukocytosis or fever. Sanforizing Machine Operator consulted for hyponatremia and I discussed with him. Objective Data Objective Data Vital Signs: Vital Signs Temp Pulse Resp BP Pulse Ox 98.3 F 65 14 134/66 H 96 09/24/21 10:27 09/24/21 11:02 09/24/21 10:27 09/24/21 10:27 09/24/21 10:27 Oxygen Delivery Method Room Air Weight: 134 lb 0.657 oz Body Mass Index (BMI) 30.0 Intake & Output: Intake and Output for Last 24 Hours 09/22/21 09/23/21 09/24/21 23:59 23:59 23:59 Intake Total 1240 / 1240 500 / 500 Output Total 1400 / 1400 1425 / 1425 Balance -160 / -160 -925 / -925 Lab / Micro Data Result Diagrams: 09/24/21 05:30 09/24/21 05:39 Labs: Laboratory Results - last 24 hr 09/24/21 05:30: WBC 9.6, RBC 3.89 L, Hgb 11.4 L, Hct 33.7 L, MCV 86.6, MCH 29.3, MCHC 33.8, RDW Std Deviation 45.1 H, RDW Coeff of Rola 14.3, Plt Count 423, MPV 10.5, Immature Gran % (Auto) 0.600, Neut % (Auto) 76.1 H, Lymph % (Auto) 14.2 L, [place] % (Auto) 7.1, Eos % (Auto) 1.7, Baso % (Auto) 0.3, Absolute Neuts (auto) 7.3, Absolute Lymphs (auto) 1.36, Nucleated RBC % 0 09/24/21 05:39: Sodium 128 L, Potassium 3.7, Chloride 94 L, Carbon Dioxide 25.0, Anion Gap 9, BUN 9, Creatinine 0.48 L, Estim Creat Clear Calc 42.35, Est GFR (MDRD) Af Amer 158, Est GFR (MDRD) Non-Af 131, BUN/Creatinine Ratio 18.6, Glucose 106, Calcium 9.0 Micro: Microbiology 09/19/21 16:58 Blood Culture (Wb) - Anticubital Left Blood Culture - Preliminary No growth in 48 hours. 09/19/21 16:54 Blood Culture (Wb) - Left Hand Blood Culture - Preliminary No growth in 48 hours. Rhythm Strip Rhythm Strip: Sinus Rhythm Rate: 77 Ectopy: None Physical Exam Narrative General: Alert, Oriented x3, Cooperative HEENT: Atraumatic, PERRLA, EOMI, Normocephalic Oral: No Gingival or Mucosal Lesions/ Ulcerations Neck: Supple, No JVD, Negative Carotid Bruits Lungs: Air entry diminished in bilateral lung bases. No crepitation/rhonchi Cardiovascular: Sinus rhythm, heart rate in 60s, Normal S1, Normal S2, No murmurs Abdomen: Bowel Sounds Present, Soft, Non Tender, Non-Distended : No renal angle tenderness. No suprapubic tenderness. Extremities: No edema, Capillary Refill Less than 3 Seconds Skin: No rashes, No breakdown Musculoskeletal: No Tenderness to Palpation of Joints or Extremities Neurological: Cranial nerves II-XII grossly intact, DTR 2+/4 chronic vocal tic/stuttering Psych/Mental Status: Flat affect. Assessment & Plan Assessment/Plan (1) Physical debility: (2) Confusion: (3) Hyponatremia: (4) Dementia: PLAN: #Acute metabolic encephalopathy probably related to hyponatremia: Patient is being admitted in PCU. Her sodium is chronically low improved more than 130 and then again 128. Patient on Zoloft and Seroquel which may be potential cause for SIADH. Urine sodium is elevated. Urine sodium 51, urine osmolarity 474. Serum ammonia less than 10 the public relations associate started low-dose salt tablets. Patient does not have fluid overload or lower extremity edema. Serum cortisol and TSH for tomorrow a.m. #Debility due to mechanical fall: PT OT on board Fall precautions. #Hyponatremia: As mentioned above. #Hypertension: On lisinopril and atenolol #Restless leg syndrome: On primidone #DVT prophylaxis: Lovenox Disposition:Discussed with rehabilitation caseworker and healthcare social worker. They approved for [facility] possible discharge tomorrow once sodium level improved and follow-up TSH and cortisol Charges/Coding Visit Charges Inpatient E&M: 72992 Subs Hosp L2
[2021-09-24] MEDS: QUEtiapine 25 MG Tablet PO (21:11)
[2021-09-25 03:00] VITALS: PULSE 60
[2021-09-25 03:10] VITALS: BP 133/72; PULSE 60; RESP 17; TEMP 36.6; O2SAT 97
[2021-09-25] MEDS: Acetaminophen 500 MG Tablet 1000 MG PO ×2 (06:16→13:40)
[2021-09-25] MEDS: Sodium Chloride 1 GM Tablet PO ×2 (06:17→13:40)
[2021-09-25] MEDS: Primidone 50 MG Tablet PO ×2 (06:17→13:40)
[2021-09-25 06:59] VITALS: PULSE 66
[2021-09-25 07:59] VITALS: BP 143/67; PULSE 71; RESP 16; TEMP 37.1; O2SAT 94
[2021-09-25] MEDS: Pyridoxine HCl 50 MG Tablet 150 MG PO (08:01)
[2021-09-25] MEDS: Sertraline 50 MG Tablet PO (08:01)
[2021-09-25] MEDS: Potassium Chloride Oral Tablet 10 MEQ 30 MEQ PO (08:01)
[2021-09-25] MEDS: Lisinopril 20 MG Tablet PO (08:01)
[2021-09-25] MEDS: Atenolol 50 MG Tablet PO (08:01)
[2021-09-25] MEDS: Enoxaparin 40 MG/0.4 ML Syringe SC (08:02)
[2021-09-25] MEDS: Multivitamins,Ther W-Minerals Tablet 1 TABLET PO (08:02)
[2021-09-25] MEDS: Menthol/Lanolin/Calamine/Znox 113 GM Tube 1 APPLIC TOPICAL ×2 (08:02→13:32)
[2021-09-25 08:03] LABS: Absolute Lymphocyte Count 1.43 X10^3/uL (0.83-4.51); Absolute Neutrophil Count 7.6 X10^3/uL (2.0-7.7); Basophil# 0.03 X10^3/uL; Basophil% 0.3 % (0-1); Eosinophil# 0.15 X10^3/uL; Eosinophils% 1.5 % (0-5); Hematocrit 34.8 % (37-47); Hemoglobin 11.6 g/dL (12.0-15.0); Lymphocyte # 1.43 X10^3/ul (0.83-4.51); Lymphocyte % 14.2 % (19-41); Mean Corp Hgb Conc 33.3 g/dL (32-36); Mean Platelet Vol. 10.5 fl (6.2-12.0); Monocyte# 0.78 X10^3/uL; Monocyte% 7.7 % (0-10); NRBC Flagged by Analyzer 0 % (0-5); Neutrophil % 75.5 % (47-70); Platelet Count 430 K/mm3 (150-450); RBC Distribution Width CV 14.6 % (11.6-14.6); RBC Distribution Width SD 46.6 fl (35.1-43.9); White Blood Count 10.1 K/mm3 (4.4-11.0)
[2021-09-25 08:36] LABS: Anion Gap 10 (5-15); BUN 12 mg/dL (7-18); BUN/Creat Ratio 20.8 RATIO (10-20); Calcium,Total 9.1 mg/dL (8.5-10.1); Chloride 96 mmol/L (98-107); Creatinine, Serum 0.58 mg/dL (0.55-1.02); EST Glomerular Filtration Rate 107 mL/min (>60); Est Glom Filt Rate - Afr Amer 129 mL/min (>60); Estimated Creatinine Clearance 42.35 ml/min; Glucose 99 mg/dL (74-106); Potassium 4.1 mmol/L (3.5-5.1); Sodium Level 127 mmol/L (136-145); Thyroid Stim Hormone (TSH) 9.41 uIU/mL (0.358-3.74)
--- NOTE | 2021-09-25 10:56 | PCM.TXEXTCAR ---
Diet 09/19/21 13:22 Diet: Cardiac - Heart Healthy Food consistency:: Regular Liquid Consistency:: Regular/Thin Is pt able to select menu?: Yes Problem/Diagnosis (1) Physical debility: Status: Acute (2) Confusion: Status: Acute Comment: Acute on chronic (3) Hyponatremia: Status: Acute (4) Dementia: Status: Suspected Allergies/Procedures Done in Hospital Allergies Sulfa (Sulfonamide Antibiotics) Allergy (Verified 09/19/21 09:00) Unknown peanut Adverse Reaction (Verified 09/19/21 09:00) Other Type of Care/Length of Stay Estimated LOS: Convalescent Care Less Than 30 days Type of Care Needed: Skilled Rehab Potential: Good Prognosis: Good Additional Orders/Day of Discharge Day of Discharge: 09/25/21 Discharge Plan Admission Admit Date/Time: 09/19/21 11:11 Primary Reason for Your Visit: Hypotonic, hypovolemic hyponatremia Attending Provider: Carlo Iyer Primary Care Provider: Karli Thayer Consulting Providers: Joel Avila Discharge Orders/Prescriptions Prescriptions: New sodium chloride 1 gram Tablet 1 g PO TID Qty: 60 RF: 0 menthol-zinc oxide [Calmoseptine] 0.44-20.6 % Ointment 1 applic topical 4X/DAY Qty: 0 RF: 0 Continued primidone 50 MG tablet 50 mg PO TID RF: 0 polyethylene glycol 3350 17 GM powder in packet 17 g PO DAILY PRN (Reason: Constipation) RF: 0 lisinopril 20 MG tablet 20 mg PO DAILY RF: 0 ondansetron HCl [Zofran] 4 MG tablet 4 mg PO Q8H PRN (Reason: Nausea) RF: 0 acetaminophen 500 MG tablet 2 tab PO TID RF: 0 pyridoxine (vitamin B6) 50 MG tablet 150 mg PO DAILY RF: 0 sertraline [Zoloft] 50 MG tablet 50 mg PO DAILY RF: 0 atenolol 50 MG tablet 50 mg PO DAILY RF: 0 multivitamin with folic acid [Thera] 1 TABLET tablet 1 tab PO DAILY RF: 0 hyoscyamine sulfate 0.125 MG tablet, sublingual 0.125 mg sublingual Q12H PRN PRN (Reason: stomach cramps) RF: 0 quetiapine [Seroquel] 25 mg tablet 25 mg PO QHS RF: 0 potassium chloride [Klor-Con M15] 15 MEQ tablet,ER particles/crystals 30 meq PO DAILY Qty: 0 RF: 0 Discontinued hydrochlorothiazide 25 MG tablet 12.5 mg PO QODAY RF: 0 oxycodone [Roxicodone] 5 MG tablet 5 mg PO Q4H PRN (Reason: Moderate Pain (4-5/10)) RF: 0 Referrals / Follow Up: Karli Thayer DO [Primary Care Provider] - In 1 Week Joel Avila MD [STAFF PHYSICIAN] - Within 2 Weeks (with serum Na) Disposition Disposition (needs filled in before D/C Order can be placed): Senior Living Facility
[2021-09-25 10:59] VITALS: PULSE 57
[2021-09-25 11:08] LABS: T4 Free Direct 0.79 ng/dL (0.76-1.46)
--- NOTE | 2021-09-25 11:28 | PCM.DC.SUM ---
Providers Date of Admission: 09/19/21 Primary Care Physician: Dr. Karli Thayer, Consultations 09/23/21 07:24 Consult: Nephrology Routine Consulting Provider: Joel Avila Reason for Consult: refractory hyponatremia EMERGENT Consult: No MD Notified: Yes Date Notified: 09/23/21 Time Notified: 07:24 Method of Notification: Text Reason For Visit: STROKE LIKE SYMPTOMS Diagnosis Discharge Diagnosis (1) Physical debility: Status: Acute Code(s): R53.81 - Other malaise (2) Confusion: Status: Acute Code(s): R41.0 - Disorientation, unspecified (3) Hyponatremia: Status: Acute Code(s): E87.1 - Hypo-osmolality and hyponatremia (4) Dementia: Status: Suspected Code(s): F03.90 - Unspecified dementia without behavioral disturbance Medications at Discharge Home Medications acetaminophen 2 tab PO TID 09/03/17 atenolol 50 mg PO DAILY 09/03/17 lisinopril 20 mg PO DAILY 09/03/17 multivitamin with folic acid [Thera] 1 tab PO DAILY 09/03/17 ondansetron HCl [Zofran] 4 mg PO Q8H PRN 09/03/17 polyethylene glycol 3350 17 g PO DAILY PRN 09/03/17 primidone 50 mg PO TID 09/03/17 pyridoxine (vitamin B6) 150 mg PO DAILY 09/03/17 sertraline [Zoloft] 50 mg PO DAILY 09/03/17 hyoscyamine sulfate 0.125 mg SUBLINGUAL Q12H PRN PRN 11/11/17 quetiapine [Seroquel] 25 mg PO QHS 04/10/21 menthol-zinc oxide [Calmoseptine] 1 applic TOPICAL 4X/DAY #0 g 09/25/21 potassium chloride [Klor-Con M15] 30 meq PO DAILY #0 tab 09/25/21 sodium chloride 1 g PO TID #60 tab 09/25/21 Hospital Course Summary of Care Provided Hospital Course: This 81-year-old female was admitted from SNF through ED for altered mental status, confusion, fall, weakness concerning for a stroke. She was admitted in PCU. 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 #Acute metabolic encephalopathy probably related to hyponatremia: Her sodium is chronically low improved more than 130 and then again 128. Her sodium is low since 2016. Patient on Zoloft and Seroquel which may be potential cause for SIADH. Urine sodium is elevated. Urine sodium 51, urine osmolarity 474. Serum ammonia less than 10 the central office operator started low-dose salt tablets. Patient does not have fluid overload or lower extremity edema. Serum cortisol level 21.6, TSH 9.4 but free T4 normal. 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 The central office operator Dr. Avila also talked to the patient's daughter. I said she will need thyroid function test TSH and free T4 after 1 month to further investigate. She might have subclinical hypothyroidism or recovery stage of euthyroid sick syndrome. Patient diminished statuary painter for sodium tablet 1 g p.o. 3 times daily for 20 days and follow-up with Dr. Avila in 2 weeks #Debility due to mechanical fall: PT and OT on board Fall precautions. #Hyponatremia: As mentioned above. #Hypertension: On lisinopril and atenolol #Restless leg syndrome: On primidone #DVT prophylaxis: Lovenox Discharge medication reconciliation done. Discharge follow-up instructions completed. Discharge process discussed with the patient and all questions were answered to patient's satisfaction. Discharge to [facility] Total time spent, exact 35 minutes on discharge meds reconciliation, examination, coordination of care with nurses and ancillary staff, review of imaging and blood test and discussion with the patient on follow-up instructions Physical Exam Narrative General: Alert, Oriented x3, Cooperative HEENT: Chronic speech stuttering. Atraumatic, PERRLA, EOMI, Normocephalic Oral: No Gingival or Mucosal Lesions/ Ulcerations Neck: Supple, No JVD, Negative Carotid Bruits Lungs: Air entry diminished in bilateral lung bases. No crepitation/rhonchi Cardiovascular: Sinus rhythm, heart rate in 60s, Normal S1, Normal S2, No murmurs Abdomen: Bowel Sounds Present, Soft, Non Tender, Non-Distended : No renal angle tenderness. No suprapubic tenderness. Extremities: No edema, Capillary Refill Less than 3 Seconds Skin: No rashes, No breakdown Musculoskeletal: No Tenderness to Palpation of Joints or Extremities Neurological: Cranial nerves II-XII grossly intact, DTR 2+/4 chronic vocal tic/stuttering Psych/Mental Status: Flat affect. Weight / BMI Weight Weight: 134 lb 0.657 oz Body Mass Index (BMI) 30.0 ABG / Lab / Microbiology Data Result Diagrams: 09/25/21 06:55 09/25/21 06:55 Laboratory: Laboratory Results - last 24 hr 09/25/21 06:55: WBC 10.1, RBC 4.00 L, Hgb 11.6 L, Hct 34.8 L, MCV 87.0, MCH 29.0, MCHC 33.3, RDW Std Deviation 46.6 H, RDW Coeff of Rola 14.6, Plt Count 430, MPV 10.5, Immature Gran % (Auto) 0.800, Neut % (Auto) 75.5 H, Lymph % (Auto) 14.2 L, [place] % (Auto) 7.7, Eos % (Auto) 1.5, Baso % (Auto) 0.3, Absolute Neuts (auto) 7.6, Absolute Lymphs (auto) 1.43, Nucleated RBC % 0 09/25/21 06:55: Sodium 127 L, Potassium 4.1, Chloride 96 L, Carbon Dioxide 21.0, Anion Gap 10, BUN 12, Creatinine 0.58, Estim Creat Clear Calc 42.35, Est GFR (MDRD) Af Amer 129, Est GFR (MDRD) Non-Af 107, BUN/Creatinine Ratio 20.8 H, Glucose 99, Calcium 9.1, TSH 9.41 H 09/25/21 06:55: Cortisol 21.60 09/25/21 06:55: Free T4 0.79 Microbiology: Microbiology 09/19/21 16:58 Blood Culture (Wb) - Anticubital Left Blood Culture - Final No growth in 5 days. 09/19/21 16:54 Blood Culture (Wb) - Left Hand Blood Culture - Final No growth in 5 days. Meaningful Use Info Meaningful Use Diagnoses (Choose all that apply): None applicable Discharge Plan Admission Admit Date/Time: 09/19/21 11:11 Primary Reason for Your Visit: Hypotonic, hypovolemic hyponatremia Attending Provider: Carlo Iyer Primary Care Provider: Karli Thayer Consulting Providers: Joel Avila Discharge Orders/Prescriptions Prescriptions: New sodium chloride 1 gram Tablet 1 g PO TID Qty: 60 RF: 0 menthol-zinc oxide [Calmoseptine] 0.44-20.6 % Ointment 1 applic topical 4X/DAY Qty: 0 RF: 0 Continued primidone 50 MG tablet 50 mg PO TID RF: 0 polyethylene glycol 3350 17 GM powder in packet 17 g PO DAILY PRN (Reason: Constipation) RF: 0 lisinopril 20 MG tablet 20 mg PO DAILY RF: 0 ondansetron HCl [Zofran] 4 MG tablet 4 mg PO Q8H PRN (Reason: Nausea) RF: 0 acetaminophen 500 MG tablet 2 tab PO TID RF: 0 pyridoxine (vitamin B6) 50 MG tablet 150 mg PO DAILY RF: 0 sertraline [Zoloft] 50 MG tablet 50 mg PO DAILY RF: 0 atenolol 50 MG tablet 50 mg PO DAILY RF: 0 multivitamin with folic acid [Thera] 1 TABLET tablet 1 tab PO DAILY RF: 0 hyoscyamine sulfate 0.125 MG tablet, sublingual 0.125 mg sublingual Q12H PRN PRN (Reason: stomach cramps) RF: 0 quetiapine [Seroquel] 25 mg tablet 25 mg PO QHS RF: 0 potassium chloride [Klor-Con M15] 15 MEQ tablet,ER particles/crystals 30 meq PO DAILY Qty: 0 RF: 0 Discontinued hydrochlorothiazide 25 MG tablet 12.5 mg PO QODAY RF: 0 oxycodone [Roxicodone] 5 MG tablet 5 mg PO Q4H PRN (Reason: Moderate Pain (4-5/10)) RF: 0 Referrals / Follow Up: Joel Avila MD [STAFF PHYSICIAN] - Within 2 Weeks (with serum Na) Karli Thayer DO [Primary Care Provider] - In 1 Week Disposition Disposition (needs filled in before D/C Order can be placed): Intermediate Facility Charges/Coding Visit Charges Inpatient E&M: 14155 Disch Hosp
--- NOTE | 2021-09-25 11:35 | PHA.DC.MR ---
Pharmacy Service has performed discharge medication reconciliation for this patient. The patient's discharge medication list was reviewed for discrepancies and discrepancies were resolved. Home Medications acetaminophen 2 tab PO TID 09/03/17 atenolol 50 mg PO DAILY 09/03/17 lisinopril 20 mg PO DAILY 09/03/17 multivitamin with folic acid [Thera] 1 tab PO DAILY 09/03/17 ondansetron HCl [Zofran] 4 mg PO Q8H PRN 09/03/17 polyethylene glycol 3350 17 g PO DAILY PRN 09/03/17 primidone 50 mg PO TID 09/03/17 pyridoxine (vitamin B6) 150 mg PO DAILY 09/03/17 sertraline [Zoloft] 50 mg PO DAILY 09/03/17 hyoscyamine sulfate 0.125 mg SUBLINGUAL Q12H PRN PRN 11/11/17 quetiapine [Seroquel] 25 mg PO QHS 04/10/21 menthol-zinc oxide [Calmoseptine] 1 applic TOPICAL 4X/DAY #0 g 09/25/21 potassium chloride [Klor-Con M15] 30 meq PO DAILY #0 tab 09/25/21 sodium chloride 1 g PO TID #60 tab 09/25/21
--- NOTE | 2021-09-25 12:49 | CASEMGMT ---
Addendum entered by Cathleen Miguel 09/25/21 13:31: SW spoke with patient and let her know about flower buncher or picker time and that SW notified her daughter as well. Cathleen MONTAÑO Original Note: Patient is ready for discharge to [facility]. ADAMA completed 7000 on HENS as patient is observation status in the hospital. ADAMA faxed orders to [facility]. ADAMA arranged for patient to be picked up 3p via [facility] van. ADAMA notified RN, patient's daughter, and Elba at [facility]. Patient's daughter did ask ADAMA if a referral was made to Palliative Care. ADAMA let her know the physician put that in his discharge orders and SW will talk with Elba at [facility]. ADAMA called Elba at [facility] and reiterated the daughter's interest in a referral to Palliative Care. Plan: d/c to [facility] at [facility] under skilled level of care on a PASRR as patient is observation status in the hospital. [facility] transported patient via [facility] van. Cathleen MONTAÑO
[2021-09-25 13:35] VITALS: BP 128/66; PULSE 58; RESP 16; TEMP 36.8; O2SAT 97
== END 2021-09-25 11:20 | disposition skilled nursing facility (03) ==
LOC: ED 12:11 → PCU 12:18
PROVIDERS: Admitting Provider Student in an Organized Health Care Education/Training Program; Emergency Provider Emergency Medicine; PCP Internal Medicine; Visit Provider Internal Medicine
DX: E87.1 Hypo-osmolality and hyponatremia (principal); G93.41 Metabolic encephalopathy; E11.9 Type 2 diabetes mellitus without complications; E78.5 Hyperlipidemia, unspecified; I10 Essential (primary) hypertension; G20 Parkinson's disease; G25.81 Restless legs syndrome; F02.80 Dementia in other diseases classified elsewhere, unspecified severity, without behavioral disturbance, psychotic disturbance, mood disturbance, and anxiety; Z79.899 Other long term (current) drug therapy; G91.2 (Idiopathic) normal pressure hydrocephalus; Z98.2 Presence of cerebrospinal fluid drainage device; R47.89 Other speech disturbances; Z91.81 History of falling; R26.81 Unsteadiness on feet; I65.23 Occlusion and stenosis of bilateral carotid arteries
CPT/HCPCS: 36415; 70450; 70496; 70498; 71045; 80048; 81001; 82140; 82533; 83880; 83930; 83935; 84300; 84439; 84443; 84484; 85025; 85610; 85730; 87040; 87426; 93005; 96360; 96361; 96372; 97110; 97162; 97166; 97530; 97535; 99218; 99285; J7030; Q9967; A4216; G0378

== ENCOUNTER → 2022-08-01 | Outpatient (REF) | payer MEDICARE, MEDICAID, SELFPAY ==
[2022-08-01 09:19] LABS: Hematocrit 37.1 % (37-47); Hemoglobin 12.1 g/dL (12.0-15.0); Mean Corp Hgb Conc 32.6 g/dL (32-36); Mean Corpuscular Hgb 30.3 pg (27.0-32.0); Mean Platelet Vol. 11.3 fl (6.2-12.0); Platelet Count 308 K/mm3 (150-450); RBC Distribution Width CV 15.3 % (11.6-14.6); RBC Distribution Width SD 52.5 fl (35.1-43.9); Red Blood Count 3.99 M/mm3 (4.2-5.4); White Blood Count 9.1 K/mm3 (4.4-11.0)
[2022-08-01 09:22] LABS: Color, Urine Straw (Yellow); Glucose, Dipstick Normal (Normal); Ketone-Dipstick Negative (Negative); Leukocyte Esterase-Dipstick 100 /ul (Negative); Nitrite-Dipstick Negative (Negative); Occult Blood-Urine 10 /ul (Negative); Protein-Dipstick Negative (Negative); Urine Bilirubin Dipstick Negative (Negative); Urine Clarity Sl. Cloudy (Clear); Urine Urobilinogen Normal (Normal)
[2022-08-01 09:39] LABS: ALB/GLOB Ratio 0.9 RATIO (0.9-2.4); AST(SGOT) 16 U/L (15-37); Alanine Aminotransfer ALT/SGPT 18 U/L (13-56); Albumin, Serum 3.5 g/dL (3.2-5.0); Alkaline Phosphatase 63 U/L (45-117); Anion Gap 11 (5-15); BUN 16 mg/dL (7-18); BUN/Creat Ratio 23.2 RATIO (10-20); Calcium,Total 9.1 mg/dL (8.5-10.1); Chloride 99 mmol/L (98-107); Cholesterol 195 mg/dL (200); Creatinine, Serum 0.69 mg/dL (0.55-1.02); EST Glomerular Filtration Rate 86 mL/min (>60); Est Glom Filt Rate - Afr Amer 105 mL/min (>60); Glucose 88 mg/dL (74-106); High Density Lipoprotein 66 mg/dL; Potassium 4.1 mmol/L (3.5-5.1); Protein, Total 7.5 g/dL (6.4-8.2); Sodium Level 134 mmol/L (136-145); Thyroid Stim Hormone (TSH) 5.52 uIU/mL (0.358-3.74); Triglycerides 155 mg/dL; Very Low Density Lipoprotein 31 mg/dL (5-40)
[2022-08-02 08:28] LABS: Microalbumin,Random Urine < 5.0 mg/L (NO RANGE EST.)
== END ==
LOC: OLS.SWAL 07:03
PROVIDERS: PCP Internal Medicine
DX: R73.02 Impaired glucose tolerance (oral) (principal); Z79.899 Other long term (current) drug therapy
CPT/HCPCS: 36415; 80053; 80061; 81002; 82043; 82570; 84443; 85027

== ENCOUNTER → 2023-01-28 | Outpatient (REF) | payer MEDICARE, MEDICAID, SELFPAY ==
[2023-01-28 08:38] LABS: Hematocrit 37.5 % (37-47); Hemoglobin 12.3 g/dL (12.0-15.0); Mean Corp Hgb Conc 32.8 g/dL (32-36); Mean Corpuscular Hgb 31.5 pg (27.0-32.0); Mean Corpuscular Volume 96.2 fL (81-99); Platelet Count 272 K/mm3 (150-450); RBC Distribution Width SD 45.6 fl (35.1-43.9); White Blood Count 7.4 K/mm3 (4.4-11.0)
[2023-01-28 09:17] LABS: AST(SGOT) 19 U/L (15-37); Alanine Aminotransfer ALT/SGPT 18 U/L (13-56); Albumin, Serum 3.6 g/dL (3.2-5.0); Alkaline Phosphatase 64 U/L (45-117); Anion Gap 7 (5-15); BUN 17 mg/dL (7-18); BUN/Creat Ratio 26.2 RATIO (10-20); Calcium,Total 8.9 mg/dL (8.5-10.1); Chloride 101 mmol/L (98-107); Cholesterol 222 mg/dL (200); Creatinine, Serum 0.65 mg/dL (0.55-1.02); EST Glomerular Filtration Rate 93 mL/min (>60); Est Glom Filt Rate - Afr Amer 112 mL/min (>60); Globulin 3.5 g/dL (2.2-4.2); Glucose 93 mg/dL (74-106); High Density Lipoprotein 66 mg/dL; Potassium 4.1 mmol/L (3.5-5.1); Protein, Total 7.1 g/dL (6.4-8.2); Sodium Level 133 mmol/L (136-145); Thyroid Stim Hormone (TSH) 4.54 uIU/mL (0.358-3.74); Triglycerides 137 mg/dL; Very Low Density Lipoprotein 27 mg/dL (5-40)
== END ==
LOC: OLS.SWAL 05:00
PROVIDERS: PCP Internal Medicine; Visit Provider Internal Medicine
DX: R73.02 Impaired glucose tolerance (oral) (principal); Z79.899 Other long term (current) drug therapy
CPT/HCPCS: 36415; 80053; 80061; 84443; 85027

== ENCOUNTER 2023-08-20 12:27 | Emergency (ER) | payer MEDICARE, MEDICAID, SELFPAY ==
[2023-08-20 12:29] VITALS: BP 184/88; PULSE 61; RESP 16; TEMP 37; O2SAT 96; BMI 31.5
[2023-08-20 12:33] VITALS: BMI 31.5
--- NOTE | 2023-08-20 12:48 | EKG12_ITS ---
Test Reason : Blood Pressure : / mmHG Vent. Rate : 061 BPM Atrial Rate : 061 BPM P-R Int : 174 ms QRS Dur : 086 ms QT Int : 414 ms P-R-T Axes : 054 012 037 degrees QTc Int : 416 ms Normal sinus rhythm Normal ECG Confirmed by KADY RICH, PRO ([id number]), editor house organ VALERIA CORDOVA ([id number]) on 08/22/2023 7:07:00 AM Referred By: Confirmed By:RICHARDSON HILLMAN MD
--- NOTE | 2023-08-20 12:48 | CT_ITS ---
EXAM: CT HEAD WITHOUT INTRAVENOUS CONTRAST CLINICAL INDICATION: shunt TECHNIQUE: Multiple axial images were obtained of the head without intravenous contrast. This CT exam was performed using one or more of the following dose reduction techniques: automated exposure control, adjustment of the mA and/or kV according to patient size, and/or use of iterative reconstruction technique. COMPARISON: No relevant prior studies available. FINDINGS: BRAIN AND EXTRA-AXIAL SPACES: No hemorrhage or mass effect. No acute ischemia. Areas of diminished white matter density noted within both cerebral hemispheres suggestive of chronic microvascular change. Prominence of the cortical sulci and ventricles related to volume loss change. BONES/JOINTS: No suspicious lytic or blastic abnormality. SINUSES: No acute sinusitis. MASTOID AIR CELLS: Normal. Clear. TUBES, LINES AND DEVICES: Right frontal ventriculostomy tube remains in place. CT/Brain/Head without Contrast IMPRESSION: 1. No acute intracranial abnormality. 2. Stable senescent changes. Electronically Signed: Gumaro Olson MD at 13:57 EDT ,
--- NOTE | 2023-08-20 12:49 | EX.ED.DYSGE1 ---
HPI History of Present Illness Chief Complaint: Neuro S/Sx Narrative Narrative: Presents by EMS from nursing facility with several concerns from different people. Patient states she has no concerns at all. She feels perfectly fine. She has been walking with her walker is normal. Its not difficult. She has no pains that are new or different. She is not unstable. She does not feel weak. She has no visual changes. The [facility] evidently felt that she was sluggish on her right side. This evidently has been going on for a few days. Patient denies this. The patient's son states that he has noticed that her left eyelid seems droopy a little bit. And she may be seems just a little quieter than normal over the last few days. She is evidently presented with UTIs with things like this where she has just subtle changes in her behavior. They do not notice the weakness on the right side. They state the rest of the face looks normal its only the left eyelid that seems to droop on occasion. [facility] Medical History Dementia Diabetes History of hydrocephalus Hyperlipidemia Hypertension Hyponatremia Parkinson's disease Physical debility Home Medications acetaminophen 500 mg tablet 2 tab PO TID PAIN 09/03/17 [History Last Taken 09/02/17] atenolol 50 mg tablet 50 mg PO DAILY BLOOD PRESSURE 09/03/17 [History Last Taken 11/13/17 07:00] lisinopril 20 mg tablet 20 mg PO DAILY HYPERTENSION 09/03/17 [History Last Taken 11/13/17 07:00] multivitamin with folic acid 400 mcg tablet (Thera) 1 tab PO DAILY VITAMIN 09/03/17 [History Last Taken 09/02/17] ondansetron HCl 4 mg tablet (Zofran) 4 mg PO Q8H PRN Nausea 09/03/17 [History Last Taken Unknown] polyethylene glycol 3350 17 gram oral powder packet 17 g PO DAILY PRN Constipation 09/03/17 [History Last Taken Unknown] primidone 50 mg tablet 50 mg PO TID BLOOD PRESSURE 09/03/17 [History Last Taken 09/02/17] pyridoxine (vitamin B6) 50 mg tablet 150 mg PO DAILY REPLACEMENT 09/03/17 [History Last Taken 09/02/17] sertraline 50 mg tablet (Zoloft) 50 mg PO DAILY DEPRESSION 09/03/17 [History Last Taken 09/02/17] hyoscyamine sulfate 0.125 mg sublingual tablet 0.125 mg sublingual Q12H PRN PRN stomach cramps 11/11/17 [History Last Taken Unknown] quetiapine 25 mg tablet (Seroquel) 25 mg PO QHS 04/10/21 [History Last Taken Unknown] menthol 0.44 %-zinc oxide 20.6 % topical ointment (Calmoseptine) 1 applic topical 4X/DAY #0 grams 09/25/21 [Rx Last Taken Unknown] potassium chloride 15 mEq tablet,extended release(part/cryst) (Klor-Con M) 30 meq (2 x 15 mEq) PO DAILY #0 tabs 09/25/21 [Rx Last Taken Unknown] sodium chloride 1 gram tablet 1 g PO TID #60 tabs 09/25/21 [Rx Last Taken Unknown] Allergy/AdvReac Type Severity Reaction Status Date / Time Sulfa (Sulfonamide Allergy Unknown Verified 09/19/21 09:00 Antibiotics) peanut AdvReac Other Verified 09/19/21 09:00 Surgical History S/P [employer]SEM[employer]ER shunt Social History Smoking Status: Never smoker ROS ROS ED ROS Narrative A complete review of systems was performed and is negative except as documented in the history of present illness. Some specific details below. Constitutional: No recent fevers or chills. No rigors. Patient has not generally felt ill. She states she feels perfectly fine. EYE: No discharge, visual complaints, or pain. See HPI regarding left eyelid change noted by son. ENT: No difficulty swallowing. No swelling. No sinus pressure or pain. No nasal discharge. No change in hearing. No ear pain. CV: No chest pain, pressure or aching. No palpitations or irregular beats. Patient has not been presyncopal or syncopal. Respiratory: No trouble breathing. No cough. No wheezing. No sputum production. No pain with breathing. GI: No abdominal pain. No nausea vomiting diarrhea. No blood in stool. She states she has been eating and drinking fine. : No frequency dysuria or hematuria. Musculoskeletal: No recent trauma. No pains. No swelling. Skin: No rash. No diaphoresis. Neuro: No focal weakness or numbness other than the left eyelid. No difficulty with speaking. No difficulty understanding speech. No visual loss. Please see history of present illness also. Endocrine: No polyuria or polydipsia. EXAM Physical Exam Narrative Exam Narrative: CONSTITUTIONAL: Patient is nontoxic in appearance. The patient looks comfortable. Patient has a sense of humor. She is seeming a lot of energy. She verbally spars. She is very quick. HEENT: No notable trauma. Mucous membranes moist. No sinus tenderness. No facial rash. Peña sign is negative she does have palpable shunt on the right side of her head down her right neck. EYES: No conjunctival injection. No proptosis. No pain with range of motion. Funduscopic exam shows no marked abnormalities. Following directions and looking each side is a little difficult. Patient will look to each side and then go back to the center. I cannot get her to hold that position for me but she does not hold it with either eye. I am not picking up any disconjugate gaze though. She does have just a hint of left upper lid drooping. When she looks forward the left lid is just a little lower than the right. But when I have her look to the left or right or up hide the lid does lift up and look normal in those positions. NECK: No meningismus. No JVD. Range of motion is normal looking up down left and right without discomfort. CARDIOVASCULAR: Regular rate. Regular rhythm. No notable murmur. No JVD. RESPIRATORY: No respiratory distress. Breathing is unlabored. No wheezes. No rhonchi. No rales. No pain with a deep breath. GASTROINTESTINAL: Not distended. Bowel sounds are normal. No tenderness. No guarding. No rebound. No palpable mass. No bruit. GENITOURINARY: No tenderness over the bladder. No CVA tenderness. MUSCULOSKELETAL: Atraumatic. No peripheral edema. No cord. No tenderness along the deep venous system. No asymmetry. NEUROLOGICAL: Patient is alert and oriented. No focal deficit noted. NIH stroke scale is 0. She has slight lid drooping but no drooping anywhere else in the face. I am not picking up any facial sensation loss though SKIN: No noted rashes. No diaphoresis. No vesicles noted. PSYCHIATRIC: Patient is calm. Mood is appropriate. Const Vital Signs: 08/20/23 12:29 08/20/23 15:10 Temperature 98.6 F Temperature Source Oral Pulse Rate 61 60 Respiratory Rate 16 18 Blood Pressure 184/88 H 195/90 H Blood Pressure Mean 120 125 Pulse Ox 96 95 Oxygen Delivery Method Room Air Room Air MDM MDM MDM Narrative Medical decision making narrative: Patient CBC shows no marked abnormalities. Patient's electrolytes show minimally low potassium sodium and chloride but these are just small changes and concern for. They are unlikely to be the cause of her symptoms. Patient's glucose is mildly up at 121 but this does not need treatment. Patient's urine is clear. There are 10-25 white cells and 1+ bacteria with leukocyte esterase. But there is also 5-10 epithelial cells. I talked with the patient and family about this. She has no urinary symptoms. We mutually agreed to send a culture but not start treatment now. My independent interpretation of the patient's CT scan of the head shows presence of her shunt but no ventricular dilatation of significance. No sign of bleeding or stroke. Final reading is similar. When patient is just sitting still her left eyelid has a very small droop and but when she talks it goes up normal. When she looks it goes normal. She has normal motion in it. There is no facial anesthesia. No limitation of range of motion of the eyes. No diplopia with motion of the eyes. I do not think this represents an acute stroke. This may be age-related change. This could be myasthenia. It is possible it is related to the small electrolyte abnormalities but that is unlikely. This is unlikely to be Churchill's as there is no weakness anywhere else in the face. Patient is not a good candidate for anticoagulation in either case. She is asymptomatic. I think this can be managed as a follow-up. Lab Data Attestation: I reviewed the patient's lab results. Labs: Laboratory Results - last 24 hr 08/20/23 08/20/23 13:15 13:30 WBC 8.0 RBC 3.99 L Hgb 12.7 Hct 37.7 MCV 94.5 MCH 31.8 MCHC 33.7 RDW Std Deviation 43.9 RDW Coeff of Rola 12.6 Plt Count 362 MPV 10.5 Immature Gran % (Auto) 0.200 Neut % (Auto) 71.8 H Lymph % (Auto) 21.3 [place] % (Auto) 6.3 Eos % (Auto) 0.2 Baso % (Auto) 0.2 Absolute Neuts (auto) 5.8 Absolute Lymphs (auto) 1.71 Nucleated RBC % 0 Sodium 133 L Potassium 3.4 L Chloride 97 L Carbon Dioxide 27.0 Anion Gap 9 BUN 12 Creatinine 0.61 Estim Creat Clear Calc 42.93 Est GFR (MDRD) Af Amer 120 Est GFR (MDRD) Non-Af 99 BUN/Creatinine Ratio 19.6 Glucose 121 H Calcium 8.8 Urine Color Yellow Urine Clarity Clear Urine pH 7.0 Ur Specific [place] 1.010 Urine Protein 15 H Urine Glucose (UA) Normal Urine Ketones Negative Urine Occult Blood 25 H Urine Nitrite Negative Urine Bilirubin Negative Urine Urobilinogen Normal Ur Leukocyte Esterase 500 H Urine RBC 0 SEEN Urine WBC 10-25 SEEN Ur Squamous Epith Cells 5-10 SEEN Urine Bacteria 1+ Urine Mucus 0 SEEN Radiography Diagnostic Testing: Clinical Impression(s) from Imaging Studies Brain CT 08/20/23 12:48 IMPRESSION: 1. No acute intracranial abnormality. 2. Stable senescent changes. Electronically Signed: Gumaro Olson MD at 13:57 EDT , Discharge Plan Triage Chief Complaint: Neuro S/Sx ED Provider: Pino Piña Dx/Rx/DC Orders Clinical Impression: Eyelid abnormality, Pyuria, Presence of cerebrospinal fluid drainage device Instructions: ED Weakness (Uncertain Cause) Prescriptions: No Action primidone 50 MG tablet 50 mg PO TID polyethylene glycol 3350 17 GM powder in packet 17 g PO DAILY PRN (Reason: Constipation) lisinopril 20 MG tablet 20 mg PO DAILY ondansetron HCl [Zofran] 4 MG tablet 4 mg PO Q8H PRN (Reason: Nausea) acetaminophen 500 MG tablet 2 tab PO TID pyridoxine (vitamin B6) 50 MG tablet 150 mg PO DAILY sertraline [Zoloft] 50 MG tablet 50 mg PO DAILY atenolol 50 MG tablet 50 mg PO DAILY multivitamin with folic acid [Thera] 1 TABLET tablet 1 tab PO DAILY hyoscyamine sulfate 0.125 MG tablet, sublingual 0.125 mg sublingual Q12H PRN PRN (Reason: stomach cramps) quetiapine [Seroquel] 25 mg tablet 25 mg PO QHS sodium chloride 1 gram Tablet 1 g PO TID Qty: 60 0RF menthol-zinc oxide [Calmoseptine] 0.44-20.6 % Ointment 1 applic topical 4X/DAY Qty: 0 0RF Protocol: *Topical Application Instructions APPLICATION INSTRUCTIONS: apply to affected areas potassium chloride [Klor-Con M15] 15 MEQ tablet,ER particles/crystals 30 meq PO DAILY Qty: 0 0RF Rx Instructions: Hold if K more than 5.0 Primary Care Provider: Karli Thayer Referrals: Karli Thayer DO [Primary Care Provider] - 3-5 Days Disposition Disposition: [facility] Facility
[2023-08-20 13:21] LABS: Absolute Lymphocyte Count 1.71 X10^3/uL (0.83-4.51); Absolute Neutrophil Count 5.8 X10^3/uL (2.0-7.7); Basophil# 0.02 X10^3/uL; Basophil% 0.2 % (0-1); Eosinophil# 0.02 X10^3/uL; Eosinophils% 0.2 % (0-5); Hematocrit 37.7 % (37-47); Hemoglobin 12.7 g/dL (12.0-15.0); Lymphocyte # 1.71 X10^3/ul (0.83-4.51); Lymphocyte % 21.3 % (19-41); Mean Corp Hgb Conc 33.7 g/dL (32-36); Mean Corpuscular Hgb 31.8 pg (27.0-32.0); Mean Corpuscular Volume 94.5 fL (81-99); Mean Platelet Vol. 10.5 fl (6.2-12.0); Monocyte# 0.51 X10^3/uL; Monocyte% 6.3 % (0-10); NRBC Flagged by Analyzer 0 % (0-5); Neutrophil # 5.76 X10^3/uL (2.7-7.7); Neutrophil % 71.8 % (47-70); Platelet Count 362 K/mm3 (150-450); RBC Distribution Width CV 12.6 % (11.6-14.6); RBC Distribution Width SD 43.9 fl (35.1-43.9); Red Blood Count 3.99 M/mm3 (4.2-5.4)
[2023-08-20 13:36] LABS: Mucous, Urine 0 SEEN /hpf (<or=2+); Red Blood Cells-Urine 0 SEEN /hpf (0-5)
[2023-08-20 13:38] LABS: Anion Gap 9 (5-15); BUN 12 mg/dL (7-18); BUN/Creat Ratio 19.6 RATIO (10-20); Calcium,Total 8.8 mg/dL (8.5-10.1); Chloride 97 mmol/L (98-107); Creatinine, Serum 0.61 mg/dL (0.55-1.02); EST Glomerular Filtration Rate 99 mL/min (>60); Est Glom Filt Rate - Afr Amer 120 mL/min (>60); Estimated Creatinine Clearance 42.93 ml/min; Glucose 121 mg/dL (74-106); Potassium 3.4 mmol/L (3.5-5.1); Sodium Level 133 mmol/L (136-145)
[2023-08-20 13:49] LABS: Color, Urine Yellow (Yellow); Glucose, Dipstick Normal (Normal); Ketone-Dipstick Negative (Negative); Leukocyte Esterase-Dipstick 500 /ul (Negative); Nitrite-Dipstick Negative (Negative); Occult Blood-Urine 25 /ul (Negative); Protein-Dipstick 15 mg/dl (Negative); Urine Bilirubin Dipstick Negative (Negative); Urine Clarity Clear (Clear); Urine Urobilinogen Normal (Normal)
[2023-08-20 14:15] LABS: Bacteria 1+ /hpf (None Seen); Squamous Epithelial Cells - UA 5-10 SEEN /hpf (5-10); White Blood Cells 10-25 SEEN /hpf (0-5)
[2023-08-20 15:10] VITALS: BP 195/90; PULSE 60; RESP 18; O2SAT 95
[2023-08-20 16:02] VITALS: BP 171/98; PULSE 62; O2SAT 98
[2023-08-24 03:07] LABS: Bedside Glucose 105 mg/dL (74-106)
== END 2023-08-20 16:05 | disposition home or self-care (01) ==
PROVIDERS: Emergency Provider Emergency Medicine; PCP Internal Medicine; Visit Provider Emergency Medicine
DX: H02.402 Unspecified ptosis of left eyelid (principal); F02.80 Dementia in other diseases classified elsewhere, unspecified severity, without behavioral disturbance, psychotic disturbance, mood disturbance, and anxiety; E11.9 Type 2 diabetes mellitus without complications; R82.81 Pyuria; G20.A1 Parkinson's disease without dyskinesia, without mention of fluctuations; I10 Essential (primary) hypertension; E78.5 Hyperlipidemia, unspecified; Z98.2 Presence of cerebrospinal fluid drainage device
CPT/HCPCS: 70450; 80048; 81001; 82962; 85025; 87086; 93005; 99284; A4216

== ENCOUNTER → 2023-10-07 | Outpatient (REF) | payer MEDICARE, MEDICAID, SELFPAY ==
[2023-10-07 09:07] LABS: Hematocrit 31.7 % (37-47); Hemoglobin 10.5 g/dL (12.0-15.0); Mean Corp Hgb Conc 33.1 g/dL (32-36); Mean Corpuscular Hgb 32.4 pg (27.0-32.0); Mean Corpuscular Volume 97.8 fL (81-99); Mean Platelet Vol. 12.1 fl (6.2-12.0); Platelet Count 260 K/mm3 (150-450); RBC Distribution Width CV 13.7 % (11.6-14.6); RBC Distribution Width SD 49.4 fl (35.1-43.9); Red Blood Count 3.24 M/mm3 (4.2-5.4); White Blood Count 7.8 K/mm3 (4.4-11.0)
[2023-10-07 09:36] LABS: ALB/GLOB Ratio 0.9 RATIO (0.9-2.4); AST(SGOT) 13 U/L (15-37); Alanine Aminotransfer ALT/SGPT 14 U/L (13-56); Alkaline Phosphatase 67 U/L (45-117); Anion Gap 6 (5-15); BUN 22 mg/dL (7-18); BUN/Creat Ratio 30.1 RATIO (10-20); Calcium,Total 8.7 mg/dL (8.5-10.1); Chloride 102 mmol/L (98-107); Creatinine, Serum 0.73 mg/dL (0.55-1.02); EST Glomerular Filtration Rate 81 mL/min (>60); Est Glom Filt Rate - Afr Amer 98 mL/min (>60); Globulin 3.2 g/dL (2.2-4.2); Glucose 96 mg/dL (74-106); Protein, Total 6.2 g/dL (6.4-8.2); Sodium Level 134 mmol/L (136-145)
== END ==
LOC: OLS.SW 05:00
PROVIDERS: PCP Internal Medicine; Visit Provider Family Medicine
DX: E11.9 Type 2 diabetes mellitus without complications (principal); I10 Essential (primary) hypertension; G20.C Parkinsonism, unspecified
CPT/HCPCS: 36415; 80053; 85027

== ENCOUNTER → 2023-10-09 | Outpatient (REF) | payer MEDICARE, MEDICAID, SELFPAY ==
[2023-10-09 08:01] LABS: Hematocrit 32.5 % (37-47); Hemoglobin 10.5 g/dL (12.0-15.0); Mean Corp Hgb Conc 32.3 g/dL (32-36); Mean Corpuscular Hgb 31.5 pg (27.0-32.0); Mean Corpuscular Volume 97.6 fL (81-99); Mean Platelet Vol. 11.6 fl (6.2-12.0); Platelet Count 261 K/mm3 (150-450); RBC Distribution Width CV 13.6 % (11.6-14.6); RBC Distribution Width SD 47.8 fl (35.1-43.9); Red Blood Count 3.33 M/mm3 (4.2-5.4); White Blood Count 7.7 K/mm3 (4.4-11.0)
[2023-10-09 08:26] LABS: ALB/GLOB Ratio 0.9 RATIO (0.9-2.4); AST(SGOT) 10 U/L (15-37); Alanine Aminotransfer ALT/SGPT 16 U/L (13-56); Albumin, Serum 3.1 g/dL (3.2-5.0); Alkaline Phosphatase 68 U/L (45-117); Anion Gap 6 (5-15); BUN 17 mg/dL (7-18); Calcium,Total 9.1 mg/dL (8.5-10.1); Chloride 104 mmol/L (98-107); Creatinine, Serum 0.65 mg/dL (0.55-1.02); EST Glomerular Filtration Rate 92 mL/min (>60); Est Glom Filt Rate - Afr Amer 111 mL/min (>60); Globulin 3.3 g/dL (2.2-4.2); Glucose 95 mg/dL (74-106); Potassium 4.1 mmol/L (3.5-5.1); Protein, Total 6.4 g/dL (6.4-8.2); Sodium Level 135 mmol/L (136-145)
== END ==
LOC: OLS.SWAL 05:00
PROVIDERS: PCP Internal Medicine; Visit Provider Internal Medicine
DX: R73.02 Impaired glucose tolerance (oral) (principal)
CPT/HCPCS: 36415; 80053; 85027

== ENCOUNTER → 2023-11-10 | Outpatient (REF) | payer MEDICARE, MEDICAID, SELFPAY ==
[2023-11-10 09:18] LABS: Hematocrit 38.1 % (37-47); Hemoglobin 12.4 g/dL (12.0-15.0); Mean Corp Hgb Conc 32.5 g/dL (32-36); Mean Corpuscular Hgb 32.3 pg (27.0-32.0); Mean Corpuscular Volume 99.2 fL (81-99); Mean Platelet Vol. 11.5 fl (6.2-12.0); Platelet Count 313 K/mm3 (150-450); RBC Distribution Width CV 13.8 % (11.6-14.6); RBC Distribution Width SD 50.5 fl (35.1-43.9); Red Blood Count 3.84 M/mm3 (4.2-5.4); White Blood Count 7.5 K/mm3 (4.4-11.0)
[2023-11-10 10:10] LABS: ALB/GLOB Ratio 1.1 RATIO (0.9-2.4); AST(SGOT) 14 U/L (15-37); Alanine Aminotransfer ALT/SGPT 16 U/L (13-56); Albumin, Serum 3.7 g/dL (3.2-5.0); Alkaline Phosphatase 77 U/L (45-117); Anion Gap 8 (5-15); BUN 18 mg/dL (7-18); BUN/Creat Ratio 25.5 RATIO (10-20); Calcium,Total 9.5 mg/dL (8.5-10.1); Chloride 100 mmol/L (98-107); EST Glomerular Filtration Rate 84 mL/min (>60); Est Glom Filt Rate - Afr Amer 102 mL/min (>60); Globulin 3.4 g/dL (2.2-4.2); Glucose 94 mg/dL (74-106); Protein, Total 7.1 g/dL (6.4-8.2); Sodium Level 134 mmol/L (136-145)
== END ==
LOC: OLS.SWAL 04:00
PROVIDERS: PCP Internal Medicine; Referring Provider Internal Medicine; Visit Provider Internal Medicine
DX: R73.02 Impaired glucose tolerance (oral) (principal)
CPT/HCPCS: 36415; 80053; 85027

== ENCOUNTER → 2023-11-19 | Outpatient (REF) | payer MEDICARE, MEDICAID, SELFPAY ==
[2023-11-19 09:00] LABS: Vitamin B12 717 pg/mL (211-911)
== END ==
LOC: OLS.SWAL 05:00
PROVIDERS: PCP Internal Medicine; Visit Provider Internal Medicine
DX: D75.89 Other specified diseases of blood and blood-forming organs (principal)
CPT/HCPCS: 36415; 82607; 82746

== ENCOUNTER → 2024-01-09 | Outpatient (REF) | payer MEDICARE, MEDICAID, SELFPAY ==
[2024-01-09 08:24] LABS: Hematocrit 40.3 % (37-47); Hemoglobin 13.6 g/dL (12.0-15.0); Mean Corp Hgb Conc 33.7 g/dL (32-36); Mean Corpuscular Hgb 32.5 pg (27.0-32.0); Mean Corpuscular Volume 96.2 fL (81-99); Platelet Count 295 K/mm3 (150-450); RBC Distribution Width CV 12.1 % (11.6-14.6); RBC Distribution Width SD 43.1 fl (35.1-43.9); Red Blood Count 4.19 M/mm3 (4.2-5.4); White Blood Count 7.4 K/mm3 (4.4-11.0)
[2024-01-09 08:39] LABS: ALB/GLOB Ratio 1.1 RATIO (0.9-2.4); AST(SGOT) 20 U/L (15-37); Alanine Aminotransfer ALT/SGPT 16 U/L (13-56); Alkaline Phosphatase 77 U/L (45-117); Anion Gap 7 (5-15); BUN 13 mg/dL (7-18); BUN/Creat Ratio 19.6 RATIO (10-20); Calcium,Total 9.4 mg/dL (8.5-10.1); Chloride 100 mmol/L (98-107); Creatinine, Serum 0.66 mg/dL (0.55-1.02); EST Glomerular Filtration Rate 90 mL/min (>60); Est Glom Filt Rate - Afr Amer 109 mL/min (>60); Globulin 3.5 g/dL (2.2-4.2); Glucose 94 mg/dL (74-106); Potassium 4.1 mmol/L (3.5-5.1); Protein, Total 7.5 g/dL (6.4-8.2); Sodium Level 133 mmol/L (136-145)
== END ==
LOC: OLS.SWAL 05:00
PROVIDERS: PCP Internal Medicine; Visit Provider Internal Medicine
DX: R73.02 Impaired glucose tolerance (oral) (principal)
CPT/HCPCS: 36415; 80053; 85027

== ENCOUNTER → 2024-03-12 | Outpatient (REF) | payer MEDICARE, MEDICAID, SELFPAY ==
[2024-03-12 08:57] LABS: Hemoglobin 12.8 g/dL (12.0-15.0); Mean Corp Hgb Conc 33.7 g/dL (32-36); Mean Corpuscular Hgb 31.8 pg (27.0-32.0); Mean Corpuscular Volume 94.3 fL (81-99); Mean Platelet Vol. 10.7 fl (6.2-12.0); Platelet Count 274 K/mm3 (150-450); RBC Distribution Width CV 13.3 % (11.6-14.6); RBC Distribution Width SD 46.6 fl (35.1-43.9); Red Blood Count 4.03 M/mm3 (4.2-5.4); White Blood Count 6.4 K/mm3 (4.4-11.0)
[2024-03-12 09:22] LABS: ALB/GLOB Ratio 1.1 RATIO (0.9-2.4); AST(SGOT) 20 U/L (15-37); Alanine Aminotransfer ALT/SGPT 17 U/L (13-56); Albumin, Serum 3.9 g/dL (3.2-5.0); Alkaline Phosphatase 71 U/L (45-117); Anion Gap 5 (5-15); BUN 11 mg/dL (7-18); BUN/Creat Ratio 17.2 RATIO (10-20); Calcium,Total 9.3 mg/dL (8.5-10.1); Chloride 98 mmol/L (98-107); Creatinine, Serum 0.64 mg/dL (0.55-1.02); EST Glomerular Filtration Rate 94 mL/min (>60); Est Glom Filt Rate - Afr Amer 114 mL/min (>60); Globulin 3.5 g/dL (2.2-4.2); Glucose 106 mg/dL (74-106); Potassium 4.3 mmol/L (3.5-5.1); Protein, Total 7.4 g/dL (6.4-8.2); Sodium Level 130 mmol/L (136-145)
== END ==
LOC: OLS.SWAL 05:00
PROVIDERS: PCP Internal Medicine; Visit Provider Internal Medicine
DX: R73.02 Impaired glucose tolerance (oral) (principal)
CPT/HCPCS: 36415; 80053; 85027

== ENCOUNTER → 2024-04-08 08:43 | Outpatient (REF) | payer MEDICARE, MEDICAID, SELFPAY ==
[2024-04-09 08:44] LABS: Mucous, Urine 0 SEEN /hpf (<or=2+)
[2024-04-09 08:55] LABS: Color, Urine Yellow (Yellow); Glucose, Dipstick Normal (Normal); Ketone-Dipstick Negative (Negative); Leukocyte Esterase-Dipstick 500 /ul (Negative); Nitrite-Dipstick Negative (Negative); Occult Blood-Urine 10 /ul (Negative); Protein-Dipstick Negative (Negative); Urine Bilirubin Dipstick Negative (Negative); Urine Clarity Clear (Clear); Urine Urobilinogen Normal (Normal)
[2024-04-09 09:05] LABS: Bacteria 1+ /hpf (None Seen); Red Blood Cells-Urine 0-5 SEEN /hpf (0-5); Squamous Epithelial Cells - UA 0-5 SEEN /hpf (5-10); White Blood Cells 0-5 SEEN /hpf (0-5)
== END ==
LOC: OLS.SWAL 08:43
PROVIDERS: PCP Internal Medicine; Referring Provider Internal Medicine; Visit Provider Internal Medicine
DX: N39.0 Urinary tract infection, site not specified (principal)
CPT/HCPCS: 81001

== ENCOUNTER → 2024-04-12 | Outpatient (REF) | payer MEDICARE, MEDICAID, SELFPAY ==
[2024-04-13 10:50] LABS: Mucous, Urine 0 SEEN /hpf (<or=2+)
[2024-04-13 10:59] LABS: Color, Urine Yellow (Yellow); Glucose, Dipstick Normal (Normal); Ketone-Dipstick Negative (Negative); Leukocyte Esterase-Dipstick 100 /ul (Negative); Nitrite-Dipstick Negative (Negative); Occult Blood-Urine 10 /ul (Negative); Protein-Dipstick Negative (Negative); Urine Bilirubin Dipstick Negative (Negative); Urine Clarity Sl. Cloudy (Clear); Urine Urobilinogen Normal (Normal)
[2024-04-13 11:06] LABS: Bacteria RARE /hpf (None Seen); Red Blood Cells-Urine 0-5 SEEN /hpf (0-5); Squamous Epithelial Cells - UA 0-5 SEEN /hpf (5-10); White Blood Cells 0-5 SEEN /hpf (0-5)
== END ==
LOC: OLS.SWAL 16:00
PROVIDERS: PCP Internal Medicine; Visit Provider Internal Medicine
DX: N39.0 Urinary tract infection, site not specified (principal)
CPT/HCPCS: 81001; 87086

== ENCOUNTER 2024-05-02 20:56 | Emergency (ER) | payer MEDICARE, MEDICAID, SELFPAY ==
[2024-05-02 20:57] VITALS: BP 162/93; PULSE 76; RESP 20; TEMP 35.8; O2SAT 94; BMI 32.7
--- NOTE | 2024-05-02 21:12 | CT_ITS ---
STUDY: CT BRAIN WITHOUT CONTRAST REASON FOR EXAM: Female, 84 years old. head injury Individualized dose optimization techniques were used for this CT. TECHNIQUE: Transaxial CT imaging of the brain was performed without administration of intravenous contrast material. COMPARISON: 08/20/2023 FINDINGS: There are calcifications noted in the distal vertebral arteries. There are calcifications noted in the cavernous carotid arteries. This is consistent for atherosclerotic disease. Normal calvarium. Normal soft tissues. 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 Tip in the right lateral ventricle. There is mild cerebral atrophy with widening of the extra-axial spaces and ventricular dilatation. There are areas of decreased attenuation within the white matter tracts of the supratentorial brain, consistent with microvascular disease changes. Normal basal ganglia and thalami. Normal brainstem. There is mild cerebellar atrophy. There is no intracranial hemorrhage. There are no findings of an acute ischemic infarction. Normal visualized paranasal sinuses. ASPECTS Score for Acute Strokes: 08/12 CT/Brain/Head without Contrast IMPRESSION: There are no acute findings. Chronic involutional changes of the brain. Electronically Signed: Herber Myers MD at 21:44 EDT ,
--- NOTE | 2024-05-02 21:12 | CT_ITS ---
EXAM: CT SPINE - CERVICAL WITHOUT IV REASON FOR EXAM: Female, 84 years old. NECK PAIN fall HISTORY: NECK PAIN fall Individualized dose optimization techniques were used for this CT. TECHNIQUE: Multiplanar images were obtained of the cervical spine. IV contrast was not utilized. COMPARISON: None. FINDINGS: The vertebral bodies do maintain their height. The odontoid process is intact. There is grade 1 anterolisthesis of C3 on C4 .No pre-vertebral soft tissue swelling is seen. The intravertebral disc height is lost. There are scattered lymph nodes in the neck. There are degenerative changes of the osseous structures. There is bilateral facet arthropathy. There are scattered levels of foraminal stenosis. There are vascular calcifications. Osseous fusion of C5-6. There is grade 1 anterolisthesis of C4 on C5. CT/Spine Cervical without Contras IMPRESSION: Degenerative changes of the cervical spine. There are no acute findings. Electronically Signed: Herber Myers MD at 21:47 EDT ,
--- NOTE | 2024-05-02 21:13 | EDS_ITS ---
HPI <ALIA Chester - Last Filed: 05/02/24 21:54> History of Present Illness Chief Complaint: Fall Narrative Narrative: Patient is an 84-year-old female who lives in assisted living, who had a mechanical fall today striking the back of her head. Patient has history of Parkinson's disease, hypertension, diabetes who has a shunt to the right side of her brain. Patient was watering the may when she turned wrong falling backwards hitting her head. Patient states she knocked a flowerpot over with her back. Patient states that she has no significant pain however secondary to her history they wanted her to come in and be checked out. Patient denies any headache, denies any dizziness. PFS <ALIA Chester - Last Filed: 05/02/24 21:54> [facility] Medical History Dementia Diabetes History of hydrocephalus Hyperlipidemia Hypertension Hyponatremia Parkinson's disease Physical debility Home Medications ?Medication ?Instructions ?Recorded ?Last Taken ?Type acetaminophen 500 mg tablet 2 tab PO TID PAIN 09/03/17 09/02/17 History atenolol 50 mg tablet 50 mg PO DAILY BLOOD PRESSURE 09/03/17 11/13/17 07:00 History lisinopril 20 mg tablet 20 mg PO DAILY HYPERTENSION 09/03/17 11/13/17 07:00 History multivitamin with folic acid 400 1 tab PO DAILY VITAMIN 09/03/17 09/02/17 History mcg tablet (Thera) ondansetron HCl 4 mg tablet 4 mg PO Q8H PRN Nausea 09/03/17 Unknown History (Zofran) polyethylene glycol 3350 17 gram 17 g PO DAILY PRN Constipation 09/03/17 Unknown History oral powder packet primidone 50 mg tablet 50 mg PO TID BLOOD PRESSURE 09/03/17 09/02/17 History pyridoxine (vitamin B6) 50 mg 150 mg PO DAILY REPLACEMENT 09/03/17 09/02/17 History tablet sertraline 50 mg tablet (Zoloft) 50 mg PO DAILY DEPRESSION 09/03/17 09/02/17 History hyoscyamine sulfate 0.125 mg 0.125 mg sublingual Q12H PRN PRN 11/11/17 Unknown History sublingual tablet stomach cramps quetiapine 25 mg tablet (Seroquel) 25 mg PO QHS 04/10/21 Unknown History menthol 0.44 %-zinc oxide 20.6 % 1 applic topical 4X/DAY #0 grams 09/25/21 Unknown Rx topical ointment (Calmoseptine) potassium chloride 15 mEq 30 meq (2 x 15 mEq) PO DAILY #0 09/25/21 Unknown Rx tablet,extended tabs release(part/cryst) (Klor-Con M) sodium chloride 1 gram tablet 1 g PO TID #60 tabs 09/25/21 Unknown Rx Allergy/AdvReac Type Severity Reaction Status Date / Time Sulfa (Sulfonamide Allergy Unknown Verified 09/19/21 09:00 Antibiotics) peanut AdvReac Other Verified 09/19/21 09:00 Surgical History S/P OVERNIGHT STOCKER shunt Social History Smoking Status: Never smoker ROS <ALIA Chester - Last Filed: 05/02/24 21:54> ROS ED ROS Narrative Constitutional: Negative for fever, chills, weight loss, weakness Eyes: Negative for vision loss, vision change, double vision ENT: Negative for any sore throat, ear pain, congestion Cardiovascular: Negative for any chest pain, tightness, palpitations Respiratory: Negative for any cough, sputum production, hemoptysis, dyspnea, dyspnea on exertion, orthopnea Gastrointestinal: Negative for any abdominal pain, nausea, vomiting, diarrhea, constipation, blood in stool, blood in vomit : Negative for any urinary frequency, dysuria, retention, blood in urine Muscle skeletal: Negative for any neck pain, back pain Neurological: Negative for any syncope, dizziness. Skin: Negative for any rashes, itching, abrasions, lacerations Psychiatric: Negative for any depression, anxiety, stress, suicidal ideation, homicidal ideation Hematologic: Negative for any excessive bruising, easy bleeding EXAM <ALIA Chester - Last Filed: 05/02/24 21:54> Physical Exam Narrative Exam Narrative: Vital signs reviewed. HEET: Head normocephalic atraumatic, TMs clear bilaterally. Posterior pharynx is clear, moist mucous membranes. Nares clear bilaterally. Pupils are equal round reactive to light. Negative for any hemotympanum or septal hematoma. Patient does have a shunt that I can palpate to the occiput, right side of her skull. Neck: Supple with no lymphadenopathy or tenderness. No signs of meningismus. Cardiac: Regular rate and rhythm no murmurs gallops or rubs, equal peripheral pulses bilaterally. Respiratory: Lungs clear to auscultation bilaterally. No chest tenderness. Abdomen: Soft, nontender, nondistended. No abdominal bruit or pulsatile masses. No hepatosplenomegaly Extremities: No peripheral edema, no signs of gross trauma or deformity. Active full range of motion of all extremities. I was able to get the patient up off the bed, patient was steady on her feet. No dizziness. Neuro: Cranial nerves II through XII intact, no focal neurological deficits. Skin: Clean dry and intact with no rash, purpura, petechiae, vesicles or pustules. Backs/flank: No CVA tenderness, no midline spinal tenderness, no deformity. Psych: Normal mood and affect. No SI, HI or acute psychosis. Const Vital Signs: 05/02/24 20:57 05/02/24 21:04 Temperature 96.4 F L Temperature Source Temporal Pulse Rate 76 Respiratory Rate 20 H Respiratory Effort Normal Respiratory Depth Normal Respiratory Pattern Normal Blood Pressure 162/93 H Blood Pressure Mean 116 Pulse Ox 94 Oxygen Delivery Method Room Air Room Air <Dr. Lebron Garcia DO - Last Filed: 05/02/24 21:58> Physical Exam Const Vital Signs: 05/02/24 20:57 05/02/24 21:04 Temperature 96.4 F L Temperature Source Temporal Pulse Rate 76 Respiratory Rate 20 H Respiratory Effort Normal Respiratory Depth Normal Respiratory Pattern Normal Blood Pressure 162/93 H Blood Pressure Mean 116 Pulse Ox 94 Oxygen Delivery Method Room Air Room Air [facility] <ALIA Chester - Last Filed: 05/02/24 21:54> [facility] Radiography Diagnostic Testing: Clinical Impression(s) from Imaging Studies Brain CT 05/02/24 21:12 IMPRESSION: There are no acute findings. Chronic involutional changes of the brain. Electronically Signed: Herber Myers MD at 21:44 EDT , Cervical Spine CT 05/02/24 21:12 IMPRESSION: Degenerative changes of the cervical spine. There are no acute findings. Electronically Signed: Herber Myers MD at 21:47 EDT , Treatment and Re-Evaluation :: Differential diagnosis includes however is not limited to: Closed head injury, skull fracture, to cranial hemorrhage, concussion, cervical strain Patient appears generally well, patient appears nontoxic, vital signs are stable. Presenting to the emergency department after sustaining a mechanical fall hitting the back of her head. Patient does have a shunt and they are concerned. Patient was he was CT scan of the brain, cervical spine. All radiologic examinations were read, reviewed by the emergency department attending. From these reads, a plan of care will be put in place. Patient CT scan of the brain shows no acute findings, chronic involutional changes of the brain. CT scan of the cervical spine shows degenerative changes, no acute findings. At this time, I do believe the patient is stable for discharge back to the facility. She is agreeable. Instructed take ibuprofen, Tylenol, her pain medicine as needed. Patient stable for discharge <Dr. Lebron Garcia, DO - Last Filed: 05/02/24 21:58> [facility] Narrative Medical decision making narrative: I have personally performed a face to face assessment of the patient and have reviewed the SARAH Note. I performed a substantive portion of the visit including all aspects of the following. My rice findings include: History: Patient presents after a fall that occurred tonight. Patient states she took a water and can out to her patio to water may. Patient states she lost her balance and fell. Patient does not think she hit her head. Patient states she has a history of prior brain surgery and a OVERNIGHT STOCKER shunt. Patient states she tries to avoid hitting her head in any way. Patient complains of pain over the occipital scalp and neck. Patient denies any loss of consciousness. Exam: Vital signs are stable. Patient is afebrile. Patient is in no acute distress. Pupils are equal, round, and reactive to light bilaterally. Extraocular muscles are intact. Conjunctiva is clear. There is some mild ten derness over the right occipital scalp and upper cervical paraspinal muscles. There is no bony crepitance or step-off. Heart was regular rate and rhythm. Lungs are clear and equal bilaterally. Abdomen is soft. Bowel sounds are normal. There is no tenderness. Cranial nerves II through XII are intact. There are no focal motor or sensory deficits noted. Medical Decision Making: Differential diagnosis includes intracranial bleeding, stroke, cervical spine fracture, acute cervical strain, and contusion. CT scan of the brain will be obtained to assess for intracranial bleeding and stroke. CT scan of the cervical spine will be obtained to assess for cervical spine fracture and spondylolisthesis. CT scan of the brain was obtained. There is no acute intracranial abnormality noted. There are chronic changes noted. The OVERNIGHT STOCKER shunt is in place. This was interpreted by the radiologist was also independently reviewed by myself. CT scan of the cervical spine was obtained. There are degenerative changes. There is no acute fracture or spondylolisthesis. This was interpreted by the radiologist and was also dependently reviewed by myself. Patient was advised of her findings. Patient was instructed to follow-up with her primary care physician in 5 to 7 days. Patient understood and was agreeable with the plan. All questions were answered. Radiography Diagnostic Testing: Clinical Impression(s) from Imaging Studies Brain CT 05/02/24 21:12 IMPRESSION: There are no acute findings. Chronic involutional changes of the brain. Electronically Signed: Herber Myers MD at 21:44 EDT , Cervical Spine CT 05/02/24 21:12 IMPRESSION: Degenerative changes of the cervical spine. There are no acute findings. Electronically Signed: Herber Myers MD at 21:47 EDT , Discharge Plan Triage Chief Complaint: Fall ED Midlevel Provider: Josh Pandey ED Provider: Lebron Garcia Dx/Rx/DC Orders Clinical Impression: Fall, Head injury Instructions: Falls Prevent Outside, Exercises to Prevent Falls, ED Head Injury (Adult) Prescriptions: No Action primidone 50 MG tablet 50 mg PO TID polyethylene glycol 3350 17 GM powder in packet 17 g PO DAILY PRN (Reason: Constipation) lisinopril 20 MG tablet 20 mg PO DAILY ondansetron HCl [Zofran] 4 MG tablet 4 mg PO Q8H PRN (Reason: Nausea) acetaminophen 500 MG tablet 2 tab PO TID pyridoxine (vitamin B6) 50 MG tablet 150 mg PO DAILY sertraline [Zoloft] 50 MG tablet 50 mg PO DAILY atenolol 50 MG tablet 50 mg PO DAILY multivitamin with folic acid [Thera] 1 TABLET tablet 1 tab PO DAILY hyoscyamine sulfate 0.125 MG tablet, sublingual 0.125 mg sublingual Q12H PRN PRN (Reason: stomach cramps) quetiapine [Seroquel] 25 mg tablet 25 mg PO QHS sodium chloride 1 gram Tablet 1 g PO TID Qty: 60 0RF menthol-zinc oxide [Calmoseptine] 0.44-20.6 % Ointment 1 applic topical 4X/DAY Qty: 0 0RF Protocol: *Topical Application Instructions APPLICATION INSTRUCTIONS: apply to affected areas potassium chloride [Klor-Con M15] 15 MEQ tablet,ER particles/crystals 30 meq PO DAILY Qty: 0 0RF Rx Instructions: Hold if K more than 5.0 Primary Care Provider: Karli Thayer Referrals: Karli Thayer DO [Primary Care Provider] - Activity Restrictions/Additional Instructions: You had a normal CT scan of the brain, normal CT scan of the neck. Follow-up outpatient Print Language: Burkinan Disposition Disposition: Home, Self Care
[2024-05-02 23:17] VITALS: BP 162/93; PULSE 76; RESP 20; TEMP 35.8; O2SAT 94
--- NOTE | 2024-05-02 23:19 | ED.RN ---
Pt requires squad back to extended care facility due to not having assistive device and requiring extensive assistance with ambulation.
== END 2024-05-02 23:20 | disposition home or self-care (01) ==
PROVIDERS: Emergency Provider Emergency Medicine; PCP Internal Medicine; Visit Provider Emergency Medicine
DX: S09.90XA Unspecified injury of head, initial encounter (principal); G20.A1 Parkinson's disease without dyskinesia, without mention of fluctuations; F02.80 Dementia in other diseases classified elsewhere, unspecified severity, without behavioral disturbance, psychotic disturbance, mood disturbance, and anxiety; E11.9 Type 2 diabetes mellitus without complications; W01.198A Fall on same level from slipping, tripping and stumbling with subsequent striking against other object, initial encounter; Y93.H2 Activity, gardening and landscaping; I10 Essential (primary) hypertension; E78.5 Hyperlipidemia, unspecified; Z79.899 Other long term (current) drug therapy; Z98.2 Presence of cerebrospinal fluid drainage device
CPT/HCPCS: 70450; 72125; 99282

== ENCOUNTER → 2024-06-16 | Outpatient (REF) | payer MEDICARE, MEDICAID, SELFPAY ==
[2024-06-16 08:20] LABS: Hematocrit 38.2 % (37-47); Hemoglobin 12.9 g/dL (12.0-15.0); Mean Corp Hgb Conc 33.8 g/dL (32-36); Mean Corpuscular Hgb 31.7 pg (27.0-32.0); Mean Corpuscular Volume 93.9 fL (81-99); Mean Platelet Vol. 10.7 fl (6.2-12.0); Platelet Count 270 K/mm3 (150-450); RBC Distribution Width CV 12.4 % (11.6-14.6); Red Blood Count 4.07 M/mm3 (4.2-5.4); White Blood Count 7.4 K/mm3 (4.4-11.0)
[2024-06-16 08:57] LABS: ALB/GLOB Ratio 1.2 RATIO (0.9-2.4); AST(SGOT) 15 U/L (15-37); Alanine Aminotransfer ALT/SGPT 16 U/L (13-56); Albumin, Serum 3.8 g/dL (3.2-5.0); Alkaline Phosphatase 75 U/L (45-117); Anion Gap 8 (5-15); BUN 13 mg/dL (7-18); BUN/Creat Ratio 15.5 RATIO (10-20); Chloride 98 mmol/L (98-107); Creatinine, Serum 0.84 mg/dL (0.55-1.02); EST Glomerular Filtration Rate 69 mL/min (>60); Est Glom Filt Rate - Afr Amer 83 mL/min (>60); Globulin 3.3 g/dL (2.2-4.2); Glucose 98 mg/dL (74-106); Protein, Total 7.1 g/dL (6.4-8.2); Sodium Level 132 mmol/L (136-145)
== END ==
LOC: OLS.SWAL 05:00
PROVIDERS: PCP Internal Medicine; Visit Provider Internal Medicine
DX: R73.02 Impaired glucose tolerance (oral) (principal)
CPT/HCPCS: 36415; 80053; 85027

== ENCOUNTER → 2024-06-23 | Outpatient (REF) | payer MEDICARE, MEDICAID, SELFPAY ==
[2024-06-23 11:35] LABS: Hemoglobin A1c 5.6 % (3.8-5.6)
== END ==
LOC: OLS.SWAL 05:00
PROVIDERS: PCP Internal Medicine; Visit Provider Internal Medicine
DX: R73.09 Other abnormal glucose (principal)
CPT/HCPCS: 36415; 83036

== ENCOUNTER → 2024-09-16 | Outpatient (REF) | payer MEDICARE, MEDICAID, SELFPAY ==
[2024-09-16 11:14] LABS: Hematocrit 38.6 % (37-47); Hemoglobin 13.2 g/dL (12.0-15.0); Mean Corp Hgb Conc 34.2 g/dL (32-36); Mean Corpuscular Hgb 32.6 pg (27.0-32.0); Mean Corpuscular Volume 95.3 fL (81-99); Mean Platelet Vol. 10.7 fl (6.2-12.0); Platelet Count 275 K/mm3 (150-450); RBC Distribution Width CV 12.9 % (11.6-14.6); RBC Distribution Width SD 44.8 fl (35.1-43.9); Red Blood Count 4.05 M/mm3 (4.2-5.4); White Blood Count 7.1 K/mm3 (4.4-11.0)
[2024-09-16 11:35] LABS: ALB/GLOB Ratio 1.2 RATIO (0.9-2.4); AST(SGOT) 16 U/L (15-37); Alanine Aminotransfer ALT/SGPT 16 U/L (13-56); Albumin, Serum 3.9 g/dL (3.2-5.0); Alkaline Phosphatase 74 U/L (45-117); Anion Gap 7 (5-15); BUN 12 mg/dL (7-18); BUN/Creat Ratio 18.8 RATIO (10-20); Calcium,Total 9.2 mg/dL (8.5-10.1); Chloride 96 mmol/L (98-107); Creatinine, Serum 0.64 mg/dL (0.55-1.02); EST Glomerular Filtration Rate 94 mL/min (>60); Est Glom Filt Rate - Afr Amer 114 mL/min (>60); Globulin 3.3 g/dL (2.2-4.2); Glucose 89 mg/dL (74-106); Potassium 4.1 mmol/L (3.5-5.1); Protein, Total 7.2 g/dL (6.4-8.2); Sodium Level 132 mmol/L (136-145)
== END ==
LOC: OLS.SWAL 05:00
PROVIDERS: PCP Internal Medicine; Visit Provider Internal Medicine
DX: R73.02 Impaired glucose tolerance (oral) (principal)
CPT/HCPCS: 36415; 80053; 85027

== ENCOUNTER → 2024-11-10 12:30 | Outpatient (REF) | payer MEDICARE, MEDICAID, SELFPAY ==
[2024-11-11 09:12] LABS: Bacteria 0 SEEN /hpf (None Seen); Mucous, Urine 0 SEEN /hpf (<or=2+)
[2024-11-11 09:25] LABS: Color, Urine Yellow (Yellow); Glucose, Dipstick Normal (Normal); Ketone-Dipstick Negative (Negative); Leukocyte Esterase-Dipstick 100 /ul (Negative); Nitrite-Dipstick Negative (Negative); Occult Blood-Urine 50 /ul (Negative); Protein-Dipstick 30 mg/dl (Negative); Urine Bilirubin Dipstick Negative (Negative); Urine Clarity Sl. Cloudy (Clear); Urine Urobilinogen Normal (Normal)
[2024-11-11 09:33] LABS: Squamous Epithelial Cells - UA 5-10 SEEN /hpf (5-10)
[2024-11-11 09:34] LABS: Red Blood Cells-Urine 0-5 SEEN /hpf (0-5); White Blood Cells 0-5 SEEN /hpf (0-5)
== END ==
LOC: OLS.SWAL 12:30
PROVIDERS: PCP Internal Medicine; Visit Provider Internal Medicine
DX: N39.0 Urinary tract infection, site not specified (principal)
CPT/HCPCS: 81001; 87086

== ENCOUNTER → 2024-12-17 06:42 | Outpatient (REF) | payer MEDICARE, MEDICAID, SELFPAY ==
[2024-12-17 08:45] LABS: Hematocrit 38.2 % (37-47); Hemoglobin 12.6 g/dL (12.0-15.0); Mean Corpuscular Hgb 31.3 pg (27.0-32.0); Mean Platelet Vol. 10.8 fl (6.2-12.0); Platelet Count 277 K/mm3 (150-450); RBC Distribution Width CV 13.2 % (11.6-14.6); RBC Distribution Width SD 46.2 fl (35.1-43.9); Red Blood Count 4.02 M/mm3 (4.2-5.4); White Blood Count 7.2 K/mm3 (4.4-11.0)
[2024-12-17 08:54] LABS: Scan Indicated on CBC? Y/N NO
[2024-12-17 09:08] LABS: AST(SGOT) 21 U/L (15-37); Alanine Aminotransfer ALT/SGPT 17 U/L (13-56); Albumin, Serum 3.4 g/dL (3.2-5.0); Alkaline Phosphatase 64 U/L (45-117); Anion Gap 10 (5-15); BUN 12 mg/dL (7-18); BUN/Creat Ratio 20.4 RATIO (10-20); Calcium,Total 9.3 mg/dL (8.5-10.1); Chloride 97 mmol/L (98-107); Creatinine, Serum 0.59 mg/dL (0.55-1.02); EST Glomerular Filtration Rate 103 mL/min (>60); Est Glom Filt Rate - Afr Amer 125 mL/min (>60); Globulin 3.4 g/dL (2.2-4.2); Glucose 86 mg/dL (74-106); Protein, Total 6.8 g/dL (6.4-8.2); Sodium Level 133 mmol/L (136-145)
[2024-12-17 15:52] LABS: Hemoglobin A1c 5.8 % (3.8-5.6)
== END ==
LOC: OLS.SWAL 06:42
PROVIDERS: PCP Internal Medicine; Visit Provider Internal Medicine
DX: R73.02 Impaired glucose tolerance (oral) (principal)
CPT/HCPCS: 36415; 80053; 83036; 85027

== ENCOUNTER → 2025-02-25 | Outpatient (REF) | payer MEDICARE, MEDICAID, SELFPAY ==
[2025-02-25 08:17] LABS: Bacteria 0 SEEN /hpf (None Seen); Mucous, Urine 0 SEEN /hpf (<or=2+); White Blood Cells 0 SEEN /hpf (0-5)
[2025-02-25 08:31] LABS: Hematocrit 34.9 % (37-47); Mean Corp Hgb Conc 34.4 g/dL (32-36); Mean Corpuscular Hgb 32.1 pg (27.0-32.0); Mean Corpuscular Volume 93.3 fL (81-99); Mean Platelet Vol. 10.7 fl (6.2-12.0); Platelet Count 243 K/mm3 (150-450); RBC Distribution Width CV 12.7 % (11.6-14.6); RBC Distribution Width SD 43.6 fl (35.1-43.9); Red Blood Count 3.74 M/mm3 (4.2-5.4)
[2025-02-25 08:32] LABS: Color, Urine Yellow (Yellow); Glucose, Dipstick Normal (Normal); Ketone-Dipstick Negative (Negative); Leukocyte Esterase-Dipstick Negative /ul (Negative); Nitrite-Dipstick Negative (Negative); Occult Blood-Urine 10 /ul (Negative); Protein-Dipstick 15 mg/dl (Negative); Urine Bilirubin Dipstick Negative (Negative); Urine Clarity Sl. Cloudy (Clear); Urine Urobilinogen Normal (Normal)
[2025-02-25 08:52] LABS: Red Blood Cells-Urine 0-5 SEEN /hpf (0-5); Squamous Epithelial Cells - UA 0-5 SEEN /hpf (5-10)
[2025-02-25 09:06] LABS: Hemoglobin A1c 5.7 % (<=5.6)
[2025-02-25 09:08] LABS: Anion Gap 12 (5-15); BUN 12 mg/dL (4-19); BUN/Creat Ratio 18.4 RATIO (10-20); Calcium,Total 8.8 mg/dL (7.6-11.0); Carbon Dioxide 23.4 mmol/L (21.0-32.0); Chloride 96 mmol/L (98-108); Cholesterol 208 mg/dL (<=200); Creatinine, Serum 0.62 mg/dL (0.70-1.20); EST Glomerular Filtration Rate 88 (>60); Glucose 98 mg/dL (70-99); High Density Lipoprotein 66 mg/dL; Low Density Lipoprotein Calc. 125 mg/dL; Potassium 4.2 mmol/L (3.3-5.1); Sodium Level 132 mmol/L (133-145); Triglycerides 85 mg/dL; Very Low Density Lipoprotein 17 mg/dL (5-40); cholesterol:hdl ratio screen 3.17
[2025-02-25 09:33] LABS: Microalbumin,Random Urine 22.4 mg/L (NO RANGE EST.); Microalbumin:Creatinine Ratio 356.1 mg/g CRE
== END ==
LOC: OLS.SWAL 05:00
PROVIDERS: PCP Internal Medicine; Visit Provider Internal Medicine
DX: E78.5 Hyperlipidemia, unspecified (principal); E03.9 Hypothyroidism, unspecified; I10 Essential (primary) hypertension; E11.9 Type 2 diabetes mellitus without complications; D64.9 Anemia, unspecified; E87.1 Hypo-osmolality and hyponatremia
CPT/HCPCS: 36415; 80048; 80061; 81001; 82043; 82570; 83036; 84443; 85027

== ENCOUNTER → 2025-03-16 05:00 | Outpatient (REF) | payer MEDICARE, MEDICAID, SELFPAY ==
[2025-03-16 10:01] LABS: Hematocrit 38.5 % (37-47); Hemoglobin 12.9 g/dL (12.0-15.0); Mean Corp Hgb Conc 33.5 g/dL (32-36); Mean Corpuscular Hgb 32.3 pg (27.0-32.0); Mean Corpuscular Volume 96.3 fL (81-99); Mean Platelet Vol. 11.3 fl (6.2-12.0); Platelet Count 277 K/mm3 (150-450); RBC Distribution Width CV 12.7 % (11.6-14.6); RBC Distribution Width SD 44.7 fl (35.1-43.9); White Blood Count 7.6 K/mm3 (4.4-11.0)
[2025-03-16 10:16] LABS: ALB/GLOB Ratio 1.7 RATIO (0.9-2.4); AST(SGOT) 21 U/L (<=31); Alanine Aminotransfer ALT/SGPT 12 U/L (<=34); Albumin, Serum 4.4 g/dL (3.4-4.8); Alkaline Phosphatase 75 U/L (35-104); Anion Gap 14 (5-15); BUN 12 mg/dL (4-19); BUN/Creat Ratio 21.5 RATIO (10-20); Calcium,Total 9.4 mg/dL (7.6-11.0); Carbon Dioxide 20.6 mmol/L (21.0-32.0); Chloride 95 mmol/L (98-108); Creatinine, Serum 0.57 mg/dL (0.70-1.20); EST Glomerular Filtration Rate 90 (>60); Globulin 2.7 g/dL (2.2-4.2); Glucose 99 mg/dL (70-99); Potassium 4.3 mmol/L (3.3-5.1); Sodium Level 129 mmol/L (133-145); Total Bilirubin 0.27 mg/dL (0.00-1.30)
== END ==
LOC: OLS.SWAL 05:00
PROVIDERS: PCP Internal Medicine; Visit Provider Internal Medicine
DX: R73.02 Impaired glucose tolerance (oral) (principal)
CPT/HCPCS: 36415; 80053; 85027

== ENCOUNTER → 2025-03-23 | Outpatient (REF) | payer MEDICARE, MEDICAID, SELFPAY ==
[2025-03-23 07:38] LABS: Anion Gap 11 (5-15); BUN 13 mg/dL (4-19); BUN/Creat Ratio 21.4 RATIO (10-20); Calcium,Total 9.5 mg/dL (7.6-11.0); Carbon Dioxide 24.3 mmol/L (21.0-32.0); Chloride 94 mmol/L (98-108); Creatinine, Serum 0.62 mg/dL (0.70-1.20); EST Glomerular Filtration Rate 88 (>60); Glucose 97 mg/dL (70-99); Potassium 4.4 mmol/L (3.3-5.1); Sodium Level 129 mmol/L (133-145)
== END ==
LOC: OLS.SWAL 04:00
PROVIDERS: PCP Internal Medicine; Referring Provider Internal Medicine; Visit Provider Internal Medicine
DX: R73.02 Impaired glucose tolerance (oral) (principal)
CPT/HCPCS: 36415; 80048

== ENCOUNTER → 2025-04-26 | Outpatient (CLI) | payer MEDICARE, MEDICAID, SELFPAY ==
--- NOTE | 2025-04-26 15:52 | ST.MBS ---
Modified Barium Swallow Patient Information Study Date: 04/26/25 Study Time: 13:00 Direct Billable Minutes: 116 Total Minutes procedure & reportin Diagnosis: Choking in adult R09.89 Referring Physician: Karli Thayer Reason for Referral: Daughter present and provided majority of history. [facility] staff and family are concerned for worsening swallowing difficulty in the past 6 months. Pt did have ST at [facility], but was discharged early spring on regular textures / thin liquids. No instrumental swallowing assessment was completed during POC. Concern for choking incident on candy at [facility] prompted a physician visit, which recommended this MBSS. Per daughter, she coughs the most w/ foods, but it can be any foods (e.g. cereal, meat). Patient reports difficulty swallowing large medications, especially if she takes multiple at a time. Pt feels retention of foods in her throat and upper esophagus at times. Staff has told daughter that she has trouble swallowing at all meals. No EMR records of MBSS completed here; however, daughter thinks she may have had an MBSS in 2016 after pt had a IMMIGRATION CASE WORKER shunt placed. Medical History: Parkinson's disease, Acute gastritis, DM type 2, Metabolic encephalopathy, Unspecified dementia, Age-related physical debility, Unspecified protein-calorie malnutrition, Presence of CSF drainage device, Anemia, HTN, HLD - See hard chart and EMR for full PMH. Current Diet Ordered: Regular textures / Thin liquids Dentition: Natural Teeth (Bottom dentition) Mental Status: Impaired Respiratory Status: Oxygenating on Room Air Penetration-Aspiration Scale Penetration-Aspiration Scale: OBJECTIVE ASSESSMENT OF SWALLOW FUNCTION (QUANTITATIVE ? PER TRIAL): PENETRATION / ASPIRATION SCALE (DIETZ): 1 = does not enter airway 2 = enters airway/above vocal folds/ejected 3 = enters airway/above vocal folds/not ejected 4 = enters airway/contacts vocal folds/ejected 5 = enters airway/contacts vocal folds/not ejected 6 = enters airway/below vocal folds/ejected 7 = enters airway/below vocal folds/not ejected despite effort 8 = enters airway/below vocal folds/no effort VIDEOFLOROSCOPIC SCALE SCORE (DIETZ): Grade I = aspiration of material that has penetrated into the laryngeal vestibule, intact cough reflex Grade II = aspiration < 10 % of the bolus, intact cough reflex Grade III = aspiration of < 10 % of the bolus, reduced cough reflex or aspiration of > 10 % of the bolus, intact cough reflex Grade IV = aspiration of > 10 % of the bolus, reduced cough reflex Penetration-Aspiration Scale Score Thin Liquid via teaspoon: Result: 1= does not enter airway Thin Liquid via teaspoon Trial 2: Result: 1= does not enter airway Thin Liquid via small single sip: cup: Result: 1= does not enter airway [place] Thick Liquid via small single sip: cup: Result: 1= does not enter airway Pudding via teaspoon: Result: 1= does not enter airway Comment: Esophageal screen - Mild retention in the upper, middle, and lower esophagus. 1/2 Cookie: Result: 1= does not enter airway Comment: Esophageal screen - Retention throughout the middle and lower esophagus. Thin Liquid via single sip: straw: Result: 1= does not enter airway Comment: Esophageal screen - Liquid wash mostly cleared retention of cookie. Thin Liquid via sequential sips:straw: Result: 2= enter airway/above vocal folds/ejected Barium tablet w/ thin water liquid wash: Result: 1= does not enter airway Comment: Esophageal screen - Retention in lower esophagus despite an additional thin liquid wash. Barium tablet w/ barium pudding: Result: 1= does not enter airway Comment: Esophageal screen - Retention in middle esophagus, which cleared though the LES (along w/ tablet from previous trial) w/ liquid wash (water). Oral Phase Labial Seal: Interlabial escape, no progression to anterior lip Tongue Control During Bolus Hold: Posterior escape of greater than half of bolus Bolus Preparation/Mastication: Disorganized chewing/mashing with solid pieces of bolus unchewed (small pieces un-chewed) Bolus Transport/Lingual Motion: Slowed tongue motion Oral Residue: Residue collection on oral structures Pharyngeal Phase Initiation of Pharyngeal Swallow: Bolus head at posterior laryngeal surgace of epiglottis Soft Palate Elevation: No bolus between soft palate and pharyngeal wall Laryngeal Elevation: Comp. Superior move thyroid cart w/comp. apprx arytenoid cart-epig pet Anterior Hyoid Excursion: Complete anterior movement Epiglottic Movement: Complete inversion Laryngeal Vestibule Closure at Height of Swallow: Incomplete; narrow column of air/contrast in laryngeal vestibule (trace laryngeal penetration w/ complete ejection 1X) Pharyngeal Stripping Wave: Present - complete Pharyngoesophageal Segment Opening: Complete distension and complete duration; no obstruction of flow Tongue Base Retraction: Narrow column of contrast between tongue base & post. pharyngeal wall Pharyngeal Residue: Collection of residue within or on pharyngeal structures Esophageal Phase Esophageal Clearance: Esophageal retention Diagnosis/Impression Diagnosis: Mild oral dysphagia R13.11; Esophageal dysphagia R13.14 Impression: The oral phase is primarily marked by... -Decreased mastication w/ small pieces of cookie un-chewed. -Decreased bolus control w/ posterior loss of with a little less than 1/2 of thin liquid and pudding boluses to the posterior surface of the epiglottis prior to swallow onset. -Slowed tongue motion for A-P transport. -Piecemeal deglutition of cookie. The pharyngeal phase is grossly WNL for pt's age. Trace laryngeal penetration 1X of thin liquids via sequential sips that fully ejected. No aspiration. Trace-mild pharyngeal residue in oropharynx due to very mildly reduced TB retraction. The esophageal phase is primarily marked by... -Retention of pudding, cookie, and barium tablets in the esophagus, which mostly cleared provided liquid washes. See esophageal screens above for detail. Recommendations Diet: Easy to Chew Textures (Moisten dry textures) and Thin Liquids Comment: Medications whole in puree w/ liquid wash STOP meal if increased s/s of aspiration or sensation of retention despite use of strategies listed below and resume meal at a later time. Compensatory Strategies: Small Bites, Small Sips, Slow Rate, Alternate bites/solids and sips/liquids (Take a sip after every 1-2 bites) and Sitting upright (During and 60min after meal) Supervision: 1:1 Direct Supervision Recommend Repeat Modified Barium Swallow: TBD Need for Skilled Speech Therapy Services: Yes Comment: -Train the patient in use of strategies to decrease risk for aspiration, especially reflux aspiration. -Ongoing assessment of diet tolerance of recommended textures. -Train the patient in oropharyngeal exercise program to improve bolus control and TB retraction (lingual resistance, lingual coordination, Luann). Recommended Referrals: GI Consult Education Completed: 1. Described result of evaluation., 4. Family/caregivers understand evaluation & agree w/ goals & tx plan. and 7. Pt requires further education on strategies & risks. Comment: ELECTROMYOGRAPHIC TECHNICIAN faxed diet order, recommendation for direct supervision, and recommendation for GI consult to [facility] 04/26/2025. Status Active ST Patient: Active Contact Information [facility] Speech Therapy:: Marielena Roberts M.A. CCC-ELECTROMYOGRAPHIC TECHNICIAN? Speech-Language Pathologist?? [facility] [address] [place] [address]? [email or web address]?? [phone]
== END | disposition home or self-care (01) ==
LOC: RAD 12:19
PROVIDERS: PCP Internal Medicine; Referring Provider Internal Medicine; Visit Provider Internal Medicine
DX: R09.89 Other specified symptoms and signs involving the circulatory and respiratory systems (principal)
CPT/HCPCS: 74230; 92611

== ENCOUNTER → 2025-05-03 | Outpatient (REF) | payer MEDICARE, MEDICAID, SELFPAY ==
[2025-05-03 11:32] LABS: Hematocrit 35.0 % (37-47); Hemoglobin 12.2 g/dL (12.0-15.0); Immature Granulocytes Count 0.020 X10^3/uL (0.0-0.0); Mean Corp Hgb Conc 34.9 g/dL (32-36); Mean Corpuscular Volume 92.1 fL (81-99); Mean Platelet Vol. 10.7 fl (6.2-12.0); NRBC Flagged by Analyzer 0 % (0-5); Platelet Count 267 K/mm3 (150-450); RBC Distribution Width CV 13.1 % (11.6-14.6); RBC Distribution Width SD 43.8 fl (35.1-43.9); Red Blood Count 3.80 M/mm3 (4.2-5.4); White Blood Count 6.9 K/mm3 (4.4-11.0)
[2025-05-03 12:11] LABS: Anion Gap 11 (5-15); BUN 11 mg/dL (4-19); BUN/Creat Ratio 21.9 RATIO (10-20); Calcium,Total 9.2 mg/dL (7.6-11.0); Carbon Dioxide 24.4 mmol/L (21.0-32.0); Chloride 95 mmol/L (98-108); Glucose 92 mg/dL (70-99); Magnesium 2.0 mg/dL (1.5-2.2); Potassium 4.2 mmol/L (3.3-5.1); Vitamin B12 943 pg/mL (180-914); Vitamin D,25 Hydroxy 25.0 ng/mL (30-100)
== END ==
LOC: OLS.SW 04:00
PROVIDERS: PCP Internal Medicine; Referring Provider Internal Medicine; Visit Provider Internal Medicine
DX: E11.9 Type 2 diabetes mellitus without complications (principal)
CPT/HCPCS: 36415; 80048; 82306; 82607; 83735; 85025

== ENCOUNTER 2025-06-29 05:52 | Day surgery (SDC) | payer MEDICARE, MEDICAID, SELFPAY ==
[2025-06-29] VITALS (8 sets, daily range): BP systolic 108–144; BP diastolic 60–75; PULSE 59–72; RESP 14–16; TEMP 36.7–37; O2SAT 94–98; BMI 32.5
[2025-06-29] MEDS: Lactated Ringers 1,000 ML 15 ML IV (06:49)
--- NOTE | 2025-06-29 07:00 | EGD_PTH ---
PATIENT: GAGE CONNOR LOC: EN U#:[id number] AGE/SX: 85/F ROOM: RE06/29/[address]: Dr. Farhan Álvarez DO : 1940 BED: DIS: 06/29/2025 SPEC #: [id number] RECD: 06/29/25 08:36 STATUS: BERNY RESharan #: [id number] CHRIS: 06/29/25 07:[address]: Farhan Álvarez DEPT: SURGICAL PATHOLOGY RECD BY: Ashish Staples ENTERED: 06/29/25 10:59 SP TYPE: EGD BIOPSY BENJAMIN DR: Dr. Josh Lafleur MD Tissues: A - Esophagus, NOS Procedures: Surgery Specimen Level IV HEADER OPERATION: EGD, biopsy, dilation PRE-OP DIAGNOSIS: Dysphagia, dementia, Parkinsons disease TISSUE SUBMITTED: A- Random esophagus biopsy MICROSCOPIC DIAGNOSIS A. Esophagus, random biopsy: Squamous mucosa with reactive changes. Negative for eosinophils. MICROSCOPIC DESCRIPTION Slides are reviewed. GROSS DESCRIPTION A. Received in fixative is one container labeled with the patient's name and designated Random esophagus biopsy. The specimen consists of two irregular fragments of light turner soft tissue, each measuring 0.4 cm. The specimen is totally submitted in one cassette. ID 06/29/2025 CPT:[id number]
--- NOTE | 2025-06-29 07:05 | HP.PCM_ITS ---
HPI - General General Date of Admission: 06/29/25 Date of Service: 06/29/25 Chief Complaint: Dysphagia HPI Narrative Chief Complaint: trouble swallowing Details: The patient is an 85-year-old female presenting with difficulty swallowing. The swallowing difficulty has been present for over six months, with the patient needing to eat slowly and experiencing issues with large bites of food. A modified barium swallow test showed mild retention in the esophagus, and the patient has been on a mechanical soft diet with pureed meats to aid swallowing. The patient has a history of dementia, which affects her ability to remember to drink fluids during meals, leading to concerns about aspiration. 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 The patient has been diagnosed with Parkinson's, which may contribute to her swallowing difficulties. She is currently taking Primidone for benign tremors and Seroquel for agitation. - seen in office today with her daughter and son Attestation: Documentation on this patient encounter was supported using ambient scribe technology/ voice AI technology. The patient consented to recording for the purpose of documenting the encounter. Provider reviewed content of the generated note prior to signature. . [facility] Medical History RLS (restless legs syndrome) Depression Gastric reflux History of hydrocephalus Hyperlipidemia Diabetes Hypertension Parkinson's disease Hyponatremia Dementia Physical debility Home Medications ?Medication ?Instructions ?Recorded ?Last Taken ?Type Quetiapine fumarate 25 mg PO BID 05/10/25 Unknow n History acetaminophen 325 mg capsule 650 mg PO ONCE 05/10/25 U nknown History cholecalciferol (vitamin D3) 125 125 mcg PO QDAY 05/10 Unknown History mcg (5,000 unit) capsule furosemide 20 mg tablet (Lasix) 20 mg PO QAM 05/10/25 Unknown History lisinopril 20 mg tablet 20 mg PO QDAY 05/10/25 Unkno wn History multivitamin 1 tab PO QAM 05/10/25 Unknow n History oxycodone 5 mg tablet 5 mg PO QHS 05/10/25 Unknown History pantoprazole 40 mg tablet,delayed 40 mg PO QDAY dyspha delfino #90 tabs 05/10/25 Unknown Rx release potassium chloride 10 mEq oral 15 meq PO QDAY 05/10/25 Unknown History packet (Pokonza) primidone 50 mg tablet 50 mg PO TID 05/10/25 Unknow n History pyridoxine HCL 50 mg PO DAILY 05/10/25 Unkn own History sertraline 150 mg capsule 150 mg PO QDAY 05/10/25 Unkn own History atenolol 50 mg tablet 50 mg PO DAILY 06/28/25 Unkn own History Allergy/AdvReac Type Severity Reaction Status Date / Time Sulfa (Sulfonamide Allergy Unknown Verified 06/28/25 10:10 Antibiotics) peanut AdvReac Other Verified 06/28/25 10:10 Family History Other Anxiety Arthritis Depression Hypertension Myocardial infarction Surgical History S/P HEALTH AND 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 ADVISOR shunt Social History Smoking Status: Never smoker ROS Constitutional Constitutional: Denies fatigue, fever(s), poor appetite, weight gain or weight loss Gastrointestinal Gastrointestinal: Denies belching, bloating, change in bowel habits, change in stool character, chewing difficulty, coffee ground emesis, constipation, cramping, diarrhea, dyspepsia, dysphagia, early satiety, excessive flatus, fecal incontinence, heartburn, hematemesis, hematochezia, hemorrhoids, loose stools, melena, nausea, odynophagia, rectal bleeding, tenesmus, vomiting or weight changes Vital Signs Vital Signs Vital Signs: 06/29/25 06:23 06/29/25 06:23 Temperature 98.6 F Temperature Source Temporal Pulse Rate 59 L Respiratory Rate 16 Respiratory Pattern Normal Blood Pressure 144/75 H Blood Pressure Mean 98 Blood Pressure Source Monitor Blood Pressure Position Semi-Fowlers Blood Pressure Location Right Arm Pulse Ox 97 Oxygen Delivery Method Room Air Weight Weight: 145 lb 8.081 oz Body Mass Index (BMI) 32.5 Physical Exam Const alert, oriented x3, no apparent distress and healthy appearing General Appearance: cooperative GI normal to inspection, nondistended, normoactive bowel sounds, soft to palpation, non-tender and non-distended Percussion: normal to percussion Rectal Exam: deferred Assessment & Plan Assessment/Plan (1) Dysphagia: PLAN: Assessment and Plan Assessment and Plan (1) Dysphagia: Plan: The plan for dysphagia includes scheduling an esophagogastroduodenoscopy (EGD) with dilation to assess and potentially alleviate esophageal narrowing. The patient will be started on a proton pump inhibitor (PPI) once daily to manage potential esophageal spasms due to acid reflux. Recommendations include a mechanical soft diet, alternating bites with sips of liquid, and ensuring one-on-one supervision during meals to prevent aspiration. (2) Dementia: Status: Acute Plan: Ongoing speech therapy is recommended to assist in training the patient in strategies to decrease the risk of aspiration and improve swallowing function. The patient should continue to have one-on-one supervision during meals to ensure safety and adherence to dietary recommendations. (3) Parkinsons disease: Status: Suspected Plan: The patient is advised to follow up with neurology to discuss the management of parkinsonism and its impact on swallowing. Consideration of medication adjustments, such as reviewing the use of Primidone and exploring other therapeutic options, will be discussed with neurology. Medications: New pantoprazole 40 mg PO QDAY 90 tabs 1RF dysphagia Discontinued menthol-zinc oxide 0.44-20.6 % (Calmoseptine) Discontinued Reason: Pt no longer taking 1 applic See Protocol topical 4X/DAY 0 grams 0RF sodium chloride Discontinued Reason: Pt no longer taking 1 g PO TID 60 tabs 0RF potassium chloride ER (Klor-Con M) Hold if K more than 5.0 Discontinued Reason: Pt no longer taking 30 mEq (2 x 15 mEq) PO DAILY 0 tabs 0RF Plan The patient is an 85-year-old female with a history of normal pressure hydrocephalus and Parkinson's, presenting with dysphagia. The dysphagia has been progressively worsening over the past six months, with difficulty swallowing large bites and a need for a mechanical soft diet. The modified barium swallow test indicated mild retention in the esophagus, raising concerns about potential aspiration due to dementia-related memory issues. The patient's Parkinson's may be contributing to her swallowing difficulties, and she is currently managed with Primidone for tremors. Patient Instructions: - Follow a mechanical soft diet and alternate bites with sips of liquid. - Ensure one-on-one supervision during meals to prevent choking. - Take the prescribed proton pump inhibitor once daily before breakfast. - Schedule and attend the esophagogastroduodenoscopy (EGD) with dilation. - Follow up with neurology to discuss Parkinsonism management. - Continue with speech therapy to improve swallowing techniques
--- NOTE | 2025-06-29 07:29 | PRE.ANES_ITS ---
ASA Classification* ASA Classification ASA Classification: 3 Assessment & Plan Anesthesia* Anesthesia Assessment Anesthesia Assessment: Discussed sedation and/or anesthesia options, risks, benefits, and alternatives with patient/parents/legal guardian/POA. Questions invited. The patient/parents/legal guardian/POA seems to understand and agrees to proceed with anesthesia plan. Reviewed the physical assessment, medical history, allergy history and patient home medications list prior to surgery/procedure/anesthetic and documented any changes. Performed airway and anesthesia risk assessments. Anesthesia Type Anesthesia Type: MAC History Source History Obtained from:: Patient and Chart Anesthesia Focused Assessment* Temperature: 98.6 F Pulse Rate: 59 Blood Pressure: 144/75 Respiratory Rate: 16 Pulse Ox: 97 Oxygen Delivery Method: Room Air Airway Assessment Mouth opens: 2 cm Mallampati Score: III Teeth Condition: Intact Neck Range of motion (ROM): Full ROM Labs Anesthesia Preop lab: CBC WBC 6.9 K/mm3 (4.4-11.0) 05/03/25 06:05 05/03/25 RBC 3.80 M/mm3 (4.2-5.4) L 05/03/25 06:05 05/03/25 Hgb 12.2 g/dL (12.0-15.0) 05/03/25 06:05 05/03/25 Hct 35.0 % (37-47) L 05/03/25 06:05 05/03/25 Plt Count 267 K/mm3 (150-450) 05/03/25 06:05 05/03/25 CHEMISTRY Potassium 4.2 mmol/L (3.3-5.1) 05/03/25 06:05 05/03/25 Sodium 130 mmol/L (133-145) L 05/03/25 06:05 05/03/25 Magnesium 2.0 mg/dL (1.5-2.2) 05/03/25 06:05 05/03/25 Phosphorus 1.7 mg/dL (2.5-4.9) L 05/07/19 05:14 05/07/19 BUN 11 mg/dL (4-19) 05/03/25 06:05 05/03/25 Creatinine 0.51 mg/dL (0.70-1.20) L 05/03/25 06:05 Glucose 92 mg/dL (70-99) 05/03/25 06:05 05/03/25 POC Glucose 105 mg/dL (74-106) 08/20/23 13:42 08/20/23 TSH 2.720 uIU/mL (0.300-4.200) 02/25/25 06:54 02/02 03/27 COAG PT 13.9 SECONDS (11.7-14.9) 09/19/21 08:54 Pre-Assessment Diagnosis/Proposed Procedure Planned Operative Procedure(s): EGD Anesthesia History 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 When Was Last Pacemaker Check QUESTION #4 FULL TEXT: You/Your Family Experience fever (hyperthermia) with Anesthesia Last Oral Intake Last Oral intake: Last Oral Intake NPO since 21:00 06/29/25 06:23 Meds taken in AM with sips of Yes 06/29/25 06:23 water? 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 Female Yes 06/28/25 10:15 HX of Motion Sickness No 06/28/25 10:15 HX of N/V After Surgery No 06/28/25 10:15 Non-Smoker Yes 06/28/25 10:15 Duration of Surgery greater No 06/28/25 10:15 than 60 minutes Number of Risk Factors 2 06/28/25 10:15 PONV Score Moderate Risk 06/28/25 10:15 Height & Weight Height & Weight: Anesthesia: Height & Weight Height 4 ft 8 in 06/29/25 06:23 Weight: 66 kg 06/29/25 06:23 Body Mass Index (BMI) 32.5 06/29/25 06:23 Respiratory Assessment Respiratory Assessment - high school science tutor: Respiratory Tract Infection Hx - high school science tutor Hx Respiratory Tract Infection No 06/28/25 10:15 STOP Sleep Apnea STOP Sleep Apnea - high school science tutor: STOP Sleep Apnea - high school science tutor Hx Hypertension Yes 06/28/25 10:15 Hx Sleep Apnea No 06/28/25 10:15 CPAP BIPAP Do you snore loudly (louder No 06/28/25 10:15 than talking or can be heard Do you often feel tired/ No 06/28/25 10:15 fatigued/ sleepy during daytime? Has anyone observed you stop No 06/28/25 10:15 breathing during sleep? STOP Results Negative 06/28/25 10:15 QUESTION #5 FULL TEXT : Do you snore loudly (louder than talking or can be heard through closed doors)? 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 Specify any problems Hx of Preganancy in last 3 No 06/28/25 10:15 Months Nurse Filling Out Transfusion [email or web address] 06/28/25 10:15 & Questions: Date: 06/28/25 06/28/25 10:15 Time: :06/28/25 10:15 Patient unable to answer at this time (ie. 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: /Reproductive Hx- high school science tutor Hx Now Gestational Age (in weeks): EDC: Hx Hx Para Hx Section SAB Active Medications Active Medications: Current Medications Generic Name Dose Route Start Last Admin Trade Name Freq PRN Reason Stop Dose Admin Lactated Ringer's 1,000 mls @ 15 mls/hr 06/29/25 06:15 06/29/25 06:49 IV 15 mls/hr .Q48H FRANCISCO J Administration PFSH Medical History RLS (restless legs syndrome) Depression Gastric reflux History of hydrocephalus Hyperlipidemia Diabetes Hypertension Parkinson's disease Hyponatremia Dementia Physical debility Home Medications ?Medication ?Instructions ?Recorded ?Last Taken ?Type Quetiapine fumarate 25 mg PO BID 05/10/25 Unknow n History acetaminophen 325 mg capsule 650 mg PO ONCE 05/10/25 U nknown History cholecalciferol (vitamin D3) 125 125 mcg PO QDAY 05/10 Unknown History mcg (5,000 unit) capsule furosemide 20 mg tablet (Lasix) 20 mg PO QAM 05/10/25 Unknown History lisinopril 20 mg tablet 20 mg PO QDAY 05/10/25 Unkno wn History multivitamin 1 tab PO QAM 05/10/25 Unknow n History oxycodone 5 mg tablet 5 mg PO QHS 05/10/25 Unknown History pantoprazole 40 mg tablet,delayed 40 mg PO QDAY dyspha delfino #90 tabs 05/10/25 06/29/25 Rx release potassium chloride 10 mEq oral 15 meq PO QDAY 05/10/25 Unknown History packet (Pokonza) primidone 50 mg tablet 50 mg PO TID 05/10/25 History pyridoxine HCL 50 mg PO DAILY 05/10/25 Unkn own History sertraline 150 mg capsule 150 mg PO QDAY 05/10/25 Unkn own History atenolol 50 mg tablet 50 mg PO DAILY 06/28/25 Unkn own History Allergy/AdvReac Type Severity Reaction Status Date / Time Sulfa (Sulfonamide Allergy Unknown Verified 06/28/25 10:10 Antibiotics) peanut AdvReac Other Verified 06/28/25 10:10 Family History Other Anxiety Arthritis Depression Hypertension Myocardial infarction Surgical History 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
--- NOTE | 2025-06-29 07:58 | OP.EGD_ITS ---
Patient Name: Anna Pettit Procedure Date: 06/29/2025 7:34 AM Date of : 1940 Age: 85 Procedure: Upper GI endoscopy Indications: Dysphagia Providers: Farhan Álvarez DO Referring MD: Karli Thayer Medicines: Monitored Anesthesia Care Patient Profile: This is an 85 year old female. Refer to note in patient chart for documentation of history and physical. Patient has symptoms of chronic cough and dysphagia with both liquids and solids. Complications: No immediate complications. Procedure: Pre-Anesthesia Assessment: - Prior to the procedure, a History and Physical was performed, and patient medications and allergies were reviewed. The patient is competent. The risks and benefits of the procedure and the sedation options and risks were discussed with the patient. All questions were answered and informed consent was obtained. Patient identification and proposed procedure were verified by the physician in the pre-procedure area. Mental Status Examination: alert and oriented. Airway Examination: normal oropharyngeal airway and neck mobility. Respiratory Examination: clear to auscultation. CV Examination: normal. Prophylactic Antibiotics: The patient does not require prophylactic antibiotics. Prior Anticoagulants: The patient has taken no anticoagulant or antiplatelet agents. ASA Grade Assessment: III - A patient with severe systemic disease. After reviewing the risks and benefits, the patient was deemed in satisfactory condition to undergo the procedure. The anesthesia plan was to use monitored anesthesia care (MAC). Immediately prior to administration of medications, the patient was re-assessed for adequacy to receive sedatives. The heart rate, respiratory rate, oxygen saturations, blood pressure, adequacy of pulmonary ventilation, and response to care were monitored throughout the procedure. The physical status of the patient was re-assessed after the procedure. After obtaining informed consent, the endoscope was passed under direct vision. Throughout the procedure, the patient's blood pressure, pulse, and oxygen saturations were monitored continuously. The Endoscope was introduced through the mouth, and advanced to the second part of duodenum. The upper GI endoscopy was accomplished without difficulty. The patient tolerated the procedure well. Scope In: 7:43:51 AM Scope Out: 7:52:08 AM Total Procedure Duration Time 0 hours 8 minutes 17 seconds Findings: Abnormal motility was noted in the esophagus. The cricopharyngeus was abnormal. There is a decrease in motility of the esophageal body. The distal esophagus/lower esophageal sphincter is spastic, but gives up passage to the endoscope. Primary peristaltic waves are noted. Biopsies were obtained from the proximal and distal esophagus with cold forceps for histology of suspected eosinophilic esophagitis. A guidewire was placed and the scope was withdrawn. Dilation was performed with a Savary dilator with no resistance at 51 Fr. The dilation site was examined and showed mild improvement in luminal narrowing. Estimated blood loss was minimal. A large hiatal hernia was present. No gross lesions were noted in the entire examined duodenum. Impression: - Abnormal esophageal motility. Dilated. - Large hiatal hernia. - No gross lesions in the entire examined duodenum. - Biopsies were taken with a cold forceps for evaluation of eosinophilic esophagitis. Recommendation: - Discharge patient to a senior care. - Diet per speech therapy. - Continue present medications. - Await pathology results. Procedure Code(s): --- Professional --- 34492, Esophagogastroduodenoscopy, flexible, transoral; with insertion of guide wire followed by passage of dilator(s) through esophagus over guide wire 32512, 59,51, Esophagogastroduodenoscopy, flexible, transoral; with biopsy, single or multiple CPT copyright 2021 [employer]. All rights reserved. The codes documented in this report are preliminary and upon communications lead review may be revised to meet current compliance requirements. Farhan Álvarez DO 06/29/2025 7:58:47 AM This report has been signed electronically. Number of Addenda: 0 Note Initiated On: 06/29/2025 7:34 AM
--- NOTE | 2025-06-29 07:59 | OP.PROVAT_ITS ---
06/29/2025 Karli Tahyer [address] [place] [address] Re : Upper GI endoscopy procedure for Anna Pettit Dear Dr. Thayer This procedure was performed on Sunday, June 29, 2025. My impressions and recommendations are as follows: Impressions : - Abnormal esophageal motility. Dilated. - Large hiatal hernia. - No gross lesions in the entire examined duodenum. - Biopsies were taken with a cold forceps for evaluation of eosinophilic esophagitis. Recommendations : - Discharge patient to a fdc. - Diet per speech therapy. - Continue present medications. - Await pathology results. My findings are described in the full procedure note, which is enclosed. If I can be of further assistance, please feel free to contact me at . Sincerely, Farhan Álvarez, 06/29/2025 7:58:47 AM This report has been signed electronically.
--- NOTE | 2025-06-29 08:06 | PCM.POST.ANE ---
Anesthesia: Postop Eval I Current Vital Signs Temperature: 98.2 F Pulse Rate: 72 Blood Pressure: 127/69 Respiratory Rate: 16 Pulse Ox: 98 Oxygen Delivery Method: Room Air Assessment Airway patent: Yes Spontaneous unlabored respirations: Yes Mental status: Awake and Calm nausea: No Vomiting: No Anesthesia Complication: No Fluid Hydration Crystalloid volume administer (ml): 800 Total IV fluid infused: 800 Progress Note Anesthesia document: Postop Eval 1 completed: Yes
--- NOTE | 2025-06-29 08:32 | PCM.POSTANE2 ---
Anesthesia Postop Eval I Sum Postop Eval Completion status Anesthesia document: Postop Eval 1 completed: Yes Anesthesia Postop Eval I Summary Anesthesia Postop Eval I Summary: Anesthesia Postop Eval I: Assessment Summary Airway patent Yes 06/29/25 08:07 [email or web address] Spontaneous unlabored Yes 06/29/25 08:07 [email or web address] respirations Mental status Awake,Calm 06/29/25 08:07 [email or web address] nausea No 06/29/25 08:07 [email or web address] Vomiting No 06/29/25 08:07 [email or web address] Anesthesia Postop Eval I: Fluid Summary Crystalloid volume administer 800 06/29/25 08:07 [email or web address] (ml) Colloids volume administered ( ml) Blood Product volume administered (ml) Total IV fluid infused 800 06/29/25 08:07 [email or web address] Anesthesia Postop Eval I: Summary Notes Anesthesia Complication No 06/29/25 08:07 [email or web address] Anesthesia Complication Comment: Post-operative progress note Anesthesia: Postop Eval II Evaluation Mental status: Awake Pain Level: 0 nausea: No Vomiting: No Complications Anesthesia Complication: No
== END 2025-06-29 08:54 | disposition home or self-care (01) ==
LOC: EN 05:56 → AC 05:57
PROVIDERS: PCP Family Medicine; Referring Provider Family Medicine; Visit Provider Internal Medicine Gastroenterology
PROC: 0DJ08ZZ Inspection of Upper Intestinal Tract, Via Natural or Artificial Opening Endoscopic (ICD-10-PCS; CPT 43235; principal; 2025-06-29 06:55)
DX: K22.4 Dyskinesia of esophagus (principal); G91.3 Post-traumatic hydrocephalus, unspecified; F03.90 Unspecified dementia, unspecified severity, without behavioral disturbance, psychotic disturbance, mood disturbance, and anxiety; E11.9 Type 2 diabetes mellitus without complications; K44.9 Diaphragmatic hernia without obstruction or gangrene; R13.10 Dysphagia, unspecified; Z98.2 Presence of cerebrospinal fluid drainage device; E78.5 Hyperlipidemia, unspecified; Z79.899 Other long term (current) drug therapy
CPT/HCPCS: 43248; 43239; 82962; 88305; C1769; J2405